=== PATIENT | female | born 1980 | race Caucasian/White ===

== ENCOUNTER → 2021-01-13 10:27 | Outpatient (BNVA) | payer OTHER, SELFPAY | PROVIDERS: Visit Provider Orthopaedic Surgery | DX: M23.91 Unspecified internal derangement of right knee (principal) | CPT/HCPCS: 99212 ==

== ENCOUNTER 2021-02-15 18:42 | Outpatient (REF) | payer OTHER, SELFPAY ==
--- NOTE | ~2021-02-15 | MR_ITS ---
EXAMINATION: MR KNEE WITHOUT CONTRAST, RIGHT CLINICAL INFORMATION: Unspecified internal derangement of right knee. Right knee medial pain, superior patella pain, symptoms since November 2020, tenderness, recent injury, and no previous surgery. COMPARISON: None TECHNIQUE: MRI of the knee without contrast was performed using routine sequences on a high-field scanner. FINDINGS: MENISCI: Medial Meniscus: Intact Lateral Meniscus: Intact LIGAMENTS: Cruciate: Intact Collateral: Intact EXTENSOR MECHANISM: The quadriceps and patellar tendons are intact. There are irregular enthesophytes at the quadriceps insertion site on the patella. There is mild nonspecific edema in the quadriceps fat pad. There is mild thickening and edema in the deep portion of the medial patellofemoral retinacular complex, toward the patellar insertion site, consistent with a mild sprain. ARTICULAR CARTILAGE/BONE: Patellofemoral Compartment: Normal. Medial Compartment: There are scattered areas of mild cartilage surface irregularity and thinning in the weightbearing medial compartment. Lateral Compartment: Normal. JOINT FLUID AND BURSAE: Normal. MR/MR knee RT wo con IMPRESSION: 1. Mild sprain of the medial patellofemoral retinacular complex. 2. Mild arthrosis in the weightbearing medial compartment.
== END 2021-02-15 18:43 | disposition home or self-care (01) ==
LOC: HO.MRI 18:42
PROVIDERS: Visit Provider Orthopaedic Surgery
DX: M23.91 Unspecified internal derangement of right knee (principal)
CPT/HCPCS: 73721

== ENCOUNTER → 2021-03-04 10:10 | Outpatient (BNVA) | payer OTHER, SELFPAY | PROVIDERS: Visit Provider Orthopaedic Surgery | DX: M70.50 Other bursitis of knee, unspecified knee (principal) | CPT/HCPCS: 99212 ==

== ENCOUNTER 2021-10-27 09:31 | Inpatient (IN) | payer OTHER, SELFPAY ==
[2021-10-27] VITALS (18 sets, daily range): BP systolic 103–138; BP diastolic 45–81; PULSE 82–103; RESP 16–20; TEMP 36.7–38; O2SAT 94–100; BMI 32.4; BMI 33.8
--- NOTE | ~2021-10-27 | CT_ITS ---
EXAMINATION: CT ABDOMEN AND PELVIS WITHOUT CONTRAST CLINICAL INFORMATION: Right rectal and buttock pain. COMPARISON: None TECHNIQUE: Multidetector volumetric imaging was performed from the superior aspect of the liver through the pubic symphysis. Sagittal and coronal reformatted images were obtained on the technologist's workstation. This CT examination was performed using dose optimization techniques as appropriate, variously including the following: *Automated exposure control *Adjustment of mA and/or kV according to patient size (this includes techniques or standardized protocols for targeted exams where dose is matched to indication/reason for exam; i.e. extremities or head) *Use of iterative reconstruction technique DLP: 707 mGy-cm FINDINGS: LUNG BASES: There is minimal atelectatic changes or scarring in both lung bases. Heart size is normal. LIVER, GALLBLADDER, AND BILIARY TREE: The liver is normal in size, shape, and attenuation. No focal hepatic lesion or biliary ductal dilatation is present. The gallbladder is unremarkable with no evidence of radiopaque gallstones, gallbladder wall thickening, or obvious pericholecystic inflammatory changes. PANCREAS: Unremarkable. SPLEEN: Unremarkable. ADRENAL GLANDS: Unremarkable. KIDNEYS AND URETERS: The kidneys are normal in size, shape, and attenuation. No hydronephrosis, hydroureter, or calculi seen. No perinephric stranding. BLADDER: Unremarkable. GASTROINTESTINAL TRACT: There is scattered stool and gas seen throughout the colon without any significant distention. Appendix is normal caliber. The small-bowel loops are normal caliber. ABDOMINAL WALL: There is a small umbilical hernia containing fat. LYMPH NODES: Normal. VASCULAR: Unremarkable. PELVIC VISCERA: There is a hypodense lesion in the right adnexa on top of the uterus measuring 3.5 x 2.5 x 2.46 cm and measuring 70 Hounsfield units, likely right ovarian cyst. OSSEOUS STRUCTURES: Unremarkable. CT/CT abdomen pelvis wo con IMPRESSION: No acute intra-abdominal process seen. Small hypodense lesion right adnexa on top of the uterus likely ovarian cyst. Correlation with ultrasound can be performed. Fleischner guidelines were followed.
--- NOTE | ~2021-10-27 | XR_ITS ---
EXAMINATION: XR CHEST CLINICAL INFORMATION: Shortness of breath. COMPARISON: Chest and rib radiographs dated 12/02/2010. TECHNIQUE: 2 views of the chest were obtained. FINDINGS: No significant abnormality is noted involving the heart, lungs, mediastinum, bony thorax or soft tissues. XR/XR chest 2V IMPRESSION: No acute cardiopulmonary process.
[2021-10-27 11:00] LABS: Basophils Percent Auto 0.1 % (0-2); Hematocrit 40.9 % (37.0-47.0); Hemoglobin 14.2 g/dl (12.0-16.0); Imm Gran Pct Auto 0.7 % (0.0-0.4); Lymphocytes Absolute Auto 1.4 X10*3/uL (1.2-4.9); Lymphocytes Percent Auto 5.3 % (20-40); MANUAL DIFF FLAG SCAN; Mean Corpuscular HGB Conc 34.7 g/dl (31.0-35.0); Mean Corpuscular Hemoglobin 29.8 pg (27.0-33.0); Mean Corpuscular Volume 85.9 fL (80.0-98.0); Monocytes Absolute Auto 1.4 X10*3/uL (0.1-1.2); Monocytes Percent Auto 5.2 % (2-11); Neutrophils Absolute Auto 23.8 x10*3/uL (2.0-8.3); Neutrophils Percent Auto 88.7 % (45-73); Platelet Count 221 X10*3/uL (160-400); Red Blood Count 4.76 X10*6/uL (4.20-5.50); Red Cell Distribution Width 12.2 % (11.0-16.0); SCAN SMEAR FLAG 1; White Blood Count 26.8 X10*3/uL (4.8-10.8)
[2021-10-27 11:17] LABS: Anion Gap 14 (12-20); Blood Urea Nitrogen 9 mg/dL (9-16); Calcium 9.4 mg/dL (8.4-10.2); Carbon Dioxide 23 mmol/L (22-29); Chloride 101 mmol/L (96-108); Creatinine Clr Calc Pharmacy 137.3; Estimated Glomerular Filt Rate > 60; Glucose Random 125 mg/dL (60-115); Potassium 3.5 mmol/L (3.3-5.1); Sodium 134 mmol/L (135-145)
--- NOTE | 2021-10-27 11:27 | ED_ITS ---
HPI - General Adult General Chief complaint: General Medical Stated complaint: anas abscess Time Seen by Provider: 10/27/21 11:17 Source: patient Mode of arrival: ambulatory Limitations: no limitations History of Present Illness HPI narrative: 40-year-old female presents for an anal abscess that started a few days ago. Last night the pain got severe, she feels that the pain is inside of her anus on the right side. States she was vomiting all night, she had chills, sweats, and subjective fevers last night. Related Data Home Medications Medication Instructions Recorded Confirmed levothyroxine PO 01/13/21 Previous Rx's Medication Instructions Recorded meloxicam 15 mg tablet 15 mg PO DAILY #30 tab 03/04/21 Allergies Allergy/AdvReac Type Severity Reaction Status Date / Time adhesive tape [ADHESIVE TAPE] Allergy Intermediate RASH Verified 03/04/21 10:16 adhesive Allergy Unknown rash Uncoded 09/19/18 00:00 Review of Systems Constitutional: Constitutional: Denies body ache(s), Reports chills, Reports fatigue, Reports fever(s), Denies headache(s), Reports malaise and Reports weakness Eyes: Eyes: Denies diplopia ENT: Denies vertigo, Denies dizziness, Denies otalgia, Denies headache(s), Denies mouth pain, Denies post nasal drip, Denies sinus pain, Denies sinus pressure, Denies sore throat and Denies throat swelling Cardiovascular: Cardiovascular: Denies chest pain, Denies syncope, Denies leg edema, Denies lightheadedness, Denies Loss of Consciousness, Denies palpitations and Denies dyspnea Respiratory: Respiratory: Denies chest congestion, Denies cough and Denies dys pnea Gastrointestinal: Gastrointestinal: Denies abdominal pain, Denies hematochezia, Denies constipation, Denies diarrhea, Reports nausea and Denies vomiting Genitourinary: Genitourinary: Reports no additional female genitourinary complaints Musculoskeletal: Musculoskeletal: Reports no additional musculoskeletal complaints Integumentary/Breasts: Comments: Pain in anus, large abscess Neurologic: Denies confusion, Denies vertigo, Denies dizziness, Denies syncope, Denies headache(s) and Reports weakness Psychiatric: Psychiatric: Reports anxiety, Denies confusion and Denies depression Endocrine: Endocrine: Reports fatigue and Denies palpitations Allergic/Immunologic: Allergic/Immunologic: Denies throat swelling PMFSH Past Medical History Surgical History H/O: hysterectomy Social History Social History Patient Tobacco Use Status: Current everyday Tobacco user Use of substances other than those prescribed or required for medical reasons: Yes Substance Use Type: Marijuana Substance Use Frequency: Daily Advance Directives: No Advance Directives Information Provided: No Current occupational status: employed Current occupation: [employer] Physical Exam ED Vital Signs: Vital Signs - 24 hr 10/27/21 10:35 10/27/21 10:56 10/27/21 11:09 Temperature 99.6 F 99.5 F 99.8 F Pulse Rate 103 H 84 96 Respiratory Rate 20 17 18 Blood Pressure 131/77 117/65 116/65 Pulse Oximetry 99 100 10/27/21 11:55 10/27/21 12:38 10/27/21 14:13 Temperature 98.8 F Pulse Rate 96 96 93 Respiratory Rate 18 18 20 Blood Pressure 138/81 134/75 121/71 Pulse Oximetry 97 95 10/27/21 15:01 10/27/21 16:00 10/27/21 16:03 Temperature 100.4 F 99.4 F Pulse Rate 94 92 93 Respiratory Rate 18 18 18 Blood Pressure 119/72 119/64 130/64 Pulse Oximetry 96 100 95 10/27/21 16:29 10/27/21 18:44 Temperature Pulse Rate 93 89 Respiratory Rate 17 18 Blood Pressure 108/52 L 113/71 Pulse Oximetry 97 98 BMI result Body Mass Index 32.4 Const General: alert, awake, acute distress, anxious and other (Tearful); No confusion Nutritional Appearance: well nourished Orientation/consciousness: patient oriented x3 and No confusion Limitations: no limitations HENMT Head: Yes normal to inspection, Yes normocephalic and Yes atraumatic Ears: hearing grossly normal bilaterally, external ears normal, TM's normal bilaterally and EAC's normal General nose exam: Normal external nose present Face and sinus: Yes normal facial exam and Yes sinuses nontender Mouth: Normal oral and palatal mucosa present Throat: Yes posterior oropharynx normal Eyes Conjunctivae: conjunctivae normal Pupils: Equal, round and reactive pupils present EOM: EOMs intact bilaterally Neck Neck: Yes full ROM, Yes no lymphadenopathy and Yes supple Resp Effort & Inspection: normal respiratory effort and able to speak in complete sentences Auscultation: clear to auscultation bilaterally, no crackles, no rales, no rhonchi and no wheezes Cardio Rate: regular rate Rhythm: regular rhythm Heart sounds: S1 normal heart sound present and S2 normal heart sound present GI Inspection: Yes normal to inspection Palpation (GI): Soft to palpation, nontender, no guarding and not rigid Percussion: Yes normal to percussion Auscultation: normal bowel sounds Rectal Exam - Female: visual inspection normal, normal sphincter tone, No Anal fissure(s) present and tenderness Skin Other: Patient complaining of right-sided rectal abscess, tender on right-side of internal rectal vault Neuro General: patient oriented x3 and No confusion Cranial nerves: Yes Equal, round and reactive pupils present Extrem General: Yes normal to inspection and Yes full ROM Psych Appearance: grossly normal Affect: normal affect Attitude: cooperative Thought process: Normal thought process present Course Course Course Narrative: 11:20 40-year-old female complains of abscess in her anus that got much worse last night. Subjective fevers last night. Patient meets sepsis criteria, she was initially tachycardic with a temperature of 99.8 degrees. Normotensive. Lactic returned at 1.0. White blood cell count 26.8. Initiated blood cultures, fluids, vanco, cefazolinto treat soft tissue infection at this time I called a sepsis alert Jami Erickson sepsis RN, spoke to me, and told me we are within the measure at this time Patient has a negative urine Gave morphine, Zofran, will image patient Patient extremely tender on rectal exam, no palpable abscess, patient very tender on right rectum wall Discussed imaging with Dr. Patel, who states patient weighing 88kg, an abscess should show up on CT. We are still in a global IV contrast shortage situation Reevaluation(s) Reevaluation #1: CT/CT abdomen pelvis wo con IMPRESSION: No acute intra-abdominal process seen. ? Small hypodense lesion right adnexa on top of the uterus likely ovarian cyst. Correlation with ultrasound can be performed.? CXR is negative, urine is negative. Patient has a source of infection, and dry CT scan is not showing any abscess Reevaluation #2: Spoke to [facility], Dr Rohit Fuentes, who did look at her CT and added this amendment: In the right mid to posterior perineum extending to the right medial gluteal region are two adjacent subcutaneous collections that appear contiguous. The first component is in the right perianal region at about the 7:00 position measuring approximately 3.7 x 2.2 x 3.2 cm (image 91, series 3; image 62, series 5). The second collection is seen mildly superior and lateral to the first measuring approximately 4.7 x 2.2 x 3.1 cm (image 84, series 3; image 55, series 5). Mild adjacent infiltrative changes are seen extending posteriorly into the medial right gluteal region. Evaluation for fistula is limited without intravenous contrast, but is suspected. This would be best delineated with contrast-enhanced pelvic MRI. Given these CT results, I re-examined patient. There is some induration of right buttock, no fluctuance or erythema. Patient is tender in her perineal region, no fluctuance or cellulitis. Pain patient states pain is inside her rectum Last meal was this morning [place] texted with Dr Gomez, who wants to come evaluate pt and take her to OR Reevaluation #3: DR Gomez will admit her and take her to OR Medical Decision Making Lab Data Result diagrams: 10/27/21 10:53 10/27/21 10:53 Labs: Lab Results 10/27/21 10/27/21 10/27/21 Range/Units 10:53 10:53 10:53 WBC 26.8 H (4.8-10.8) X10*3/uL RBC 4.76 (4.20-5.50) X10*6/uL Hgb 14.2 (12.0-16.0) g/dl Hct 40.9 (37.0-47.0) % MCV 85.9 (80.0-98.0) fL MCH 29.8 (27.0-33.0) pg MCHC 34.7 (31.0-35.0) g/dl RDW 12.2 (11.0-16.0) % Plt Count 221 (160-400) X10*3/uL MPV 11.0 (9.4-12.3) fL Immature Gran % (Auto) 0.7 H (0.0-0.4) % Neut % (Auto) 88.7 H (45-73) % Lymph % (Auto) 5.3 L (20-40) % [place] % (Auto) 5.2 (2-11) % Eos % (Auto) 0.0 (0-4) % Baso % (Auto) 0.1 (0-2) % Lymph # (Auto) 1.4 (1.2-4.9) X10*3/uL [place] # (Auto) 1.4 H (0.1-1.2) X10*3/uL Eos # (Auto) 0.0 (0.0-0.4) X10*3/uL Baso # (Auto) 0.0 (0.0-0.2) X10*3/uL Abs Immat Gran (auto) 0.20 H (0.00-0.03) X10*3/uL Absolute Neuts (auto) 23.8 H (2.0-8.3) x10*3/uL Absolute Nucleated RBC 0.000 (0.0-0.012) X10*3/uL Nucleated RBC % (auto) 0.0 (0.0-0.2) /100WBC Smear Tech's Comments VERIFIED Sodium 134 L (135-145) mmol/L Potassium 3.5 (3.3-5.1) mmol/L Chloride 101 (96-108) mmol/L Carbon Dioxide 23 (22-29) mmol/L Anion Gap 14 (12-20) BUN 9 (9-16) mg/dL Creatinine 0.61 (0.5-1.4) mg/dL Estim Creat Clear Calc 137.3 Estimated GFR > 60 Random Glucose 125 H (60-115) mg/dL Lactic Acid 1.0 (0.5-2.0) mmol/L Calcium 9.4 (8.4-10.2) mg/dL Urine Color Urine Appearance Urine pH (5.0-8.0) Ur Specific [place] (1.005-1.025) Urine Protein (NEG-TRACE) MG/DL Urine Glucose (UA) (NEG) MG/DL Urine Ketones (NEG) MG/DL Urine Blood (NEG) Urine Nitrite (NEG) Ur Leukocyte Esterase (NEG) Urine Test (NEGATIVE) COVID-19 (CHARLEY) (Negative) COVID-19 Clin Com 10/27/21 10/27/21 10/27/21 Range/Units 12:29 12:29 12:29 WBC (4.8-10.8) X10*3/uL RBC (4.20-5.50) X10*6/uL Hgb (12.0-16.0) g/dl Hct (37.0-47.0) % MCV (80.0-98.0) fL MCH (27.0-33.0) pg MCHC (31.0-35.0) g/dl RDW (11.0-16.0) % Plt Count (160-400) X10*3/uL MPV (9.4-12.3) fL Immature Gran % (Auto) (0.0-0.4) % Neut % (Auto) (45-73) % Lymph % (Auto) (20-40) % [place] % (Auto) (2-11) % Eos % (Auto) (0-4) % Baso % (Auto) (0-2) % Lymph # (Auto) (1.2-4.9) X10*3/uL [place] # (Auto) (0.1-1.2) X10*3/uL Eos # (Auto) (0.0-0.4) X10*3/uL Baso # (Auto) (0.0-0.2) X10*3/uL Abs Immat Gran (auto) (0.00-0.03) X10*3/uL Absolute Neuts (auto) (2.0-8.3) x10*3/uL Absolute Nucleated RBC (0.0-0.012) X10*3/uL Nucleated RBC % (auto) (0.0-0.2) /100WBC Smear Tech's Comments Sodium (135-145) mmol/L Potassium (3.3-5.1) mmol/L Chloride (96-108) mmol/L Carbon Dioxide (22-29) mmol/L Anion Gap (12-20) BUN (9-16) mg/dL Creatinine (0.5-1.4) mg/dL Estim Creat Clear Calc Estimated GFR Random Glucose (60-115) mg/dL Lactic Acid (0.5-2.0) mmol/L Calcium (8.4-10.2) mg/dL Urine Color YELLOW Urine Appearance CLEAR Urine pH 7.0 (5.0-8.0) Ur Specific [place] 1.015 (1.005-1.025) Urine Protein NEG (NEG-TRACE) MG/DL Urine Glucose (UA) NEG (NEG) MG/DL Urine Ketones NEG (NEG) MG/DL Urine Blood NEG (NEG) Urine Nitrite NEG (NEG) Ur Leukocyte Esterase NEG (NEG) Urine Test NEGATIVE (NEGATIVE) COVID-19 (CHARLEY) Negative (Negative) COVID-19 Clin Com See Note Discharge Plan Discharge Clinical Impression: Abscess, perirectal, Sepsis Patient Disposition: Admitted As Inpatient
[2021-10-27] MEDS: Morphine Sulfate 4 MG/ML CARTRIDGE IVPUSH ×2 (11:37→16:31)
[2021-10-27] MEDS: ondansetron HCL 4 MG/2 ML VIAL IVPUSH ×2 (11:38→16:31)
[2021-10-27] MEDS: ceFAZolin Sodium/Dextrose,Iso 2 GM/50 ML PIGGYBACK IV (11:38)
[2021-10-27] MEDS: 0.9 % Sodium Chloride 2,653.53 ML 2653.53 ML IV (11:39)
[2021-10-27] MEDS: vancomycin HCL 1,000 MG, vancomycin HCL 750 MG in 0.9 % Sodium Chloride 500 ML 267.5 MG IV (12:28)
[2021-10-27 12:39] LABS: Appearance Urine CLEAR; Color Urine YELLOW; Glucose Urine UA NEG (NEG); Leukocyte Esterase Urine NEG (NEG); Nitrite Urine NEG (NEG); Specific Gravity - Urine 1.015 (1.005-1.025); Urine Blood NEG (NEG); Urine Ketones NEG (NEG); Urine Protein NEG (NEG-TRACE)
[2021-10-27 12:44] LABS: UPreg QC Valid YES; Urine Pregnancy NEGATIVE (NEGATIVE)
[2021-10-27 12:55] LABS: COVID-19 Test Negative (Negative); IDNOW Serial# 16C4AD1C
[2021-10-27 13:14] LABS: SLIDE REVIEW VERIFIED
--- NOTE | 2021-10-27 16:03 | PC.NURSE ---
pt alert and oriented, skin flushed in color, pt states feeling achy all over and the nausea is coming back, vs stable
--- NOTE | 2021-10-27 19:06 | P.HPGS_ITS ---
History of Present Illness History of Present Illness Date of Service: 10/27/21 Chief complaint: perirectal abscess Narrative: Francine Rice is a 40 year old female who hasnt been feeling well last few days but went to work yesterday and then at end of shift noted pain in her rectal area and she felt nauseated and sick. denies any constipation, diarrhea changes and changes in her bowel habits or uti sx. she did have fevers and sharp rectal pain and so came to the ER. andersen revealed elevated wbc [address] scan showing perirectal abscess. Review of Systems Review of Systems: Yes all other systems are reviewed and are negative [facility] Family History Pertinent family history: no family hx IBD Surgical History Surgical History H/O: hysterectomy Social History Social History Patient Tobacco Use Status: Current everyday Tobacco user Use of substances other than those prescribed or required for medical reasons: Yes Substance Use Type: Marijuana Substance Use Frequency: Daily Advance Directives: No Advance Directives Information Provided: No Current occupational status: employed Current occupation: [employer] Allergies Allergy/AdvReac Type Severity Reaction Status Date / Time adhesive tape [ADHESIVE TAPE] Allergy Intermediate RASH Verified 03/04/21 10:16 adhesive Allergy Unknown rash Uncoded 09/19/18 00:00 Active Medications: Current Medications Pharmacy Consult (Consult Rx Vancomycin Dosing) 1 each MISCELLANE DAILY PRN PRN Reason: Consult order Home Medications Medication Instructions Recorded Confirmed Last Taken Type levothyroxine PO 01/13/21 Unknown History Physical Exam Vital Signs: Vital Signs: Last Vital Signs Temp 99.4 F 10/27/21 16:03 Pulse 89 10/27/21 18:44 Resp 18 10/27/21 18:44 BP 113/71 10/27/21 18:44 Pulse Ox 98 10/27/21 18:44 BMI result Body Mass Index 32.4 Const: General: cooperative and acute distress moderate Orientation/consciousness: oriented to person, oriented to place and oriented to time HEENT: Head: Yes normal to inspection Eyes: General: appearance normal, both eyes and all related structures Neck: Neck: Yes normal visual inspection Chest: Chest palpation & inspection: normal inspection of the chest Resp: Effort & Inspection: normal respiratory effort and able to speak in complete sentences Auscultation: clear to auscultation bilaterally Cardio: Rate: regular rate Rhythm: regular rhythm Heart sounds: S1 normal heart sound present and S2 normal heart sound present GI: Palpation (GI): Soft to palpation and nontender Auscultation: normal bowel sounds Rectal Exam - Female: other (right perineum perirectal tissue indurated and pt tender with palpation in ) Skin: General skin exam: no rashes or lesions noted Neuro: General: oriented to person, oriented to place and oriented to time Extrem: General: Yes normal to inspection and Yes full ROM Psych: Appearance: grossly normal Mental Status: mental status grossly normal Results Results Labs: Short CBC 10/27/21 Range/Units 10:53 WBC 26.8 H (4.8-10.8) X10*3/uL Hgb 14.2 (12.0-16.0) g/dl Hct 40.9 (37.0-47.0) % Plt Count 221 (160-400) X10*3/uL BMP 10/27/21 10:53 Sodium 134 L Potassium 3.5 Chloride 101 Carbon Dioxide 23 BUN 9 Creatinine 0.61 Calcium 9.4 Urine 10/27/21 10/27/21 Range/Units 12:29 12:29 Urine Color YELLOW Urine Appearance CLEAR Urine pH 7.0 (5.0-8.0) Ur Specific [place] 1.015 (1.005-1.025) Urine Protein NEG (NEG-TRACE) MG/DL Urine Glucose (UA) NEG (NEG) MG/DL Urine Test NEGATIVE (NEGATIVE) Abdomen CT scan report/results: report reviewed and image reviewed CT scan - pelvis: report reviewed and image reviewed Assessment and Plan (1) Abscess, perirectal: Status: Acute Plan 40 year old female with perianal abscess right side -? etiology tender, elevated wbc - plan to go to the OR for EUA and drainage, npo, ivf and iv antibx. pt understands risks and benefits and discussed with the patient Quality Stroke Does the patient have a stroke diagnosis?: No VTE Prior VTE?: No VTE Risk Level:: Surgical - low VTE Device Contraindication: N/A - Device Ordered VTE Drug Contraindication: Treatment Not Indicated Procedures Date of Service Date of Service: 10/27/21
--- NOTE | 2021-10-27 20:32 | HO.ANESPROP2 ---
[facility] Active Problems Active Problems: All Active Problems (Updated 10/27/21 @ 19:46 by Mae Rivero RN) Internal derangement of right knee (Acute) Pes anserine bursitis (Acute) Abscess, perirectal (Acute) Sepsis (Acute) Past Medical History Medical History Depression Hypothyroidism Smoker Functional capacity: independent ambulation Patient : No Family History Family history of problems with anesthesia: No Surgical History Surgical History H/O: hysterectomy History of Problems with Anesthesia: No Social History Social History Patient Tobacco Use Status: Current everyday Tobacco user Substance Use Type: Marijuana Current occupational status: employed Current occupation: [employer] Allergies Allergy/AdvReac Type Severity Reaction Status Date / Time adhesive tape [ADHESIVE TAPE] Allergy Intermediate RASH Verified 03/04/21 10:16 adhesive Allergy Unknown rash Uncoded 09/19/18 00:00 Active Medications: Current Medications Sodium Chloride (Ns) 1,000 mls @ 100 mls/hr IVCONT .Q10H [facility] Pharmacy Consult (Consult Rx Vancomycin Dosing) 1 each MISCELLANE DAILY PRN PRN Reason: Consult order Sodium Chloride (0.9 % Sodium Chloride Flush 3 Ml Syringe) 3 ml IVFLUSH QSHIFT [facility] Home Medications Medication Instructions Recorded Confirmed Last Taken Type fluoxetine 10 mg capsule 1 cap PO DAILY 10/27/21 Unknown History levothyroxine 137 mcg tablet 137 mcg PO MOTUWETHFRSA 10/27/21 Unknown History Exam Exam Date and Time: October 27, [id number] Height,Weight and Vital Signs: Height 5 ft 5 in Weight 88.451 kg Last Vital Signs Temp 99.4 F 10/27/21 19:58 Pulse 84 10/27/21 19:58 Resp 20 10/27/21 19:58 BP 117/68 10/27/21 19:58 Pulse Ox 96 10/27/21 19:58 Pertinent Lab Results Pertinent Lab Results: Laboratory Tests 10/27/21 10/27/21 10/27/21 10:53 10:53 10:53 WBC 26.8 H RBC 4.76 Hgb 14.2 Hct 40.9 MCV 85.9 MCH 29.8 MCHC 34.7 RDW 12.2 Plt Count 221 MPV 11.0 Immature Gran % (Auto) 0.7 H Neut % (Auto) 88.7 H Lymph % (Auto) 5.3 L [place] % (Auto) 5.2 Eos % (Auto) 0.0 Baso % (Auto) 0.1 Lymph # (Auto) 1.4 [place] # (Auto) 1.4 H Eos # (Auto) 0.0 Baso # (Auto) 0.0 Abs Immat Gran (auto) 0.20 H Absolute Neuts (auto) 23.8 H Absolute Nucleated RBC 0.000 Nucleated RBC % (auto) 0.0 Smear Tech's Comments VERIFIED Sodium 134 L Potassium 3.5 Chloride 101 Carbon Dioxide 23 Anion Gap 14 BUN 9 Creatinine 0.61 Estim Creat Clear Calc 137.3 Estimated GFR > 60 Random Glucose 125 H Lactic Acid 1.0 Calcium 9.4 Urine Color Urine Appearance Urine pH Ur Specific [place] Urine Protein Urine Glucose (UA) Urine Ketones Urine Blood Urine Nitrite Ur Leukocyte Esterase Urine Test COVID-19 (CHARLEY) COVID-Shopo 10/27/21 10/27/21 10/27/21 12:29 12:29 12:29 WBC RBC Hgb Hct MCV MCH MCHC RDW Plt Count MPV Immature Gran % (Auto) Neut % (Auto) Lymph % (Auto) [place] % (Auto) Eos % (Auto) Baso % (Auto) Lymph # (Auto) [place] # (Auto) Eos # (Auto) Baso # (Auto) Abs Immat Gran (auto) Absolute Neuts (auto) Absolute Nucleated RBC Nucleated RBC % (auto) Smear Tech's Comments Sodium Potassium Chloride Carbon Dioxide Anion Gap BUN Creatinine Estim Creat Clear Calc Estimated GFR Random Glucose Lactic Acid Calcium Urine Color YELLOW Urine Appearance CLEAR Urine pH 7.0 Ur Specific [place] 1.015 Urine Protein NEG Urine Glucose (UA) NEG Urine Ketones NEG Urine Blood NEG Urine Nitrite NEG Ur Leukocyte Esterase NEG Urine Test NEGATIVE COVID-19 (CHARLEY) Negative COVID-Shopo See Note Airway Mallampati Class: II TM Dist: >3cm Neck ROM: Full Heart: RRR Lungs: CTA Assessment and Plan Final Anesthetic Review Family History of Problems with Anesthesia: No History of Problems with Anesthesia: No ASA Class: II and Emergency Final Preanesthetic Review: Meds/Allgs Chart Reviewed, Consent Obtained/Reviewed and Anes Risks/Benef Reviewed Patient Risk: Intermediate Procedure Risk: Low Anesthetic Plan Anesthetic Plan: GA Disposition: Standard PACU
[2021-10-27] MEDS: Metoclopramide HCl 10 MG/2 ML VIAL IVPUSH (20:35)
--- NOTE | 2021-10-27 22:13 | PC.NURSE ---
charu spoke to so pt resting comfortably
[2021-10-27] MEDS: Piperacillin Sodium/Tazobactam 3.375 GM in 0.9 % Sodium Chloride 50 ML IV (23:23)
[2021-10-27] MEDS: 0.9 % Sodium Chloride 1,000 ML 100 ML IVCONT (23:27)
[2021-10-27] MEDS: 0.9 % Sodium Chloride Flush 3 ML SYRINGE IVFLUSH (23:27)
[2021-10-28] VITALS (7 sets, daily range): BP systolic 92–114; BP diastolic 49–60; PULSE 57–88; RESP 18; TEMP 36–36.6; O2SAT 94–98
[2021-10-28 05:34] LABS: Basophils Percent Auto 0.2 % (0-2); Hematocrit 36.3 % (37.0-47.0); Hemoglobin 12.2 g/dl (12.0-16.0); Imm Gran Abs Auto 0.16 X10*3/uL (0.00-0.03); Imm Gran Pct Auto 0.9 % (0.0-0.4); Lymphocytes Absolute Auto 0.9 X10*3/uL (1.2-4.9); Lymphocytes Percent Auto 5.1 % (20-40); MANUAL DIFF FLAG SCAN; Mean Corpuscular HGB Conc 33.6 g/dl (31.0-35.0); Mean Corpuscular Hemoglobin 29.8 pg (27.0-33.0); Mean Corpuscular Volume 88.8 fL (80.0-98.0); Mean Platelet Volume 11.3 fL (9.4-12.3); Monocytes Absolute Auto 0.4 X10*3/uL (0.1-1.2); Monocytes Percent Auto 2.2 % (2-11); Neutrophils Absolute Auto 16.5 x10*3/uL (2.0-8.3); Neutrophils Percent Auto 91.6 % (45-73); Platelet Count 178 X10*3/uL (160-400); Red Blood Count 4.09 X10*6/uL (4.20-5.50); Red Cell Distribution Width 12.3 % (11.0-16.0); SCAN SMEAR FLAG 1
[2021-10-28 06:04] LABS: SLIDE REVIEW VERIFIED
[2021-10-28] MEDS: Piperacillin Sodium/Tazobactam 3.375 GM in 0.9 % Sodium Chloride 50 ML IV ×3 (06:15→22:59)
[2021-10-28] MEDS: 0.9 % Sodium Chloride 1,000 ML 100 ML IVCONT ×3 (06:18→18:18)
--- NOTE | 2021-10-28 07:18 | PHA.MEDREC ---
Pharmacy Consult ? Medication Reconciliation [facility] has completed the medication reconciliation. Pharmacy reviewed.
--- NOTE | 2021-10-28 07:55 | PM.PNGS ---
Subjective Subjective Date of Service: 10/28/21 Interval history: POD #1 s/p EUA, I&D perirectal abscess. Feels sore but much improved. Feels hungry Physical Exam Vital Signs: Vital Signs: Last Vital Signs Temp 96.8 F 10/28/21 07:44 Pulse 63 10/28/21 07:44 Resp 18 10/28/21 07:44 BP 107/56 L 10/28/21 07:44 Pulse Ox 95 10/28/21 07:44 BMI result Body Mass Index 33.8 Const: General: no acute distress Nutritional Appearance: well nourished Orientation/consciousness: patient oriented x3 Limitations: no limitations Resp: Effort & Inspection: normal respiratory effort GI: Other: Perirectal wounds with packing intact, minimal sanguinous discharge noted. Minimal to no erythema Neuro: General: patient oriented x3 Extrem: Other: no edema Objective Data Active Medications Sodium Chloride (Ns) 1,000 mls @ 100 mls/hr IVCONT .Q10H [facility] Last Admin: 10/28/21 06:18 Dose: 100 mls/hr Documented by: SERGIO Piperacillin Sod/Tazobactam (Sod 3.375 gm/ Sodium Chloride) 50 mls @ 100 mls/hr IV Q8H [facility] Last Infusion: 10/28/21 07:08 Dose: 0 mls/hr Documented by: SERGIO Ketorolac Tromethamine (Ketorolac Tromethamine 30 Mg/Ml Vial) 30 mg IVPUSH Q6H PRN PRN Reason: Pain, Severe (Pain Scale 7-10) Ondansetron HCl (Ondansetron Hcl 4 Mg/2 Ml Vial) 4 mg IVPUSH ONCE PRN PRN Reason: Nausea and Vomiting Ondansetron HCl (Ondansetron Hcl 4 Mg/2 Ml Vial) 4 mg IVPUSH Q4H PRN PRN Reason: Nausea Oxycodone HCl (Oxycodone Hcl Immed Release 5 Mg Tablet) 5 mg PO ONCE PRN PRN Reason: Pain, Severe (Pain Scale 7-10) Oxycodone HCl (Oxycodone Hcl Immed Release 5 Mg Tablet) 10 mg PO Q4H PRN PRN Reason: Pain, Moderate (Pain Scale 4-6 Pharmacy Consult (Consult Rx Vancomycin Dosing) 1 each MISCELLANE DAILY PRN PRN Reason: Consult order Sodium Chloride (0.9 % Sodium Chloride Flush 3 Ml Syringe) 3 ml IVFLUSH QSHIFT [facility] Last Admin: 10/27/21 23:27 Dose: 3 ml Documented by: SERGIO Labs CBC & Chem 7: 10/28/21 05:17 10/27/21 10:53 Labs: Laboratory Results - last 24 hr 10/27/21 10/27/21 10/27/21 10:53 10:53 10:53 MCV 85.9 MCH 29.8 MCHC 34.7 RDW 12.2 Plt Count 221 MPV 11.0 Immature Gran % (Auto) 0.7 H Neut % (Auto) 88.7 H Lymph % (Auto) 5.3 L Miller % (Auto) 5.2 Eos % (Auto) 0.0 Baso % (Auto) 0.1 Lymph # (Auto) 1.4 Miller # (Auto) 1.4 H Eos # (Auto) 0.0 Baso # (Auto) 0.0 Abs Immat Gran (auto) 0.20 H Absolute Neuts (auto) 23.8 H Absolute Nucleated RBC 0.000 Nucleated RBC % (auto) 0.0 Smear Tech's Comments VERIFIED Anion Gap 14 Estim Creat Clear Calc 137.3 Estimated GFR > 60 Random Glucose 125 H Lactic Acid 1.0 Calcium 9.4 Urine Color Urine Appearance Urine pH Ur Specific [place] Urine Protein Urine Glucose (UA) Urine Ketones Urine Blood Urine Nitrite Ur Leukocyte Esterase Urine Test COVID-19 (CHARLEY) COVID-19 Clin [facility] 10/27/21 10/27/21 10/27/21 12:29 12:29 12:29 MCV MCH MCHC RDW Plt Count MPV Immature Gran % (Auto) Neut % (Auto) Lymph % (Auto) Miller % (Auto) Eos % (Auto) Baso % (Auto) Lymph # (Auto) Miller # (Auto) Eos # (Auto) Baso # (Auto) Abs Immat Gran (auto) Absolute Neuts (auto) Absolute Nucleated RBC Nucleated RBC % (auto) Smear Tech's Comments Anion Gap Estim Creat Clear Calc Estimated GFR Random Glucose Lactic Acid Calcium Urine Color YELLOW Urine Appearance CLEAR Urine pH 7.0 Ur Specific [place] 1.015 Urine Protein NEG Urine Glucose (UA) NEG Urine Ketones NEG Urine Blood NEG Urine Nitrite NEG Ur Leukocyte Esterase NEG Urine Test NEGATIVE COVID-19 (CHARLEY) Negative COVID-19 Clin Com See Note 10/28/21 05:17 MCV 88.8 MCH 29.8 MCHC 33.6 RDW 12.3 Plt Count 178 MPV 11.3 Immature Gran % (Auto) 0.9 H Neut % (Auto) 91.6 H Lymph % (Auto) 5.1 L [place] % (Auto) 2.2 Eos % (Auto) 0.0 Baso % (Auto) 0.2 Lymph # (Auto) 0.9 L [place] # (Auto) 0.4 Eos # (Auto) 0.0 Baso # (Auto) 0.0 Abs Immat Gran (auto) 0.16 H Absolute Neuts (auto) 16.5 H Absolute Nucleated RBC 0.000 Nucleated RBC % (auto) 0.0 Smear Tech's Comments VERIFIED Anion Gap Estim Creat Clear Calc Estimated GFR Random Glucose Lactic Acid Calcium Urine Color Urine Appearance Urine pH Ur Specific [place] Urine Protein Urine Glucose (UA) Urine Ketones Urine Blood Urine Nitrite Ur Leukocyte Esterase Urine Test COVID-19 (CHARLEY) COVID-19 Clin Com Microbiology Microbiology Results: Microbiology 10/27/21 11:18 Blood Culture - Final Blood - Venous 10/27/21 11:31 Blood Culture - Final Blood - Venous Procedures Date of Service Date of Service: 10/28/21 Progress Note: A&P Assessment and plan (1) Abscess, perirectal: Status: Acute (2) Sepsis: Status: Acute Plan POD # 1 s/p EUA, I&D. Feels improved. Wounds are clean, packing intact. WBC decreased to 18 K. Continue Zosyn, local wound care. Dressing changes as needed. Time Spent With Patient Time: Total time spent is greater than 50% in coordination of care (as documented) at patient's floor/unit and/or counseling patient: Quality Stroke Does the patient have a stroke diagnosis?: No VTE Prior VTE?: No VTE Risk Level:: Surgical - low VTE Device Contraindication: N/A - Device Ordered VTE Drug Contraindication: Treatment Not Indicated
[2021-10-28] MEDS: Loratadine 10 MG TABLET PO (08:31)
[2021-10-28] MEDS: ondansetron HCL 4 MG/2 ML VIAL IVPUSH ×2 (08:31→23:05)
[2021-10-28] MEDS: Ketorolac Tromethamine 30 MG/ML VIAL IVPUSH ×2 (08:32→19:32)
[2021-10-28] MEDS: 0.9 % Sodium Chloride Flush 3 ML SYRINGE IVFLUSH (08:32)
[2021-10-28] MEDS: FLUoxetine HCl 10 MG CAPSULE PO (08:33)
[2021-10-28] MEDS: Levothyroxine Sodium 112 MCG, Levothyroxine Sodium 25 MCG 137 MCG PO (08:49)
--- NOTE | 2021-10-28 09:48 | HO.POSTANES ---
Post Anesthesia Evaluation Post Anesthesia Evaluation Vital Signs: Vital Signs Temp Pulse Resp BP Pulse Ox 10/28/21 07:44 96.8 F 63 18 107/56 L 95 10/28/21 03:37 97.6 F 88 18 92/50 L 97 10/28/21 00:00 97.6 F 84 18 112/60 94 10/27/21 22:35 98.2 F 82 18 105/47 L 10/27/21 22:20 98.1 F 86 18 110/58 L 10/27/21 22:15 98.1 F 88 19 109/54 L 97 10/27/21 22:10 98.1 F 86 18 103/45 L 97 10/27/21 22:05 98.1 F 94 16 104/45 L 97 Anesthesia: General Mental Status: Awake Pain Control: Satisfactory Nausea/Vomiting: None Hydration: Adequate Anesthesia-Related Issues: No Anes. Related Issues
[2021-10-28] MEDS: oxyCODONE HCl Immed Release 5 MG TABLET 10 MG PO ×3 (12:44→23:05)
--- NOTE | 2021-10-28 15:59 | MHC.CM.PN ---
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
[2021-10-28] MEDS: Docusate Sodium 100 MG CAPSULE PO (20:21)
[2021-10-28] MEDS: Hydrocortisone 1 % Cream 28.35 GM TUBE 1 APPL TOPICAL (21:21)
[2021-10-29] MEDS: Ketorolac Tromethamine 30 MG/ML VIAL IVPUSH ×2 (02:35→21:48)
[2021-10-29 03:46] VITALS: BP 112/56; PULSE 52; RESP 18; TEMP 36.4; O2SAT 96
[2021-10-29] MEDS: 0.9 % Sodium Chloride 1,000 ML 100 ML IVCONT ×2 (03:47→15:11)
[2021-10-29 06:11] LABS: MANUAL DIFF FLAG NO
[2021-10-29] MEDS: Levothyroxine Sodium 112 MCG, Levothyroxine Sodium 25 MCG 137 MCG PO (06:11)
[2021-10-29] MEDS: Piperacillin Sodium/Tazobactam 3.375 GM in 0.9 % Sodium Chloride 50 ML IV ×3 (06:11→22:43)
[2021-10-29 06:17] LABS: Basophils Percent Auto 0.1 % (0-2); Eosinophils Percent Auto 0.3 % (0-4); Hematocrit 30.3 % (37.0-47.0); Hemoglobin 10.3 g/dl (12.0-16.0); Imm Gran Abs Auto 0.07 X10*3/uL (0.00-0.03); Imm Gran Pct Auto 0.5 % (0.0-0.4); Lymphocytes Absolute Auto 2.4 X10*3/uL (1.2-4.9); Lymphocytes Percent Auto 18.2 % (20-40); Mean Corpuscular Hemoglobin 29.8 pg (27.0-33.0); Mean Corpuscular Volume 87.6 fL (80.0-98.0); Mean Platelet Volume 11.6 fL (9.4-12.3); Monocytes Absolute Auto 0.9 X10*3/uL (0.1-1.2); Monocytes Percent Auto 7.2 % (2-11); Neutrophils Absolute Auto 9.6 x10*3/uL (2.0-8.3); Neutrophils Percent Auto 73.7 % (45-73); Platelet Count 182 X10*3/uL (160-400); Red Blood Count 3.46 X10*6/uL (4.20-5.50); Red Cell Distribution Width 12.8 % (11.0-16.0)
--- NOTE | 2021-10-29 07:36 | P.PNGS_ITS ---
Subjective Subjective Date of Service: 10/29/21 Interval history: Patient still reports some perirectal pain. Developed a rash from adhesive including EKG pads. Physical Exam Vital Signs: Vital Signs: Last Vital Signs Temp 97.5 F 10/29/21 03:46 Pulse 52 10/29/21 03:46 Resp 18 10/29/21 03:46 BP 112/56 L 10/29/21 03:46 Pulse Ox 96 10/29/21 03:46 BMI result Body Mass Index 33.8 Const: General: healthy appearing and no acute distress Nutritional Appearance: well nourished Orientation/consciousness: patient oriented x3 Limitations: no limitations Resp: Effort & Inspection: normal respiratory effort Back/Spine/Pelvis: Other: Wound examined; wick removed. No erythema or fluctuance. Wounds are clean and granulating. Neuro: General: patient oriented x3 Extrem: General: No edema Objective Data Active Medications Docusate Sodium (Docusate Sodium 100 Mg Capsule) 100 mg PO BID [facility] Last Admin: 10/28/21 20:21 Dose: 100 mg Documented by: LOYD Fluoxetine HCl (Fluoxetine Hcl 10 Mg Capsule) 10 mg PO DAILY [facility] Last Admin: 10/28/21 08:33 Dose: 10 mg Documented by: STEPHAN Hydrocortisone (Hydrocortisone 1 % Cream 28.35 Gm Tube) 1 appl TOPICAL BID PRN; Protocol PRN Reason: skin rash Last Admin: 10/28/21 21:21 Dose: 1 appl Documented by: LOYD Sodium Chloride (Ns) 1,000 mls @ 100 mls/hr IVCONT .Q10H [facility] Last Admin: 10/29/21 03:47 Dose: 100 mls/hr Documented by: LOYD Piperacillin Sod/Tazobactam (Sod 3.375 gm/ Sodium Chloride) 50 mls @ 100 mls/hr IV Q8H [facility] Last Infusion: 10/29/21 06:41 Dose: 0 mls/hr Documented by: LOYD Ketorolac Tromethamine (Ketorolac Tromethamine 30 Mg/Ml Vial) 30 mg IVPUSH Q6H PRN PRN Reason: Pain, Severe (Pain Scale 7-10) Last Admin: 10/29/21 02:35 Dose: 30 mg Documented by: LOYD Levothyroxine Sodium 112 mcg/ (Levothyroxine Sodium 25 mcg) 137 mcg PO DAILY@0 600 [facility] Last Admin: 10/29/21 06:11 Dose: 137 mcg Documented by: LOYD Loratadine (Loratadine 10 Mg Tablet) 10 mg PO DAILY [facility] Last Admin: 10/28/21 08:31 Dose: 10 mg Documented by: STEPHAN Ondansetron HCl (Ondansetron Hcl 4 Mg/2 Ml Vial) 4 mg IVPUSH ONCE PRN PRN Reason: Nausea and Vomiting Ondansetron HCl (Ondansetron Hcl 4 Mg/2 Ml Vial) 4 mg IVPUSH Q4H PRN PRN Reason: Nausea Last Admin: 10/28/21 23:05 Dose: 4 mg Documented by: LOYD Oxycodone HCl (Oxycodone Hcl Immed Release 5 Mg Tablet) 5 mg PO ONCE PRN PRN Reason: Pain, Severe (Pain Scale 7-10) Oxycodone HCl (Oxycodone Hcl Immed Release 5 Mg Tablet) 10 mg PO Q4H PRN PRN Reason: Pain, Moderate (Pain Scale 4-6 Last Admin: 10/28/21 23:05 Dose: 10 mg Documented by: LOYD Pharmacy Consult (Consult Rx Vancomycin Dosing) 1 each MISCELLANE DAILY PRN PRN Reason: Consult order Sodium Chloride (0.9 % Sodium Chloride Flush 3 Ml Syringe) 3 ml IVFLUSH QSHIFT [facility] Last Admin: 10/29/21 00:13 Dose: Not Given Documented by: LOYD Non-Admin Reason: IV Running Labs CBC & Chem 7: 10/29/21 05:19 10/27/21 10:53 Labs: Laboratory Results - last 24 hr 10/29/21 05:19 MCV 87.6 MCH 29.8 MCHC 34.0 RDW 12.8 Plt Count 182 MPV 11.6 Immature Gran % (Auto) 0.5 H Neut % (Auto) 73.7 H Lymph % (Auto) 18.2 L [place] % (Auto) 7.2 Eos % (Auto) 0.3 Baso % (Auto) 0.1 Lymph # (Auto) 2.4 [place] # (Auto) 0.9 Eos # (Auto) 0.0 Baso # (Auto) 0.0 Abs Immat Gran (auto) 0.07 H Absolute Neuts (auto) 9.6 H Absolute Nucleated RBC 0.000 Nucleated RBC % (auto) 0.0 Microbiology Microbiology Results: Microbiology 10/27/21 10:41 Blood Culture - Preliminary Blood - Venous No growth after 24 hours. 10/27/21 10:53 Blood Culture - Preliminary Blood - Venous No growth after 24 hours. 10/27/21 Unknown Gram Stain - Final Aline-rectal abscess Routine Culture - Preliminary Culture too young to evaluate. Anaerobic Culture - Preliminary Culture in progress. Procedures Date of Service Date of Service: 10/29/21 Progress Note: A&P Assessment and plan (1) Abscess, perirectal: Status: Acute Plan 40-year-old female patient previous perirectal abscess S/ P incision and drainage. Patient continues to improve with decreasing WBC. Wound appear clean with evidence of healing. There is no current evidence of a fistula. Continue local wound care. Patient may shower today. Possible discharge later today or tomorrow with p.o. antibiotics. Time Spent With Patient Time: Total time spent is greater than 50% in coordination of care (as documented) at patient's floor/unit and/or counseling patient: Quality Stroke Does the patient have a stroke diagnosis?: No VTE Prior VTE?: No VTE Risk Level:: Surgical - low VTE Device Contraindication: N/A - Device Ordered VTE Drug Contraindication: Treatment Not Indicated
[2021-10-29 08:00] VITALS: BP 116/68; PULSE 55; RESP 17; TEMP 36; O2SAT 95
[2021-10-29] MEDS: FLUoxetine HCl 10 MG CAPSULE PO (10:02)
[2021-10-29] MEDS: Loratadine 10 MG TABLET PO (10:02)
[2021-10-29] MEDS: Docusate Sodium 100 MG CAPSULE PO ×2 (10:02→20:20)
[2021-10-29] MEDS: 0.9 % Sodium Chloride Flush 3 ML SYRINGE IVFLUSH ×2 (10:03→21:48)
[2021-10-29] MEDS: Calcium Carbonate 750 MG TAB.CHEW PO ×2 (11:59→20:22)
[2021-10-29 12:00] VITALS: BP 121/66; PULSE 61; RESP 17; TEMP 36.1; O2SAT 94
[2021-10-29] MEDS: oxyCODONE HCl Immed Release 5 MG TABLET 10 MG PO ×2 (14:36→20:18)
[2021-10-29 15:26] VITALS: BP 118/62; PULSE 60; RESP 18; TEMP 36.2; O2SAT 97
[2021-10-29 20:00] VITALS: BP 138/80; PULSE 69; RESP 18; TEMP 36; O2SAT 97
[2021-10-29] MEDS: ondansetron HCL 4 MG/2 ML VIAL IVPUSH (22:43)
[2021-10-29 23:23] VITALS: BP 101/63; PULSE 60; RESP 18; TEMP 36.2; O2SAT 98
[2021-10-30 03:36] VITALS: BP 114/57; PULSE 60; RESP 18; TEMP 36.4; O2SAT 98
[2021-10-30] MEDS: Levothyroxine Sodium 112 MCG, Levothyroxine Sodium 25 MCG 137 MCG PO (06:15)
[2021-10-30] MEDS: Piperacillin Sodium/Tazobactam 3.375 GM in 0.9 % Sodium Chloride 50 ML IV ×2 (06:16→14:27)
[2021-10-30] MEDS: ondansetron HCL 4 MG/2 ML VIAL IVPUSH ×2 (06:22→14:27)
[2021-10-30] MEDS: Ketorolac Tromethamine 30 MG/ML VIAL IVPUSH (06:23)
[2021-10-30 07:00] LABS: Hematocrit 30.6 % (37.0-47.0); Hemoglobin 10.2 g/dl (12.0-16.0); Mean Corpuscular HGB Conc 33.3 g/dl (31.0-35.0); Mean Corpuscular Hemoglobin 29.6 pg (27.0-33.0); Mean Corpuscular Volume 88.7 fL (80.0-98.0); Mean Platelet Volume 11.6 fL (9.4-12.3); Platelet Count 171 X10*3/uL (160-400); Red Blood Count 3.45 X10*6/uL (4.20-5.50); Red Cell Distribution Width 12.8 % (11.0-16.0); White Blood Count 6.5 X10*3/uL (4.8-10.8)
[2021-10-30 08:00] VITALS: BP 95/61; PULSE 65; RESP 17; TEMP 36.4; O2SAT 93
[2021-10-30] MEDS: Docusate Sodium 100 MG CAPSULE PO (08:39)
[2021-10-30] MEDS: FLUoxetine HCl 10 MG CAPSULE PO (08:39)
[2021-10-30] MEDS: Loratadine 10 MG TABLET PO (08:39)
[2021-10-30] MEDS: 0.9 % Sodium Chloride Flush 3 ML SYRINGE IVFLUSH ×2 (08:40→14:27)
--- NOTE | 2021-10-30 09:03 | MHC.CM.PN ---
PT TO DC HOME TODAY WITH NO SERVICES PT WILL SELF-ARRANGE TRANSPORTATION
--- NOTE | 2021-10-30 09:45 | P.DS_ITS ---
DS: Providers Provider Date of Service: 10/30/21 Date of admission: 10/27/21 19:03 Date of discharge: 10/30/21 Primary care physician: Leeann Catherine MD DS: Diagnosis Discharge Diagnosis (1) Abscess, perirectal: Status: Acute DS: Summary Hospital Course Hospital Course: Francine Rice is a 40 year old female Presenting with complaints of increased rectal pain for the last several days. The pain seems to increase in severity while she was at work and was associated with nausea, anorexia, and constipation. She denies a previous history of similar symptoms. She reports fever with sharp rectal pain and therefore presented to the emergency department. [place] [address] of the abdomen and pelvis was positive for perirectal abscess. . On examination she was found to have a tender lump in the perirectal skin consistent with an abscess. She was subsequently taken to the OR on 10/27/2021. She underwent incision and drainage of a perirectal abscess in the OR. A large purulence collection was drained in the wounds packed with iodoform gauze. She tolerated the procedure well and was placed on IV antibiotics postoperatively. Over the next several days she underwent local wound care and IV antibiotics and noted improvement in the pain. WBC gradually decreased over the next several days and on the day of discharge was noted to be normal. Packing was removed on 10/29/2021 and in used discharge is noted from the wound. The surrounding skin reveals no erythema at this time. The patient is discharged to home on 10/30/2021 with instructions to perform warm soaks either in the shower or tub bath. This should be done 2-3 times daily. She should apply a a clean dressing or aline pad to cover the wounds. She was prescribed amoxicillin / clavulanic acid for the next 10 days. I have asked her to return to the office in approximately 1 week for wound examination. She should call fever, chills, increased pain, nausea, vomiting, or other concerns regarding the perirectal abscess. Time spent discussing smoking cessation with patient: 3 to 10 minutes Status at Discharge Functional status at discharge: independent ambulation Overall status at discharge: patient is back to baseline Time Spent with Patient Time attestation: Total time spent providing and/or coordinating discharge services: Discharge coordination time: Less than 30 minutes Quality: Safe Use of Opioids Does Pt have an Active Cancer Diagnosis on the Problem List?: No Quality: Stroke Does the patient have a stroke diagnosis?: No Physical Exam Vital Signs: Vital Signs: Last Vital Signs Temp 97.5 F 10/30/21 08:00 Pulse 65 10/30/21 08:00 Resp 17 10/30/21 08:00 BP 95/61 10/30/21 08:00 Pulse Ox 93 10/30/21 08:00 BMI result Body Mass Index 33.8 Const: General: healthy appearing and no acute distress Nutritional Appear ance: well nourished Orientation/consciousness: patient oriented x3 Limitations: no limitations Resp: Effort & Inspection: normal respiratory effort GI: Inspection: Yes normal to inspection Palpation (GI): Soft to palpation, nontender, no guarding and not rigid Back/Spine/Pelvis: Other: Perirectal abscess wounds are clean and intact. The wounds are open and draining appropriately. Neuro: General: patient oriented x3 Extrem: Other: No edema DS: Data Data Completed and Pending Labs on day of discharge: Laboratory Results - last 24 hr 10/30/21 06:00 WBC 6.5 RBC 3.45 L Hgb 10.2 L Hct 30.6 L MCV 88.7 MCH 29.6 MCHC 33.3 RDW 12.8 Plt Count 171 MPV 11.6 Absolute Nucleated RBC 0.000 Nucleated RBC % (auto) 0.0 Preliminary micro results at discharge 10/27/21 10:41 Blood Culture - Preliminary Blood - Venous No growth after 48 hours. 10/27/21 Unknown Anaerobic Culture - Preliminary Aline-rectal abscess Culture in progress. 10/27/21 10:53 Blood Culture - Preliminary Blood - Venous No growth after [address] scan - abdomen: Radiologist's impression: ITS Impressions Abdomen/Pelvis CT 10/27/21 13:22 IMPRESSION: No acute intra-abdominal process seen. Small hypodense lesion right adnexa on top of the uterus likely ovarian cyst. Correlation with ultrasound can be performed. Fleischner guidelines were followed. Chest X-Ray 10/27/21 17:06 IMPRESSION: No acute cardiopulmonary process. Discharge Plan Discharge Patient Disposition: Home, Self-Care Discharge Diagnosis: perirectal abscess Referrals: Gerald Carranza MD [Physician] - 1 Week Leeann Catherine MD [Primary Care Provider] - 1 Week Discharge Medications: New amoxicillin-pot clavulanate 875-125 mg tablet 1 tab PO BID Qty: 20 0RF docusate sodium [Colace] 100 mg capsule 100 mg PO BID PRN (Reason: constipation) Qty: 60 0RF oxycodone-acetaminophen [Endocet] 5-325 mg tablet 1 tab PO Q6H PRN (Reason: pain (scale score 7-10)) Qty: 14 0RF Continued levothyroxine 137 mcg tablet 137 mcg PO MOTUWETHFRSA@0630 0RF fluoxetine 10 mg capsule 1 cap PO DAILY 0RF loratadine [Claritin] 10 mg Tablet 10 mg PO DAILY 0RF Discharge Orders: Discharge Order (Routine); Ordered 10/30/21 Ordered By: Gerald Carranza Diet: advance to usual diet Activity on Discharge: As tolerated Stand Alone Forms: Patient Portal Discharge page, Work/School Release Activity Restrictions/Additional Instructions: Dry dressing to abscess site Hot sitz baths three times a day and after bowel movements Massage area of the abscess 4 times a day Follow up in office in a week. ([phone]) Call Your Doctor Or Return to ED If: ? ? -Your temperature exceeds 101.5? F? ? ? -You experience excessive pain or swelling ? ? -You have an unexpected reaction to medication ? ? -You experience continued vomiting/nausea Care Plan Goals: resolution of infection Health Concerns: Perirectal abscess, sepsis Plan of Treatment: S/p I &D, antibiotics Wound care Follow up in office Assessment: Improved
[2021-10-30 11:35] VITALS: BP 118/59; PULSE 58; RESP 18; TEMP 36.5; O2SAT 92
--- NOTE | 2021-11-03 23:26 | OP_ITS ---
date of procedure -10/27/2021 SURGEON: Elsie Gomez INDICATIONS: Patient is a 40-year-old female, comes in with rectal pain. Elevated white count 28,000. CT scan showing right-sided perirectal abscess. PREOPERATIVE DIAGNOSIS: Perirectal abscess. POSTOPERATIVE DIAGNOSIS: Perirectal abscess. PROCEDURE PERFORMED: Incision and drainage of perirectal abscess, complex. ESTIMATED BLOOD LOSS: About 2 cc. COMPLICATIONS: ANESTHESIA: General. ASSISTANTS: SPECIMENS: Specimen sent was abscess culture. FINDINGS: Perirectal abscess on the right side. DESCRIPTION OF PROCEDURE: Patient was brought into the operating room and under Anesthesia guidance, was intubated. She had compression stockings placed from before and after received preoperative antibiotics. She was placed in stirrups and rectal exam did not reveal any fluctuance areas. No pus in the rectal area. According to the CAT scan, the right side perirectal area should had been where the abscess was, but higher and deeper and 18-gauge needle was used to probe into an approximation of this area immediately and advancing about 3 cm, we received about 10 mL full of purulent material. This was sent off for culture. An 11 blade was then used here to make a stab wound and using finger dissection as well as a snap, we got into the abscess cavity. An elliptical skin excision was carried out and then finger dissection bluntly got into the cavity and drained significant amount of purulent material and then allowed suctioning and irrigation of this until the area became clean and then deep packing. Gauze was placed and mesh panties. At the end of the case, all sponge, instrument, needle counts were correct. Elsie Gomez SR/YESI / [id number] MTDShira
== END 2021-10-30 16:00 | disposition home or self-care (01) | DRG 720 ==
LOC: HO.ED 19:04 → HO.EDOVER 19:16 → HO.S3 19:16
PROVIDERS: Physician Assistant; Physician Assistant Surgical; Admitting Provider Surgery; Emergency Provider Emergency Medicine; PCP Internal Medicine; Visit Provider Surgery
PROC: 0H98XZZ Drainage of Buttock Skin, External Approach (ICD-10-PCS; CPT 46040; principal; 2021-10-27 19:00)
DX: A41.9 Sepsis, unspecified organism (principal); K61.1 Rectal abscess; E03.9 Hypothyroidism, unspecified; F17.210 Nicotine dependence, cigarettes, uncomplicated; F32.A Depression, unspecified; Z71.6 Tobacco abuse counseling; Z20.822 Contact with and (suspected) exposure to COVID-19; Z79.890 Hormone replacement therapy; Z79.899 Other long term (current) drug therapy
CPT/HCPCS: 36415; 71046; 74176; 80048; 81003; 81025; 83605; 85025; 85027; 87040; 87071; 87073; 87076; 87147; 87205; 87635; 96361; 96365; 96366; 96375; 96376; 99024; 99284; 99285; J0131; J0690; J1100; J1885; J2250; J2270; J2405; J2543; J2765; J3010; J3370

== ENCOUNTER 2021-10-31 10:01 | Emergency (ER) | payer OTHER, SELFPAY ==
--- NOTE | ~2021-10-31 | CT_ITS ---
EXAMINATION CT CHEST, ABDOMEN AND PELVIS WITHOUT CONTRAST CLINICAL INFORMATION: Nausea and vomiting. Question of pneumonia. COMPARISON: CT abdomen/pelvis dated 10/27/2021 TECHNIQUE: Multidetector volumetric CT imaging of the chest, abdomen and pelvis was obtained without the use of intravenous contrast. Coronal and sagittal reformats were reviewed. This CT examination was performed using dose optimization techniques as appropriate, variously including the following: *Automated exposure control *Adjustment of mA and/or kV according to patient size (this includes techniques or standardized protocols for targeted exams where dose is matched to indication/reason for exam; i.e. extremities or head) *Use of iterative reconstruction technique DLP: 704 mGy-cm. FINDINGS: CHEST LUNGS/PLEURA: The lungs are clear with no evidence of inflammation. There is a 3 mm nodule within the middle lobe. Small-moderate bilateral pleural effusions with accompanying atelectasis. Platelike atelectasis within the anterior segments of the lower lobes bilaterally and middle lobe. Diffuse mild bronchial wall thickening without bronchiectasis. MEDIASTINUM/ILIANA: Normal heart size. No pericardial effusion. Great vessels normal caliber. No mediastinal or hilar lymphadenopathy. CHEST WALL/AXILLA: Unremarkable. ABDOMEN/PELVIS HEPATOBILIARY: Liver normal in size, contour and morphology. No suspicious lesions. No intra or extrahepatic biliary dilation. Gallbladder phrygian cap. PANCREAS: Questionable inflammation along the inferior pancreatic head. No pancreatic mass. SPLEEN: Unremarkable. ADRENAL GLANDS: Unremarkable. KIDNEYS, URETERS AND BLADDER: Kidneys normal in size, axis and morphology demonstrating symmetric enhancement. No hydronephrosis or urinary calculi. Ureters normal in course and caliber. Bladder grossly unremarkable.. Small fluid within the right anterior pararenal space. GASTROINTESTINAL TRACT: No bowel obstruction. There is a small fluid in the anterior pararenal space on the right contiguous with the descending duodenum PELVIC VISCERA: Bilateral ovarian cysts redemonstrated. Uterus unremarkable. LYMPH NODES: No lymphadenopathy. PERITONEUM/BODY WALL: Small fat-containing umbilical hernia. Small volume pelvic free fluid. Small fluid within Morison's pouch. Previously seen collections in the right ischioanal fat have decreased in size, possibly related to intervention. Trace gas within the more inferior of the 2. Mild fat stranding remains in the right ischioanal fossa. VASCULAR STRUCTURES: Normal caliber aorta. OSSEOUS STRUCTURES No acute or suspicious osseous abnormalities. CT/CT abdomen pelvis wo con IMPRESSION: * Small-moderate bilateral pleural effusions with accompanying atelectasis. * Diffuse mild bronchial wall thickening as can be seen with bronchitis or asthma. No focal consolidation. * No bowel obstruction. * Nonspecific fat stranding and trace fluid associated within the right anterior pararenal space along the second and third portions of the duodenum possibly related to the inferior pancreatic head. Inflammation associated with the duodenum or pancreas could lead to this finding. Alternatively, may simply relate to fluid overload in the setting of systemic inflammation. * Small pelvic free fluid is increased in volume from prior. * Seen collections in the right ischioanal fossa have decreased in size or have resolved with mild stranding present. Small gas present in the location of the more inferior of the 2 collections is incompletely imaged and may reflect interim incision/drainage.
--- NOTE | ~2021-10-31 | XR_ITS ---
EXAMINATION: XR CHEST CLINICAL INFORMATION: Postop pneumonia COMPARISON: 10/28/2011 TECHNIQUE: Frontal view of the chest was obtained. FINDINGS: Bilateral patchy lower lung opacity partially obscuring the diaphragm. Small bilateral pleural effusions suspected. No pneumothorax. Normal heart size and pulmonary vascularity. No acute osseous abnormalities. XR/XR chest 1V IMPRESSION: Bibasilar subsegmental atelectasis or consolidation, likely with small pleural effusions.
[2021-10-31 10:35] VITALS: BP 115/68; BP 130/82; PULSE 60; PULSE 61; RESP 16; TEMP 36.8; O2SAT 97; O2SAT 98; BMI 32.4
--- NOTE | 2021-10-31 10:58 | ECG_ITS ---
Test Reason : NAUSEA/VOMITING Blood Pressure : / mmHG Vent. Rate : 050 BPM Atrial Rate : 050 BPM P-R Int : 126 ms QRS Dur : 090 ms QT Int : 478 ms P-R-T Axes : 023 076 041 degrees QTc Int : 435 ms Sinus bradycardia Otherwise normal ECG No previous ECGs available Referred By: Sebastian Robertson Electronically Signed By:MENG CHANG
--- NOTE | 2021-10-31 11:03 | ED_ITS ---
HPI - General Adult General Chief complaint: General Medical Stated complaint: NAUSEA,VOMITING Time Seen by Provider: 10/31/21 10:07 Source: patient Mode of arrival: ambulatory Limitations: no limitations History of Present Illness HPI narrative: 40-year-old female recently diagnosed with sepsis and status post incision and drainage of perirectal abscess presents to ED for nausea and vomiting. Patient states she was discharged yesterday from the floor and during the nighttime continue to have worsening nausea & vomiting . Patient states small/not much amount bowel movement. Patient feels bloating. Patient denies any chest pain, shortness of breath, abdominal pain, leg swelling, coughing up blood, or calf pain. Patient admits to having vomiting yesterday morning while being admitted on surgical floor. Related Data Home Medications Medication Instructions Recorded Confirmed fluoxetine 10 mg capsule 1 cap PO DAILY 10/27/21 10/28/21 levothyroxine 137 mcg tablet 137 mcg PO MOTUWETHFRSA@0630 10/27/21 10/28/21 loratadine 10 mg tablet (Claritin) 10 mg PO DAILY 10/28/21 10/28/21 Previous Rx's Medication Instructions Recorded amoxicillin 875 mg-potassium 1 tab PO BID #20 tab 10/28/21 clavulanate 125 mg tablet docusate sodium 100 mg capsule 100 mg PO BID PRN #60 cap 10/28/21 (Colace) oxycodone-acetaminophen 5 mg-325 1 tab PO Q6H PRN #14 tab 10/30/21 mg tablet (Endocet) ondansetron 4 mg disintegrating 4 mg PO TID 4 Days #12 tab 10/31/21 tablet Allergies Allergy/AdvReac Type Severity Reaction Status Date / Time adhesive tape [ADHESIVE TAPE] Allergy Intermediate RASH Verified 03/04/21 10:16 adhesive Allergy Unknown rash Uncoded 09/19/18 00:00 Review of Systems Review of Systems: Nausea vomiting PMFSH Past Medical History Medical History Depression Hypothyroidism Smoker Surgical History H/O: hysterectomy Social History Social History Household Members: Family and Children Housing: House Patient Tobacco Use Status: Current everyday Tobacco user Tobacco use type: Cigarette Cigarettes Per Day: 12 Second Hand Smoke Exposure: No Substance Use Type: Marijuana Advance Directives: No service: No Current occupational status: employed 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 - [employer] Physical Exam ED Vital Signs: Vital Signs - 24 hr 10/31/21 10:35 10/31/21 18:53 Temperature 98.2 F 97.2 F Pulse Rate 61 60 Respiratory Rate 16 16 Blood Pressure 115/68 122/72 Pulse Oximetry 97 98 BMI result Body Mass Index 32.4 Const General: cooperative, healthy appearing, comfortable, no acute distress, well developed, alert, awake and Physically active Orientation/consciousness: oriented to time and patient oriented x3 HENMT Head: Yes normal to inspection, Yes No palpable skull fracture present, Yes normocephalic, Yes atraumatic and No abrasion Eyes General: appearance normal, both eyes and all related structures Neck Neck: Yes normal visual inspection, Yes full ROM, Yes no lymphadenopathy, Yes no meningeal signs, Yes trachea midline, Yes supple, No anterior neck swelling and No tender Chest Chest palpation & inspection: normal inspection of the chest and normal palpation of entire chest wall Resp Effort & Inspection: normal respiratory effort and able to speak in complete sentences Auscultation: clear to auscultation bilaterally Cardio Jugular venous distension: no JVD Heart sounds: S1 normal heart sound present and S2 normal heart sound present GI Inspection: Yes normal to inspection and No abdominal wall ecchymosis Palpation (GI): Soft to palpation, not firm, nontender, no guarding and not rigid General: No CVA tenderness and Yes no CVA tenderness Back/Spine/Pelvis Back: no CVA tenderness, No CVA tenderness and No back tenderness Skin General skin exam: no rashes or lesions noted and elasticity normal Neuro Other: Negative for any neuro deficits. General: oriented to time, patient oriented x3, gait normal, no meningeal signs and CN's II-XI intact bilaterally Cranial nerves: Yes CN's II-XII intact bilaterally Extrem Other: Lower extremities negative for swelling, pitting edema, or calf tenderness. Psych Appearance: grossly normal, well kempt and not disheveled Course Course Course Narrative: Patient will have labs drawn. Vital signs stable. Will check for postop pneumonia and postop bowel obstruction and postop UTI. Patient well-appearing Reevaluation(s) Reevaluation #1: Patient vital signs are stable. Patient labs are normal. EKG negative STEMI. Troponin negative after having symptoms for over 6 hours. BNP slightly elevated but no signs of fluid overload. Chest x-ray negative for cardiomegaly. NOt suspecting CHF. O2 saturation normal. Case was discussed with Dr. De Souza surgeon on-call and he was informed patient labs, history physical exam and he read copy of patient's CT scan results. He also came to the ER and evaluated patient states patient could be discharged. Patient does not have any postop UTI, pneumonia, or small-bowel obstruction. There is no recurrence of perirectal abscess. Patient to be discharged with Zofran. Not suspecting PE. Patient denies any chest pain or shortness of breath. O2 saturation room air 98%. History physical exam does not indicate pancreatitis. Patient does not have any abdominal pain and lipase normal. Patient passed p.o. challenge. Time: 18:30 Medical Decision Making MDM Narrative Medical decision making narrative: Nausea vomiting. Lab Data Result diagrams: 10/31/21 11:47 10/31/21 11:29 Labs: Lab Results 10/31/21 10/31/21 10/31/21 Range/Units 11:29 11:29 11:29 WBC (4.8-10.8) X10*3/uL RBC (4.20-5.50) X10*6/uL Hgb (12.0-16.0) g/dl Hct (37.0-47.0) % MCV (80.0-98.0) fL MCH (27.0-33.0) pg MCHC (31.0-35.0) g/dl RDW (11.0-16.0) % Plt Count (160-400) X10*3/uL MPV (9.4-12.3) fL Immature Gran % (Auto) (0.0-0.4) % Neut % (Auto) (45-73) % Lymph % (Auto) (20-40) % [place] % (Auto) (2-11) % Eos % (Auto) (0-4) % Baso % (Auto) (0-2) % Lymph # (Auto) (1.2-4.9) X10*3/uL [place] # (Auto) (0.1-1.2) X10*3/uL Eos # (Auto) (0.0-0.4) X10*3/uL Baso # (Auto) (0.0-0.2) X10*3/uL Abs Immat Gran (auto) (0.00-0.03) X10*3/uL Absolute Neuts (auto) (2.0-8.3) x10*3/uL Absolute Nucleated RBC (0.0-0.012) X10*3/uL Nucleated RBC % (auto) (0.0-0.2) /100WBC Sodium 142 (135-145) mmol/L Potassium 3.9 (3.3-5.1) mmol/L Chloride 110 H (96-108) mmol/L Carbon Dioxide 23 (22-29) mmol/L Anion Gap 13 (12-20) BUN 11 (9-16) mg/dL Creatinine 0.66 (0.5-1.4) mg/dL Estim Creat Clear Calc 126.9 Estimated GFR > 60 Random Glucose 91 (60-115) mg/dL Lactic Acid (0.5-2.0) mmol/L Calcium 8.9 (8.4-10.2) mg/dL Total Bilirubin 0.6 (0.0-1.0) mg/dL AST 18 (5-31) U/L ALT 32 H (0-31) U/L Alkaline Phosphatase 36 L (39-117) U/L Troponin I High Sens < 3.5 (<3.5-17.0) ng/L B-Natriuretic Peptide (<100) pg/mL Total Protein 6.4 L (6.5-8.0) g/dL Albumin 3.5 (3.5-5.0) g/dL Lipase 21 (8-78) U/L Beta HCG, Quant < 2 mIU/mL Urine Color Urine Appearance Urine pH (5.0-8.0) Ur Specific [place] (1.005-1.025) Urine Protein (NEG-TRACE) MG/DL Urine Glucose (UA) (NEG) MG/DL Urine Ketones (NEG) MG/DL Urine Blood (NEG) Urine Nitrite (NEG) Ur Leukocyte Esterase (NEG) Urine Test (NEGATIVE) Influenza Type A (PCR) (Negative) Influenza Type B (PCR) (Negative) RSV RNA Qual (PCR) (Negative) SARS-CoV-2 RNA (RT-PCR) (Negative) 10/31/21 10/31/21 10/31/21 Range/Units 11:29 11:29 11:47 WBC 9.5 (4.8-10.8) X10*3/uL RBC 3.75 L (4.20-5.50) X10*6/uL Hgb 11.2 L (12.0-16.0) g/dl Hct 33.1 L (37.0-47.0) % MCV 88.3 (80.0-98.0) fL MCH 29.9 (27.0-33.0) pg MCHC 33.8 (31.0-35.0) g/dl RDW 12.3 (11.0-16.0) % Plt Count 213 (160-400) X10*3/uL MPV 11.0 (9.4-12.3) fL Immature Gran % (Auto) 0.2 (0.0-0.4) % Neut % (Auto) 72.9 (45-73) % Lymph % (Auto) 17.4 L (20-40) % [place] % (Auto) 7.9 (2-11) % Eos % (Auto) 1.5 (0-4) % Baso % (Auto) 0.1 (0-2) % Lymph # (Auto) 1.7 (1.2-4.9) X10*3/uL [place] # (Auto) 0.8 (0.1-1.2) X10*3/uL Eos # (Auto) 0.1 (0.0-0.4) X10*3/uL Baso # (Auto) 0.0 (0.0-0.2) X10*3/uL Abs Immat Gran (auto) 0.02 (0.00-0.03) X10*3/uL Absolute Neuts (auto) 6.9 (2.0-8.3) x10*3/uL Absolute Nucleated RBC 0.000 (0.0-0.012) X10*3/uL Nucleated RBC % (auto) 0.0 (0.0-0.2) /100WBC Sodium (135-145) mmol/L Potassium (3.3-5.1) mmol/L Chloride (96-108) mmol/L Carbon Dioxide (22-29) mmol/L Anion Gap (12-20) BUN (9-16) mg/dL Creatinine (0.5-1.4) mg/dL Estim Creat Clear Calc Estimated GFR Random Glucose (60-115) mg/dL Lactic Acid (0.5-2.0) mmol/L Calcium (8.4-10.2) mg/dL Total Bilirubin (0.0-1.0) mg/dL AST (5-31) U/L ALT (0-31) U/L Alkaline Phosphatase (39-117) U/L Troponin I High Sens (<3.5-17.0) ng/L B-Natriuretic Peptide (<100) pg/mL Total Protein (6.5-8.0) g/dL Albumin (3.5-5.0) g/dL Lipase (8-78) U/L Beta HCG, Quant mIU/mL Urine Color YELLOW Urine Appearance CLEAR Urine pH 7.0 (5.0-8.0) Ur Specific [place] <= 1.005 (1.005-1.025) Urine Protein NEG (NEG-TRACE) MG/DL Urine Glucose (UA) NEG (NEG) MG/DL Urine Ketones NEG (NEG) MG/DL Urine Blood NEG (NEG) Urine Nitrite NEG (NEG) Ur Leukocyte Esterase NEG (NEG) Urine Test NEGATIVE (NEGATIVE) Influenza Type A (PCR) (Negative) Influenza Type B (PCR) (Negative) RSV RNA Qual (PCR) (Negative) SARS-CoV-2 RNA (RT-PCR) (Negative) 10/31/21 10/31/21 10/31/21 Range/Units 11:47 16:55 17:11 WBC (4.8-10.8) X10*3/uL RBC (4.20-5.50) X10*6/uL Hgb (12.0-16.0) g/dl Hct (37.0-47.0) % MCV (80.0-98.0) fL MCH (27.0-33.0) pg MCHC (31.0-35.0) g/dl RDW (11.0-16.0) % Plt Count (160-400) X10*3/uL MPV (9.4-12.3) fL Immature Gran % (Auto) (0.0-0.4) % Neut % (Auto) (45-73) % Lymph % (Auto) (20-40) % [place] % (Auto) (2-11) % Eos % (Auto) (0-4) % Baso % (Auto) (0-2) % Lymph # (Auto) (1.2-4.9) X10*3/uL [place] # (Auto) (0.1-1.2) X10*3/uL Eos # (Auto) (0.0-0.4) X10*3/uL Baso # (Auto) (0.0-0.2) X10*3/uL Abs Immat Gran (auto) (0.00-0.03) X10*3/uL Absolute Neuts (auto) (2.0-8.3) x10*3/uL Absolute Nucleated RBC (0.0-0.012) X10*3/uL Nucleated RBC % (auto) (0.0-0.2) /100WBC Sodium (135-145) mmol/L Potassium (3.3-5.1) mmol/L Chloride (96-108) mmol/L Carbon Dioxide (22-29) mmol/L Anion Gap (12-20) BUN (9-16) mg/dL Creatinine (0.5-1.4) mg/dL Estim Creat Clear Calc Estimated GFR Random Glucose (60-115) mg/dL Lactic Acid 1.0 (0.5-2.0) mmol/L Calcium (8.4-10.2) mg/dL Total Bilirubin (0.0-1.0) mg/dL AST (5-31) U/L ALT (0-31) U/L Alkaline Phosphatase (39-117) U/L Troponin I High Sens (<3.5-17.0) ng/L B-Natriuretic Peptide 173 H (<100) pg/mL Total Protein (6.5-8.0) g/dL Albumin (3.5-5.0) g/dL Lipase (8-78) U/L Beta HCG, Quant mIU/mL Urine Color Urine Appearance Urine pH (5.0-8.0) Ur Specific [place] (1.005-1.025) Urine Protein (NEG-TRACE) MG/DL Urine Glucose (UA) (NEG) MG/DL Urine Ketones (NEG) MG/DL Urine Blood (NEG) Urine Nitrite (NEG) Ur Leukocyte Esterase (NEG) Urine Test (NEGATIVE) Influenza Type A (PCR) NEGATIVE (Negative) Influenza Type B (PCR) NEGATIVE (Negative) RSV RNA Qual (PCR) NEGATIVE (Negative) SARS-CoV-2 RNA (RT-PCR) NEGATIVE (Negative) ECG Data Interpretation: Sinus bradycardia. Reticular 50. Pr interval 126. QRS 90 pr QTC 435. Negative STEMI Discharge Plan Discharge Clinical Impression: Nausea & vomiting Patient Disposition: Home, Self-Care Instructions: Acute Nausea and Vomiting (ED) Additional Instructions: Your blood work came back normal. Your images came back negative for any emergent surgical/medical etiology. Continue taking antibiotics and you will be discharged with nausea medication. Please follow-up with Dr. De Souza of surgery. Return to ED for any abdominal pain, nausea, vomiting, flank pain, fever, chills, vaginal discharge, vaginal bleeding, rectal bleeding, headache, dizziness, chest pain, shortness of breath, calf swelling, calf pain, leg swelling, chest pain on inspiration, coughing up blood, or any other concerning symptoms. Prescriptions: New ondansetron 4 mg tablet,disintegrating 4 mg PO TID 4 Days Qty: 12 0RF No Action levothyroxine 137 mcg tablet 137 mcg PO MOTUWETHFRSA@0630 0RF fluoxetine 10 mg capsule 1 cap PO DAILY 0RF loratadine [Claritin] 10 mg Tablet 10 mg PO DAILY 0RF amoxicillin-pot clavulanate 875-125 mg tablet 1 tab PO BID Qty: 20 0RF docusate sodium [Colace] 100 mg capsule 100 mg PO BID PRN (Reason: constipation) Qty: 60 0RF oxycodone-acetaminophen [Endocet] 5-325 mg tablet 1 tab PO Q6H PRN (Reason: pain (scale score 7-10)) Qty: 14 0RF Referrals: Dago De Souza MD [Physician] - (Status post perirectal abscess drainage.) Stand Alone Forms: Work/School Release Discharge Date/Time: 10/31/21 19:10 Print Language: Serbian
[2021-10-31] MEDS: 0.9 % Sodium Chloride 1,000 ML 999 ML IV (11:24)
[2021-10-31] MEDS: ondansetron HCL 4 MG/2 ML VIAL IVPUSH ×2 (11:24→17:41)
[2021-10-31 11:41] LABS: Appearance Urine CLEAR; Color Urine YELLOW; Glucose Urine UA NEG (NEG); Leukocyte Esterase Urine NEG (NEG); Nitrite Urine NEG (NEG); Specific Gravity - Urine <= 1.005 (1.005-1.025); Urine Blood NEG (NEG); Urine Ketones NEG (NEG); Urine Protein NEG (NEG-TRACE)
[2021-10-31 11:48] LABS: UPreg QC Valid YES; Urine Pregnancy NEGATIVE (NEGATIVE)
[2021-10-31 11:51] LABS: MANUAL DIFF FLAG NO
[2021-10-31 11:52] LABS: Basophils Percent Auto 0.1 % (0-2); Eosinophils Absolute Auto 0.1 X10*3/uL (0.0-0.4); Eosinophils Percent Auto 1.5 % (0-4); Hematocrit 33.1 % (37.0-47.0); Hemoglobin 11.2 g/dl (12.0-16.0); Imm Gran Abs Auto 0.02 X10*3/uL (0.00-0.03); Imm Gran Pct Auto 0.2 % (0.0-0.4); Lymphocytes Absolute Auto 1.7 X10*3/uL (1.2-4.9); Lymphocytes Percent Auto 17.4 % (20-40); Mean Corpuscular HGB Conc 33.8 g/dl (31.0-35.0); Mean Corpuscular Hemoglobin 29.9 pg (27.0-33.0); Mean Corpuscular Volume 88.3 fL (80.0-98.0); Monocytes Absolute Auto 0.8 X10*3/uL (0.1-1.2); Monocytes Percent Auto 7.9 % (2-11); Neutrophils Absolute Auto 6.9 x10*3/uL (2.0-8.3); Neutrophils Percent Auto 72.9 % (45-73); Platelet Count 213 X10*3/uL (160-400); Red Blood Count 3.75 X10*6/uL (4.20-5.50); Red Cell Distribution Width 12.3 % (11.0-16.0); White Blood Count 9.5 X10*3/uL (4.8-10.8)
[2021-10-31 11:53] LABS: Lipase 21 U/L (8-78)
[2021-10-31 11:55] LABS: Alanine Aminotransferase 32 U/L (0-31); Albumin Level 3.5 g/dL (3.5-5.0); Alkaline Phosphatase 36 U/L (39-117); Anion Gap 13 (12-20); Aspartate Amino Transferase 18 U/L (5-31); Bilirubin Total 0.6 mg/dL (0.0-1.0); Blood Urea Nitrogen 11 mg/dL (9-16); Calcium 8.9 mg/dL (8.4-10.2); Carbon Dioxide 23 mmol/L (22-29); Chloride 110 mmol/L (96-108); Creatinine Clr Calc Pharmacy 126.9; Estimated Glomerular Filt Rate > 60; Glucose Random 91 mg/dL (60-115); Potassium 3.9 mmol/L (3.3-5.1); Sodium 142 mmol/L (135-145); Total Protein 6.4 g/dL (6.5-8.0)
[2021-10-31 11:56] LABS: Troponin-I High Sensitivity < 3.5 ng/L (<3.5-17.0)
[2021-10-31 12:00] LABS: HCG Quantitative < 2 mIU/mL
[2021-10-31 17:45] LABS: Influenza A PCR NEGATIVE (Negative); Influenza B PCR NEGATIVE (Negative); Resp Syncy Virus RNA Qual PCR NEGATIVE (Negative); SARS COV2 PCR INHOUSE NEGATIVE (Negative)
[2021-10-31 17:47] LABS: B Type Natriuretic Peptide 173 pg/mL (<100)
[2021-10-31] MEDS: Amoxicillin/Potassium Clav 875 MG TABLET PO (18:50)
[2021-10-31 18:53] VITALS: BP 122/72; PULSE 60; RESP 16; TEMP 36.2; O2SAT 98
== END 2021-10-31 19:10 | disposition home or self-care (01) ==
PROVIDERS: Physician Assistant; Emergency Provider Emergency Medicine; PCP Internal Medicine
DX: R11.2 Nausea with vomiting, unspecified (principal); R00.1 Bradycardia, unspecified; R06.02 Shortness of breath; M54.6 Pain in thoracic spine; R10.9 Unspecified abdominal pain; F17.210 Nicotine dependence, cigarettes, uncomplicated; F12.90 Cannabis use, unspecified, uncomplicated; Z20.822 Contact with and (suspected) exposure to COVID-19; Z71.6 Tobacco abuse counseling; Z79.899 Other long term (current) drug therapy
CPT/HCPCS: 0241U; 36415; 71045; 71250; 74176; 80053; 81003; 81025; 83605; 83690; 83880; 84484; 84702; 85025; 87040; 93005; 96361; 96374; 96376; 99284; J2405

== ENCOUNTER → 2021-11-03 15:26 | Outpatient (BNVA) | payer OTHER, SELFPAY | PROVIDERS: PCP Internal Medicine; Referring Provider Internal Medicine; Visit Provider Surgery | DX: Z48.00 Encounter for change or removal of nonsurgical wound dressing (principal); Z87.2 Personal history of diseases of the skin and subcutaneous tissue; Z79.2 Long term (current) use of antibiotics | CPT/HCPCS: 99212 ==

== ENCOUNTER 2021-12-03 15:55 | Emergency (ER) | payer OTHER, SELFPAY ==
[2021-12-03 16:18] VITALS: BP 132/85; PULSE 64; RESP 16; TEMP 36.9; O2SAT 99; BMI 33.5
--- NOTE | 2021-12-03 16:24 | ECG_ITS ---
Test Reason : PALPITATIONS Blood Pressure : / mmHG Vent. Rate : 060 BPM Atrial Rate : 060 BPM P-R Int : 126 ms QRS Dur : 088 ms QT Int : 422 ms P-R-T Axes : 062 073 047 degrees QTc Int : 422 ms Normal sinus rhythm Normal ECG When compared with ECG of 31-OCT-2021 14:26, No significant change was found Referred By: Generic ED Physician Electronically Signed By:Paul Cordova
[2021-12-03 16:44] LABS: Hematocrit 41.5 % (37.0-47.0); Hemoglobin 14.1 g/dl (12.0-16.0); Mean Corpuscular Hemoglobin 29.7 pg (27.0-33.0); Mean Corpuscular Volume 87.4 fL (80.0-98.0); Mean Platelet Volume 10.9 fL (9.4-12.3); Platelet Count 236 X10*3/uL (160-400); Red Blood Count 4.75 X10*6/uL (4.20-5.50); Red Cell Distribution Width 12.8 % (11.0-16.0); White Blood Count 8.2 X10*3/uL (4.8-10.8)
[2021-12-03 17:02] LABS: Anion Gap 12 (12-20); Blood Urea Nitrogen 14 mg/dL (9-16); Carbon Dioxide 26 mmol/L (22-29); Chloride 105 mmol/L (96-108); Creatinine Clr Calc Pharmacy 116.7; Estimated Glomerular Filt Rate > 60; Glucose Random 82 mg/dL (60-115); Potassium 4.1 mmol/L (3.3-5.1); Sodium 139 mmol/L (135-145)
--- NOTE | 2021-12-03 19:36 | PC.NURSE ---
Took report from Damon to assume care of Pt, Pt resting, calllight in reach, this RN continues to monitor.
[2021-12-03 20:00] VITALS: BP 121/64; PULSE 66; RESP 14
--- NOTE | 2021-12-03 20:18 | ED_ITS ---
HPI - General Adult General Chief complaint: General Medical Stated complaint: infection on buttocks Time Seen by Provider: 12/03/21 20:05 Source: patient Mode of arrival: ambulatory Limitations: no limitations History of Present Illness HPI narrative: Patient comes to the emergency room complaining of slight discharge coming from her incision from a perianal abscess, and nausea. Patient states that about a month ago she had a perirectal incision and drainage. Patient states that she has been healing well since her last visit with Dr. Carranza approximately 1 month ago. Today, she noticed a few drops of drainage and became very concerned, became nauseous. At this time, patient is not nauseous anymore. Patient denies fever chills Related Data Home Medications Medication Instructions Recorded Confirmed fluoxetine 10 mg capsule 1 cap PO DAILY 10/27/21 11/04/21 levothyroxine 137 mcg tablet 137 mcg PO MOTUWETHFRSA@0630 10/27/21 11/04/21 loratadine 10 mg tablet (Claritin) 10 mg PO DAILY 10/28/21 11/04/21 Previous Rx's Medication Instructions Recorded amoxicillin 875 mg-potassium 1 tab PO BID #20 tabs 10/28/21 clavulanate 125 mg tablet docusate sodium 100 mg capsule 100 mg PO BID PRN constipation #60 10/28/21 (Colace) caps oxycodone-acetaminophen 5 mg-325 1 tab PO Q6H PRN pain (scale score 10/30/21 mg tablet (Endocet) 7-10) #14 tabs ondansetron 4 mg disintegrating 4 mg PO TID 4 days #12 tabs 10/31/21 tablet Allergies Allergy/AdvReac Type Severity Reaction Status Date / Time adhesive tape [ADHESIVE TAPE] Allergy Intermediate RASH Verified 03/04/21 10:16 adhesive Allergy Unknown rash Uncoded 09/19/18 00:00 Review of Systems Review of Systems: Constitutional : No Weight loss, No Fever, No Chills, No Night Sweats, No Fatigue, No Malaise ENT/Mouth : No Hearing loss, No Ear Pain, No Nasal Congestion, No Sinus Pain, No Hoarseness, No sore throat, No Rhinorrhea, No Swallowing Difficulty Eyes: No Eye Pain, No Swelling, No Redness, No Foreign Body, No Discharge, No Vision Changes Cardiovascular : No Chest Pain, No SOB, No Dyspnea on Exertion, No Orthopnea, No Edema, No Palpitations Respiratory : No Cough, No Sputum, No Wheezing, No Smoke Exposure, No Dyspnea Gastrointestinal : No Nausea, No Vomiting, No Diarrhea, No Constipation, No abdominal Pain, No Hematochezia, No Melena, complaining of mild drainage from perirectal in the Genitourinary : no irregular bleeding, No Dysuria, No Urinary Frequency, No Hematuria, No Urinary Incontinence, No Urgency, No Flank Pain, No Urinary Flow Changes, No Hesitancy Musculoskeletal : No joint pain, No Myalgias, No Joint Swelling Skin : No Skin Lesions, No rash Neuro : No Weakness, No Numbness, No Paresthesias, No Loss of Consciousness, No Dizziness, No Headache Psych : No Anxiety/Panic, No Depression, No SI/HI/AH/VH, No Social Issues, Heme/Lymph: No Bruising, No Bleeding,No Lymphadenopathy Endocrine : No Polyuria, No Polydipsia, No Temperature Intolerance [facility] Past Medical History Medical History Depression Hypothyroidism Smoker Surgical History History of bilateral oophorectomy Family History Family History Paternal Aunt Breast CA Paternal Aunt Breast CA Social History Social History Household Members: Family and Children Housing: House Patient Tobacco Use Status: Current everyday Tobacco user Tobacco use type: Cigarette Cigarettes Per Day: 12 Second Hand Smoke Exposure: No Substance Use Type: Marijuana Advance Directives: No Advance Directives Information Provided: No service: No Current occupational status: employed Current occupation: [employer] Physical Exam ED Vital Signs: Vital Signs - 24 hr 12/03/21 16:18 Temperature 98.4 F Pulse Rate 64 Respiratory Rate 16 Blood Pressure 132/85 Pulse Oximetry 99 Oxygen Delivery Method Room Air BMI result Body Mass Index 33.5 Const Other: Appearance: Alert. Oriented X3. No acute distress. Eyes: Pupils equal, round and reactive to light. ENT: Pharynx normal. Neck: Normal inspection. Neck supple. No lymph nodes noted. No crepitus CVS: Normal heart rate and rhythm. Pulses normal. Normal S1 and S2 Respiratory: No respiratory distress. Breath sounds normal. No Wheezing. No rales Abdomen: Soft and nontender. No rigidity. No distention. Skin: Skin warm and dry. Normal skin color. Normal skin turgor. Patient has a small perirectal plaque, at erythematous, less than 0.5 cm, 1 pinpoint dot with very scant amount of blood, no pus, no surrounding cellulitis, no surrounding pain on palpation Extremities: No lower extremity edema. No Lacerations. No Rash Neuro: Oriented X 3. No motor deficit. No sensory deficit. Moving all extremities. No slurred speech. CN 2 through 12 grossly intact Psych: calm, cooperative, normal affect Course Course Course Narrative: At this time, cellulitis not suspected. White blood cell count within normal limits. No fever chills. Sepsis not suspected, no signs of cellulitis. Patient has an appointment with Dr. Carranza in 2 days Medical Decision Making Lab Data Result diagrams: 12/03/21 16:34 12/03/21 16:34 Labs: Lab Results 12/03/21 12/03/21 Range/Units 16:34 16:34 WBC 8.2 (4.8-10.8) X10*3/uL RBC 4.75 D (4.20-5.50) X10*6/uL Hgb 14.1 D (12.0-16.0) g/dl Hct 41.5 D (37.0-47.0) % MCV 87.4 (80.0-98.0) fL MCH 29.7 (27.0-33.0) pg MCHC 34.0 (31.0-35.0) g/dl RDW 12.8 (11.0-16.0) % Plt Count 236 (160-400) X10*3/uL MPV 10.9 (9.4-12.3) fL Absolute Nucleated RBC 0.000 (0.0-0.012) X10*3/uL Nucleated RBC % (auto) 0.0 (0.0-0.2) /100WBC Sodium 139 (135-145) mmol/L Potassium 4.1 (3.3-5.1) mmol/L Chloride 105 (96-108) mmol/L Carbon Dioxide 26 (22-29) mmol/L Anion Gap 12 (12-20) BUN 14 (9-16) mg/dL Creatinine 0.73 (0.5-1.4) mg/dL Estim Creat Clear Calc 116.7 Estimated GFR > 60 Random Glucose 82 (60-115) mg/dL Calcium 9.0 (8.4-10.2) mg/dL Discharge Plan Discharge Clinical Impression: Perianal pain Patient Disposition: Home, Self-Care Instructions: Warm Compress or Soak (ED) Additional Instructions: Please follow-up with your primary care physician tomorrow. If you have any worsening or new symptoms, please return to the emergency room or call 911 Prescriptions: No Action levothyroxine 137 mcg tablet 137 mcg PO MOTUWETHFRSA@0630 fluoxetine 10 mg capsule 1 cap PO DAILY loratadine [Claritin] 10 mg Tablet 10 mg PO DAILY amoxicillin-pot clavulanate 875-125 mg tablet 1 tab PO BID Qty: 20 0RF docusate sodium [Colace] 100 mg capsule 100 mg PO BID PRN (Reason: constipation) Qty: 60 0RF oxycodone-acetaminophen [Endocet] 5-325 mg tablet 1 tab PO Q6H PRN (Reason: pain (scale score 7-10)) Qty: 14 0RF ondansetron 4 mg tablet,disintegrating 4 mg PO TID 4 Days Qty: 12 0RF
== END 2021-12-03 20:36 | disposition home or self-care (01) ==
PROVIDERS: Emergency Provider Emergency Medicine; PCP Internal Medicine
DX: K61.2 Anorectal abscess (principal); K62.89 Other specified diseases of anus and rectum; R00.2 Palpitations; F17.210 Nicotine dependence, cigarettes, uncomplicated; Z71.6 Tobacco abuse counseling; F12.90 Cannabis use, unspecified, uncomplicated; Z79.899 Other long term (current) drug therapy
CPT/HCPCS: 36415; 80048; 85027; 93005; 99284

== ENCOUNTER → 2021-12-06 09:43 | Outpatient (BNVA) | payer OTHER, SELFPAY | PROVIDERS: PCP Internal Medicine; Visit Provider Surgery | DX: K61.1 Rectal abscess (principal); Z98.890 Other specified postprocedural states | CPT/HCPCS: 99212 ==

== ENCOUNTER → 2021-12-30 10:26 | Outpatient (BNVA) | payer OTHER, SELFPAY | PROVIDERS: PCP Internal Medicine; Referring Provider Internal Medicine; Visit Provider Surgery | DX: K61.1 Rectal abscess (principal); Z98.890 Other specified postprocedural states | CPT/HCPCS: 99212 ==

== ENCOUNTER → 2022-01-24 09:46 | Outpatient (BNVA) | payer OTHER, SELFPAY | PROVIDERS: PCP Internal Medicine; Referring Provider Internal Medicine; Visit Provider Surgery | DX: K61.1 Rectal abscess (principal) | CPT/HCPCS: 99212 ==

== ENCOUNTER → 2022-01-26 09:00 | Outpatient (BNVA) | payer OTHER, SELFPAY | PROVIDERS: PCP Internal Medicine; Visit Provider Surgery | DX: K61.1 Rectal abscess (principal) | CPT/HCPCS: 99212 ==

== ENCOUNTER 2022-02-10 13:09 | Emergency (ER) | payer OTHER, SELFPAY ==
[2022-02-10 13:43] VITALS: BP 124/78; PULSE 65; RESP 16; TEMP 36.7; O2SAT 98; BMI 32.9
[2022-02-10 14:15] LABS: MANUAL DIFF FLAG NO
[2022-02-10 14:16] LABS: Basophils Percent Auto 0.1 % (0-2); Eosinophils Absolute Auto 0.1 X10*3/uL (0.0-0.4); Eosinophils Percent Auto 1.5 % (0-4); Hematocrit 44.5 % (37.0-47.0); Hemoglobin 15.4 g/dl (12.0-16.0); Imm Gran Abs Auto 0.02 X10*3/uL (0.00-0.03); Imm Gran Pct Auto 0.2 % (0.0-0.4); Lymphocytes Absolute Auto 2.2 X10*3/uL (1.2-4.9); Lymphocytes Percent Auto 27.5 % (20-40); Mean Corpuscular HGB Conc 34.6 g/dl (31.0-35.0); Mean Corpuscular Volume 86.7 fL (80.0-98.0); Mean Platelet Volume 10.5 fL (9.4-12.3); Monocytes Absolute Auto 0.6 X10*3/uL (0.1-1.2); Monocytes Percent Auto 7.3 % (2-11); Neutrophils Absolute Auto 5.1 x10*3/uL (2.0-8.3); Neutrophils Percent Auto 63.4 % (45-73); Platelet Count 245 X10*3/uL (160-400); Red Blood Count 5.13 X10*6/uL (4.20-5.50); Red Cell Distribution Width 12.7 % (11.0-16.0); White Blood Count 8.1 X10*3/uL (4.8-10.8)
[2022-02-10 14:33] LABS: Alanine Aminotransferase 44 U/L (0-31); Albumin Level 4.3 g/dL (3.5-5.0); Alkaline Phosphatase 33 U/L (39-117); Anion Gap 14 (12-20); Aspartate Amino Transferase 24 U/L (5-31); Bilirubin Total 0.3 mg/dL (0.0-1.0); Blood Urea Nitrogen 10 mg/dL (9-16); Calcium 9.1 mg/dL (8.4-10.2); Carbon Dioxide 25 mmol/L (22-29); Chloride 105 mmol/L (96-108); Creatinine Clr Calc Pharmacy 121.1; Estimated Glomerular Filt Rate > 60; Glucose Random 86 mg/dL (60-115); Potassium 3.8 mmol/L (3.3-5.1); Sodium 140 mmol/L (135-145); Total Protein 7.2 g/dL (6.5-8.0)
== END 2022-02-10 17:35 | disposition left against medical advice (07) ==
PROVIDERS: Emergency Provider Emergency Medicine; PCP Internal Medicine
DX: R11.0 Nausea (principal); F17.210 Nicotine dependence, cigarettes, uncomplicated; Z71.6 Tobacco abuse counseling; Z79.899 Other long term (current) drug therapy
CPT/HCPCS: 36415; 80053; 85025; 99281; 99283

== ENCOUNTER → 2022-02-14 08:58 | Outpatient (BNVA) | payer OTHER, SELFPAY | PROVIDERS: PCP Internal Medicine; Visit Provider Surgery | DX: K61.1 Rectal abscess (principal) | CPT/HCPCS: 99212 ==

== ENCOUNTER → 2022-03-07 09:30 | Outpatient (BNVA) | payer OTHER, SELFPAY | PROVIDERS: PCP Internal Medicine; Visit Provider Surgery | DX: K61.1 Rectal abscess (principal); K60.3 Anal fistula | CPT/HCPCS: 99212 ==

== ENCOUNTER 2022-04-03 06:04 | Day surgery (SDC) | payer OTHER, SELFPAY ==
[2022-03-28 14:25] VITALS: BMI 32.9
--- NOTE | 2022-03-31 10:28 | P.CONAN_ITS ---
HPI - Anesthesia Eval Consult details Narrative: 41yo F for Excision Rectal Fistula PMFSH Active Problems Active Problems: All Active Problems (Updated 03/08/22 @ 10:56 by Gerald Carranza MD) Internal derangement of right knee (Acute) Pes anserine bursitis (Acute) Abscess, perirectal (Acute) Anal fistula (Acute) Past Medical History Medical History Depression Hypothyroidism Smoker Family History Family History Paternal Aunt Breast CA Paternal Aunt Breast CA Family history of problems with anesthesia: No Surgical History Surgical History (Updated 03/28/22 @ 14:17 by Aisha Palencia RN) History of bilateral oophorectomy History of incision and drainage History of surgery on right wrist Hx of tonsillectomy Status post de Quervain's release surgery History of Problems with Anesthesia: No Social History Social History Household Members: Family and Children Housing: House Patient Tobacco Use Status: Current everyday Tobacco user Tobacco use type: Cigarette Cigarettes Per Day: 10.0 Second Hand Smoke Exposure: No Substance Use Type: Marijuana service: No Current occupational status: employed Current occupation: [employer] Allergies Allergy/AdvReac Type Severity Reaction Status Date / Time adhesive tape [ADHESIVE TAPE] Allergy Intermediate RASH Verified 03/28/22 14:13 adhesive Allergy Unknown rash Uncoded 03/28/22 14:13 Home Medications Medication Instructions Recorded Confirmed Last Taken Type fluoxetine 10 mg capsule 1 cap PO DAILY 10/27/21 03/28/22 Unknown History levothyroxine 137 mcg tablet 137 mcg PO MOTUWETHFRSA@0630 10/27/21 03/28/22 Unknown History loratadine 10 mg tablet (Claritin) 10 mg PO DAILY 10/28/21 03/28/22 Unknown History Exam Exam Date and Time: March 31, 2022 1028 Height,Weight and Vital Signs: Height 5 ft 5 in Weight 89.721 kg Pertinent Lab Results Pertinent Lab Results: Laboratory Tests 02/10/22 02/10/22 14:10 14:10 WBC 8.1 Hgb 15.4 Hct 44.5 Plt Count 245 Sodium 140 Potassium 3.8 Chloride 105 Carbon Dioxide 25 BUN 10 Creatinine 0.69 Narrative Narrative: EKG 11/2021 Vent. Rate : 060 BPM ? ? Atrial Rate : 060 BPM ?? P-R Int : 126 ms? QRS Dur : 088 ms ? ? QT Int : 422 ms ? ? ? P-R-T Axes : 062 073 047 degrees ?? QTc Int : 422 ms ? Normal sinus rhythm Normal ECG When compared with ECG of 31-OCT-2021 14:26, No significant change was found Assessment and Plan Assessment Anesthesia Assessment: Chart Reviewed Final Anesthetic Review Family History of Problems with Anesthesia: No History of Problems with Anesthesia: No
[2022-04-03] VITALS (7 sets, daily range): BP systolic 101–118; BP diastolic 46–87; PULSE 59–94; RESP 16–22; TEMP 36.2–36.7; O2SAT 95–100
[2022-04-03] MEDS: Lactated Ringers 1,000 ML 100 ML IVCONT (06:40)
--- NOTE | 2022-04-03 07:41 | HO.ANESPROP2 ---
[facility] Active Problems Active Problems: All Active Problems (Updated 03/08/22 @ 10:56 by Gerald Carranza MD) Internal derangement of right knee (Acute) Pes anserine bursitis (Acute) Abscess, perirectal (Acute) Anal fistula (Acute) Past Medical History Medical History Depression Hypothyroidism Smoker Family History Family History Paternal Aunt Breast CA Paternal Aunt Breast CA Family history of problems with anesthesia: No Surgical History Surgical History (Updated 03/28/22 @ 14:17 by Aisha Palencia RN) History of bilateral oophorectomy History of incision and drainage History of surgery on right wrist Hx of tonsillectomy Status post de Quervain's release surgery History of Problems with Anesthesia: No Social History Social History Household Members: Family and Children Housing: House Patient Tobacco Use Status: Current everyday Tobacco user Tobacco use type: Cigarette Cigarettes Per Day: 10.0 Second Hand Smoke Exposure: No Use of substances other than those prescribed or required for medical reasons: No Substance Use Type: Marijuana Are you DNR?: No Advance Directives: No Advance Directives Information Provided: Yes Advance Directives on File: No service: No Current occupational status: employed Current occupation: [employer] Allergies Allergy/AdvReac Type Severity Reaction Status Date / Time adhesive tape [ADHESIVE TAPE] Allergy Intermediate RASH Verified 03/28/22 14:13 adhesive Allergy Unknown rash Uncoded 03/28/22 14:13 Active Medications: Current Medications Albuterol Sulfate (Albuterol Sulfate (0.083%) 2.5 Mg/3 Ml Vial.Neb) 2.5 mg INHALE ONCE PRN PRN Reason: Shortness of Breath/Wheezing Lactated Ringer's (Lr) 1,000 mls @ 100 mls/hr IVCONT .Q10H SHAD Last Admin: 04/03/22 06:40 Dose: 100 mls/hr Home Medications Medication Instructions Recorded Confirmed Last Taken Type fluoxetine 10 mg capsule 1 cap PO DAILY 10/27/21 03/28/22 Unknown History levothyroxine 137 mcg tablet 137 mcg PO MOTUWETHFRSA@0630 10/27/21 03/28/22 Unknown History loratadine 10 mg tablet (Claritin) 10 mg PO DAILY 10/28/21 03/28/22 Unknown History Exam Exam Date and Time: April 03, 2022 0741 Height,Weight and Vital Signs: Height 5 ft 5 in Weight 89.721 kg Last Vital Signs Temp 97.1 F 04/03/22 06:26 Pulse 59 04/03/22 06:26 Resp 16 04/03/22 06:26 BP 101/61 04/03/22 06:26 Pulse Ox 95 04/03/22 06:26 O2 Del Method 04/03/22 06:26 Airway Mallampati Class: II TM Dist: >3cm Neck ROM: Full Loose/Missing/Broken Teeth: No Heart: rrr Lungs: clear Assessment and Plan Final Anesthetic Review Family History of Problems with Anesthesia: No History of Problems with Anesthesia: No ASA Class: II Final Preanesthetic Review: No Changes in Pt Med Stat, Meds/Allgs Chart Reviewed, Consent Obtained/Reviewed and Anes Risks/Benef Reviewed Patient Risk: Intermediate Procedure Risk: Low Anesthetic Plan Anesthetic Plan: GA Disposition: Standard PACU
--- NOTE | 2022-04-03 09:08 | W.PM.OPN ---
Operative Note Operative Note Date of Service: 04/03/22 Narrative: Preoperative diagnosis: anal fistula Postoperative diagnosis: same Procedure: anal fistulotomy Surgeon: Gerald Carranza MD Fishing Reel Assembler: ESTEBAN Feliciano Anesthesia: general endotracheal Indications for procedure: 41-year-old female patient with a previous history of a perirectal abscess now with persistent drainage recurring infections suggestive of a anal fistula Operative findings:. Deep perianal abscess with no fistula identified. Abscess cavity debrided Specimen: external anal tag Estimated blood loss: 5 mL Complications: none Procedure details: patient brought to the OR placed in a supine position. After administering general anesthesia patient was placed in a prone position. Perianal skin was prepped with Betadine and draped in a sterile fashion. A surgical time-out was called the consent confirmed. Patient received preoperative antibiotics and Venodyne boots were in place. Local anesthesia consisting of 0.5% bupivacaine was infiltrated around the fistula. At a probe was then inserted into the fistula. Reports the midline anteriorly. No internal opening could be identified however the tract was then opened with a scalpel and carried down to subcutaneous tissue down to the probe. Abscess cavity was identified again probing revealed no internal opening thatcommunicated with the fistula. A curette was used to debride the granulation tissue and anal derm skin surrounding the cavity. Hemostasis was assured using electrocautery. A small portion of the external sphincter was divided to allow better drainage. After assuring adequate hemostasis the wound was packed with quarter-inch iodoform gauze and covered with an ABD pad. The patient was returned to a supine position and woken from anesthesia. She was subsequently transferred to PACU in stable condition. The patient tolerated the procedure well. Sponge, instrument, and needle counts reported as correct. Patient was transferred to PACU in stable condition.
--- NOTE | 2022-04-03 09:14 | MHC.SHP ---
Pre-Procedural Eval Section A Date of Service: 04/03/22 The patient is an INPATIENT: No Changes since office visit: Yes Patient answered all questions; No Cold of Flu in the past 2 weeks, No New Medical Problems and No Changes in Medication The History & Physical has been completed within 30 days and I have reviewed it.: Yes Section B Chief Complaint: Anal fistula,Rectal abscess Allergies: Allergies Allergy/AdvReac Type Severity Reaction Status Date / Time adhesive tape [ADHESIVE TAPE] Allergy Intermediate RASH Verified 03/28/22 14:13 adhesive Allergy Unknown rash Uncoded 03/28/22 14:13 Plan Diagnosis/Plan: Unchanged I have reviewed the history and physical and performed a pertinent physical examination on my patient. No changes have occurred unless specified.
== END 2022-04-03 11:10 | disposition home or self-care (01) ==
PROVIDERS: PCP Internal Medicine; Visit Provider Surgery
PROC: (CPT 46270; principal; 2022-04-03 08:30)
DX: K61.1 Rectal abscess (principal); K64.4 Residual hemorrhoidal skin tags; E03.9 Hypothyroidism, unspecified; F32.A Depression, unspecified; Z79.899 Other long term (current) drug therapy; F17.210 Nicotine dependence, cigarettes, uncomplicated
CPT/HCPCS: 46270; 88304; J0330; J1100; J2250; J2405; J2795; J3010

== ENCOUNTER → 2022-05-23 11:19 | Outpatient (BNVA) | payer OTHER, SELFPAY | PROVIDERS: PCP Internal Medicine; Visit Provider Surgery | DX: K61.1 Rectal abscess (principal) | CPT/HCPCS: 99212 ==

== ENCOUNTER 2022-05-26 07:58 | Outpatient (REF) | payer OTHER, SELFPAY ==
--- NOTE | ~2022-05-26 | CT_ITS ---
EXAMINATION: CT abdomen pelvis w IV con CLINICAL INFORMATION: Reason for Exam K61.1 - Rectal abscess COMPARISON: No prior CT available for comparison. TECHNIQUE: Multidetector volumetric imaging was performed from the superior aspect of the liver through the pubic symphysis 100 mL of Omnipaque 350 injected Sagittal and coronal reformatted images were obtained on the technologist's workstation. This CT examination was performed using dose optimization techniques as appropriate, variously including the following: *Automated exposure control *Adjustment of mA and/or kV according to patient size (this includes techniques or standardized protocols for targeted exams where dose is matched to indication/reason for exam; i.e. extremities or head) *Use of iterative reconstruction technique DLP: 525 mGy-cm FINDINGS: LOWER THORAX: Included lung bases are clear. HEPATOBILIARY: No focal hepatic lesions. No biliary ductal dilatation. GALLBLADDER: Gallbladder unremarkable. SPLEEN: Spleen is normal in size. Rounded structures adjacent to the spleen likely splenules these have not changed. PANCREAS: No focal mass or ductal dilatation. STOMACH AND GASTROINTESTINAL TRACT: Stomach is grossly unremarkable. There is no bowel distention or thickening. No CT evidence of appendicitis. ADRENALS: No adrenal nodules. KIDNEYS/URETERS: No hydronephrosis, stones or solid mass lesions. URINARY BLADDER: Urinary bladder is decompressed unopacified. PELVIC VISCERA: There is fluid-filled cystic structure in the right side of the pelvis abutting the right adnexa 4.2 x 3.3 cm, most likely of right ovarian origin i.e. right ovarian cyst, this has not changed from prior exam. PERITONEUM: No free air or fluid. LYMPH NODES: No lymphadenopathy. VASCULAR:Abdominal aorta normal in size, no aneurysm found. BONES, ABDOMINAL WALL AND SOFT TISSUES: Previously described perirectal perianal fluid collection, completely resolved. The fat around the rectum and perianal canal now are clear. No evidence of residual abscess. CT/CT abdomen pelvis w IV con IMPRESSION: * Previously described perirectal / perianal fluid collection has completely resolved. No evidence of residual abscess. * Stable fluid-filled cystic structure in the right side of the pelvis abutting the right ovaries/adnexa 4.2 cm, most likely of right ovarian origin I.e. Right ovarian cyst, this has not changed from prior exam. Recommend correlation with follow-up pelvic ultrasound in 6 months.
[2022-05-26] MEDS: iohexoL 350 MG/ML 100 ML INFUS..BTL IV (09:03)
== END 2022-05-26 07:59 | disposition home or self-care (01) ==
LOC: HO.CT 07:58
PROVIDERS: PCP Internal Medicine; Visit Provider Surgery
DX: K61.1 Rectal abscess (principal)
CPT/HCPCS: 74177; Q9967

== ENCOUNTER → 2022-06-01 09:29 | Outpatient (BNVA) | payer OTHER, SELFPAY | PROVIDERS: PCP Internal Medicine; Visit Provider Surgery | DX: Z48.815 Encounter for surgical aftercare following surgery on the digestive system (principal); K61.1 Rectal abscess | CPT/HCPCS: 99212 ==

== ENCOUNTER 2022-06-30 09:18 | Outpatient (REF) | payer OTHER, SELFPAY ==
--- NOTE | ~2022-06-30 | XR_ITS ---
EXAMINATION: XR HAND, RIGHT CLINICAL INFORMATION: Pain. COMPARISON: Prior radiographs, most recently 12/27/2015. TECHNIQUE: PA, lateral, and oblique views of the right hand. FINDINGS: The bones and soft tissues are normal. No fracture. Alignment is anatomic. Joint spaces are maintained. No erosions or soft tissue calcifications. A fixator plate and fixator screws applied to the distal right ulna are partially included in the [id number]. XR/XR hand RT min 3V IMPRESSION: Normal right hand.
== END 2022-06-30 09:19 | disposition home or self-care (01) ==
LOC: HO.HOSX 09:18
PROVIDERS: Visit Provider Physician Assistant
DX: M65.4 Radial styloid tenosynovitis [de Quervain] (principal); G56.01 Carpal tunnel syndrome, right upper limb
CPT/HCPCS: 73130; 99202

== ENCOUNTER → 2022-07-04 10:15 | Outpatient (BNVA) | payer OTHER, SELFPAY | PROVIDERS: PCP Internal Medicine; Referring Provider Internal Medicine; Visit Provider Surgery | DX: Z13.89 Encounter for screening for other disorder (principal) ==

== ENCOUNTER → 2022-07-06 11:01 | Outpatient (BNVA) | payer OTHER, SELFPAY | PROVIDERS: PCP Internal Medicine; Visit Provider Surgery | DX: K61.1 Rectal abscess (principal) | CPT/HCPCS: 46600; 99212 ==

== ENCOUNTER 2022-07-11 15:53 | Outpatient (REF) | payer OTHER, SELFPAY ==
--- NOTE | ~2022-07-11 | MR_ITS ---
EXAMINATION: MR PELVIS WITHOUT AND WITH CONTRAST CLINICAL INFORMATION: Rectal abscess. COMPARISON: CT abdomen/pelvis 05/26/2022. TECHNIQUE: Multiple routine MRI sequences through the pelvis were obtained on a high-field 1.5 Meenu MRI before and after the uneventful administration of 9 mL Gadavist gadolinium-based IV contrast. FINDINGS: Mild asymmetric increased T2 signal and hyperenhancement in the anal verge and adjacent intergluteal fat on the right side (images 65 through 68, series 11). No evidence of perianal fistula, collection or abscess. The uterus is anteverted measuring 8 x 4.6 x 4.5 cm (cervix to fundus, anteroposterior and transversely). Questionable arcuate uterine morphology with thickening of the fundus (axial image 7, series 5). The junctional zone is indistinct and thickened. No focal uterine lesions are noted. The endometrium measures 0.6 cm in thickness without discrete focal abnormality. Multiple nabothian cysts noted in the cervix, which is otherwise unremarkable. Normal appearance of the vagina. Lobulated homogeneously precontrast T1 bright mass in the right ovary measuring 3.9 x 3.4 cm with T2 shading. Well-defined 1.4 x 1.1 cm cyst in the left ovary with thickened ruiz (11:15), favored to represent a corpus luteal cyst. Multiple small functional follicles are noted in the ovaries. Thickening of the right-sided uterosacral ligaments (images 8 through 12, series 7). Normal appearance of the urinary bladder. No free fluid. No pelvic lymphadenopathy. No acute or aggressive-appearing osseous abnormalities. MR/MR pelvis wo/w con IMPRESSION: 1. Mild asymmetric increased T2 signal and hyperenhancement in the anal verge and adjacent intergluteal fat on the right side, correlate with physical examination for evidence of cellulitis. 2. No perianal fistula, collection or abscess. 3. Thickened and indistinct junctional zone suggesting the presence of adenomyosis. 4. There is a 3.9 cm homogeneously T1 bright mass in the right ovary with T2 shading, favoring to represent an endometrioma. This is incompletely characterized on postcontrast images in the absence of subtracted images. This is not significantly changed in size compared to CT from 10/31/2021. If not surgically removed, yearly follow-up pelvic ultrasound is recommended to reassess. 5. Asymmetric T2 dark scarring in the posterior compartment on the right side involving the uterosacral ligaments which could be related with deep pelvic endometriosis, correlate clinically.
== END 2022-07-11 15:54 | disposition home or self-care (01) ==
LOC: HO.MRI 15:53
PROVIDERS: Visit Provider Surgery
DX: K61.1 Rectal abscess (principal)
CPT/HCPCS: 72197

== ENCOUNTER → 2022-07-20 10:41 | Outpatient (BNVA) | payer OTHER, SELFPAY | PROVIDERS: PCP Internal Medicine; Visit Provider Surgery | DX: K61.1 Rectal abscess (principal) | CPT/HCPCS: 99212 ==

== ENCOUNTER 2022-08-29 06:54 | Day surgery (SDC) | payer OTHER, SELFPAY ==
[2022-08-24 11:02] VITALS: BMI 32.1
--- NOTE | 2022-08-28 12:42 | P.CONAN_ITS ---
Documented by User: Luz Qureshi NP 08/28/22 12:43 HPI - Anesthesia Eval Consult details Narrative: 41yo F for Exam Under Anesthesia,possible fistulotomy,possible seton s/p rectal fistuls 03/2022 with GA-ETT 7.5 PMFSH Active Problems Active Problems: All Active Problems (Updated 06/30/22 @ 15:31 by Anastasia Barlow PA-C) Internal derangement of right knee (Acute) Pes anserine bursitis (Acute) Abscess, perirectal (Acute) Anal fistula (Acute) De Quervain's tenosynovitis, right (Acute) Carpal tunnel syndrome of right wrist (Acute) Past Medical History Medical History Depression Hypothyroidism Smoker Family History Family History Paternal Aunt Breast CA Paternal Aunt Breast CA Family history of problems with anesthesia: No Surgical History Surgical History (Updated 08/24/22 @ 10:39 by Aisha Palencia RN) History of anal fissures History of bilateral oophorectomy History of incision and drainage History of surgery on right wrist Hx of tonsillectomy Status post de Quervain's release surgery History of Problems with Anesthesia: No Social History Social History Household Members: Family and Children Housing: House Patient Tobacco Use Status: Current everyday Tobacco user Tobacco use type: Cigarette Cigarettes Per Day: 10.0 Second Hand Smoke Exposure: No Use of substances other than those prescribed or required for medical reasons: No Substance Use Type: Marijuana Are you DNR?: No Advance Directives: No Advance Directives Information Provided: Yes Advance Directives on File: No service: No Current occupational status: employed 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 Meds Allergies Allergy/AdvReac Type Severity Reaction Status Date / Time adhesive tape [ADHESIVE TAPE] Allergy Intermediate RASH Verified 08/24/22 10:42 adhesive Allergy Unknown rash Uncoded 08/24/22 10:42 cortisone injection Allergy Swelling Uncoded 08/24/22 10:42 Home Medications Medication Instructions Recorded Confirmed Last Taken Type fluoxetine 10 mg capsule 1 cap PO DAILY 10/27/21 08/29/22 Unknown History levothyroxine 137 mcg tablet 137 mcg PO MOTUWETHFRSA@0630 10/27/21 08/29/22 08/29/22 History loratadine 10 mg tablet (Claritin) 10 mg PO DAILY 10/28/21 08/29/22 Unknown History Exam Exam Date and Time: August 28, 2022 1242 Height,Weight and Vital Signs: Height 5 ft 5 in Weight 87.543 kg Assessment and Plan Assessment Anesthesia Assessment: Chart Reviewed Final Anesthetic Review Family History of Problems with Anesthesia: No History of Problems with Anesthesia: No Documented by User: Samuel Gardner MD 08/29/22 08:00 PMFSH Past Medical History Medical History Depression Hypothyroidism Smoker Family History Family History Paternal Aunt Breast CA Paternal Aunt Breast CA Surgical History Surgical History (Updated 08/24/22 @ 10:39 by Aisha Palencia RN) History of anal fissures History of bilateral oophorectomy History of incision and drainage History of surgery on right wrist Hx of tonsillectomy Status post de Quervain's release surgery Social History Social History Household Members: Family and Children Housing: House Patient Tobacco Use Status: Current everyday Tobacco user Tobacco use type: Cigarette Cigarettes Per Day: 10.0 Second Hand Smoke Exposure: No Use of substances other than those prescribed or required for medical reasons: No Substance Use Type: Marijuana Are you DNR?: No Advance Directives: No Advance Directives Information Provided: Yes Advance Directives on File: No service: No Current occupational status: employed 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 Meds Allergies Allergy/AdvReac Type Severity Reaction Status Date / Time adhesive tape [ADHESIVE TAPE] Allergy Intermediate RASH Verified 08/24/22 10:42 adhesive Allergy Unknown rash Uncoded 08/24/22 10:42 cortisone injection Allergy Swelling Uncoded 08/24/22 10:42 Home Medications Medication Instructions Recorded Confirmed Last Taken Type fluoxetine 10 mg capsule 1 cap PO DAILY 10/27/21 08/29/22 Unknown History levothyroxine 137 mcg tablet 137 mcg PO MAUREEN@0630 10/27/21 08/29/22 08/29/22 History loratadine 10 mg tablet (Claritin) 10 mg PO DAILY 10/28/21 08/29/22 Unknown History Exam Airway Mallampati Class: II TM Dist: >3cm Neck ROM: Full Heart: rrr Lungs: cta Assessment and Plan Assessment Anesthesia Assessment: Anesthesia Plan Discussed Final Anesthetic Review NPO: Yes ASA Class: II Final Preanesthetic Review: No Changes in Pt Med Stat, Meds/Allgs Chart Reviewed, Consent Obtained/Reviewed and Anes Risks/Benef Reviewed Patient Risk: Low Procedure Risk: Intermediate Anesthetic Plan Anesthetic Plan: GA Disposition: Standard PACU
[2022-08-29] VITALS (11 sets, daily range): BP systolic 100–120; BP diastolic 51–69; PULSE 58–78; RESP 16–19; TEMP 36.3–36.5; O2SAT 96–98
[2022-08-29] MEDS: Lactated Ringers 1,000 ML 100 ML IVCONT (07:23)
--- NOTE | 2022-08-29 08:11 | MHC.SHP ---
Pre-Procedural Eval Section A Date of Service: 08/29/22 Section B Chief Complaint: Rectal abscess Details of Present Illness: has recurrent swelling, induration on the perianal area, suggestive of a fistula Relevant Social History: None Present Medications: see Short Stay Collaborative assessment Medical History: No relevant PMH History of Previous Operations: Relevant previous surgery/procedure and date(s) ( previous exam under anesthesia, I&D of the perianal area) Allergies: Allergies Allergy/AdvReac Type Severity Reaction Status Date / Time adhesive tape [ADHESIVE TAPE] Allergy Intermediate RASH Verified 08/24/22 10:42 adhesive Allergy Unknown rash Uncoded 08/24/22 10:42 cortisone injection Allergy Swelling Uncoded 08/24/22 10:42 Review of Systems Sugical H&P ROS: Negative: Constitution, Cardiovascular, Respiratory, Neurological, Psychiatric, Hem-Onc, Allergic/Immunologic, Gastrointestinal, Genitourinary, Musculoskeletal, Integumentary, Endocrine and Eyes/Ears/Nose/Throat Exam Surgical H&P Exam: Normal: HEENT, Normal: Heart, Normal: Lungs, Normal: Extremities, Normal: Abdomen, Normal: Skin and Normal: Neurological Plan Diagnosis/Plan: Unchanged I have reviewed the history and physical and performed a pertinent physical examination on my patient. No changes have occurred unless specified. Time Spent With Patient Time: Total time managing care of this patient today ____ minutes.
--- NOTE | 2022-08-29 09:21 | W.PM.OPN ---
Operative Note Operative Note Date of Service: 08/29/22 Narrative: Preop diagnosis: recurrent perianal abscess Postop diagnosis: Anal fistula Procedure: Exam under anesthesia, excisional debridement of recurrent abscess, with placement of seton Surgeon: Dago De Souza MD The patient is a 41 year female with history of recurrent perianal abscess, who had undergone I and D in the OR. She continued to have what she described as persistent induration and occasional drainage on the right perianal area. I therefore schedule her for exam under anesthesia and possible seton placement. She understood the technique of this procedure. She was aware of the risks, benefits, and alternatives She was brought to the operating room. She was placed in prone milli-knife position under general anesthesia via endotracheal tube. The buttocks were retracted with wide tape laterally. The perianal area was prepped and draped in the usual sterile fashion. A surgical time-out was done. The patient received Cefotan 2 g IV preoperatively I infiltrated the perianal area with lidocaine 1%. Examination of the anal orifice revealed an area of induration on the right perianal area a little anteriorly. I inserted the Melissa Curtis retractor and examined the anal canal circumferentially. I could not feel a distinct induration in the anal canal. I attempted to find any sinus in the area of induration. Initially I could not see any sinus. However, I debrided this area of induration using there is and electrocautery and removed some of the overlying skin. By doing so, I was able to see what appeared to be an external opening just 1-2 cm from the anal verge. I injected this with hydrogen peroxide solution using an Angiocath and I could see affluent in the anal canal at the dentate line radial to this. This was consistent with an anal fistula with a short tract. I was able to pass a probe from the external sinus all the way to these internal opening. I passed a yellow vessel loop as a seton in this probed. I looped this around the tract. I tied this loop with a silk 2 0 tie. There were no other areas induration. There was no other lesion in the anal canal Then I infiltrated the perianal area with Marcaine 0.5% for postop analgesia. The procedure was then completed. The patient tolerated procedure well. There were no immediate complications. Initial final counts of sponges and instruments were correct. Estimated blood loss was about 10 cc. The patient was extubated without difficulty and transferred to the recovery room with stable vital signs.
[2022-08-29] MEDS: fentaNYL citrate/PF 100 MCG/2 ML VIAL 25 MCG IVPUSH ×3 (09:50→10:18)
[2022-08-29] MEDS: oxyCODONE HCl Immed Release 5 MG TABLET PO (10:02)
== END 2022-08-29 11:51 | disposition home or self-care (01) ==
PROVIDERS: PCP Internal Medicine; Visit Provider Surgery
PROC: (CPT 46020; principal; 2022-08-29 08:30)
DX: K60.3 Anal fistula (principal); L23.1 Allergic contact dermatitis due to adhesives; F32.A Depression, unspecified; E03.9 Hypothyroidism, unspecified; Z88.8 Allergy status to other drugs, medicaments and biological substances; Z98.890 Other specified postprocedural states; F17.210 Nicotine dependence, cigarettes, uncomplicated
CPT/HCPCS: 46020; J0131; J1100; J1885; J2405; J2795; J3010

== ENCOUNTER → 2022-09-11 12:20 | Outpatient (BNVA) | payer OTHER, SELFPAY | PROVIDERS: PCP Internal Medicine; Visit Provider Surgery ==

== ENCOUNTER → 2022-10-05 14:57 | Outpatient (BNVA) | payer OTHER, SELFPAY | PROVIDERS: PCP Internal Medicine; Visit Provider Surgery ==

== ENCOUNTER → 2022-11-08 15:59 | Outpatient (BNVA) | payer OTHER, SELFPAY | PROVIDERS: PCP Internal Medicine; Visit Provider Surgery ==

== ENCOUNTER → 2022-11-15 12:53 | Outpatient (BNVA) | payer OTHER, SELFPAY | PROVIDERS: PCP Internal Medicine; Visit Provider Surgery | DX: K64.4 Residual hemorrhoidal skin tags (principal) | CPT/HCPCS: 99212 ==

== ENCOUNTER → 2022-12-04 15:38 | Outpatient (BNVA) | payer OTHER, SELFPAY | PROVIDERS: PCP Internal Medicine; Visit Provider Surgery | DX: K60.3 Anal fistula (principal) | CPT/HCPCS: 99212 ==

== ENCOUNTER → 2022-12-08 09:42 | Outpatient (BNVA) | payer OTHER, SELFPAY | PROVIDERS: PCP Internal Medicine; Visit Provider Surgery | DX: K60.3 Anal fistula (principal) | CPT/HCPCS: 99212 ==

== ENCOUNTER 2022-12-11 07:17 | Emergency (ER) | payer OTHER, SELFPAY ==
--- NOTE | ~2022-12-11 | CT_ITS ---
EXAMINATION: CT PELVIS WITH CONTRAST CLINICAL INFORMATION: Perirectal abscess COMPARISON: Previous CT of the abdomen and pelvis May 2022 MR pelvis 2022 TECHNIQUE: Helical scanning was performed with submillimeter collimation through the pelvis with the use of oral contrast and during bolus intravenous injection of 85 mL of Omnipaque 350 intravenous contrast. Sagittal and coronal multiplanar 2-D reconstructions were obtained. This CT examination was performed using dose optimization techniques as appropriate, variously including the following: *Automated exposure control *Adjustment of mA and/or kV according to patient size (this includes techniques or standardized protocols for targeted exams where dose is matched to indication/reason for exam; i.e. extremities or head) *Use of iterative reconstruction technique DLP: 344 mGy-cm FINDINGS: PELVIS: There is soft tissue thickening and small amount of air seen in the perianal region from the 6-8 o'clock axis. No appreciable fluid collection is seen. This extends to the buttock/gluteal fold. Appearance is suggestive of a perianal abscess. This measures maximum 2 x 2 x 3 cm in AP transverse and longitudinal dimension. There is curvilinear high signal in the right perianal region in the 6-8 o'clock axis. This may represent a surgical drain. Clinical correlation recommended. The visualized bowel is normal. There is a 3.6 x 2.8 cm right ovarian cyst. Appears similar to previous exams and thought to represent an endometrioma on MRI. Uterus and adnexa are otherwise unremarkable. The bladder is unremarkable. No ascites or adenopathy. Vascular structures are unremarkable. Small umbilical hernia containing fat. Bony structures are unremarkable. CT/CT pelvis w IV con IMPRESSION: Small right perianal abscess with likely surgical drain in place. This measures 2 x 2 x 3 cm.
[2022-12-11 07:36] VITALS: BP 120/70; PULSE 73; TEMP 36.2; O2SAT 99; BMI 31.6
[2022-12-11 08:07] VITALS: BP 109/69; PULSE 60; RESP 18; TEMP 37.2; O2SAT 97
--- NOTE | 2022-12-11 08:20 | ED.SKABFB ---
HPI - Skin/Abscess/Foreign Bdy General Chief complaint: Skin/Abscess/Foreign Body Stated complaint: Seton? pouring blood? Time Seen by Provider: 12/11/22 08:17 Source: patient Mode of arrival: ambulatory Limitations: no limitations History of Present Illness HPI narrative: 41 year old female with history of multiple rectal abscess', 4 mo s/p fistula repair with seton drain in place, presenting to the ED this morning with rectal bleeding. She last saw Dr. De Souza 3 days ago for possible rectal abscess and started on abx. She reports waking up this morning with blood pouring from her seton drain. She spoke with Dr. Lawrence who advised her to come to the ED for further evaluation. No known history of crohn or UC. Related Data Home Medications Medication Instructions Recorded Confirmed fluoxetine 10 mg capsule 1 cap PO DAILY 10/27/21 12/08/22 levothyroxine 137 mcg tablet 137 mcg PO MOTUWETHFRSA@0630 10/27/21 12/08/22 loratadine 10 mg tablet (Claritin) 10 mg PO DAILY 10/28/21 12/08/22 Previous Rx's Medication Instructions Recorded ondansetron HCl 4 mg tablet 4 mg PO Q8H PRN nausea and 09/01/22 vomiting 5 days #15 tabs menthol 0.44 %-zinc oxide 20.6 % 1 appl topical QID PRN perianal 10/05/22 topical ointment (Calmoseptine) burning #113 grams lidocaine 5 % topical ointment 1 appl topical TID PRN Hemorrhoid 11/15/22 pain #30 grams amoxicillin 875 mg-potassium 1 tab PO BID #14 tabs 12/08/22 clavulanate 125 mg tablet ibuprofen 600 mg tablet 600 mg PO Q6H PRN pain #30 tabs 12/08/22 oxycodone-acetaminophen 5 mg-325 1 tab PO Q4-6H PRN pain #30 tabs 12/08/22 mg tablet (Percocet) Allergies Allergy/AdvReac Type Severity Reaction Status Date / Time adhesive tape [ADHESIVE TAPE] Allergy Intermediate RASH Verified 12/08/22 09:51 adhesive Allergy Unknown rash Uncoded 12/08/22 09:51 cortisone injection Allergy Swelling Uncoded 12/08/22 09:51 Review of Systems Review of Systems: Yes all other systems are reviewed and are negative Neurologic: Denies Sensory deficit (Neuro) [facility] [place] Past Medical History Attestation statement: The following information was validated with the patient. Medical History Depression External hemorrhoids with complication Hypothyroidism Smoker Surgical History History of anal fissures History of bilateral oophorectomy History of incision and drainage History of surgery on right wrist Hx of surgical procedure Hx of tonsillectomy Status post de Quervain's release surgery Family History Family History Paternal Aunt Breast CA Paternal Aunt Breast CA Social History Social History Household Members: Family and Children Housing: House Patient Tobacco Use Status: Current everyday Tobacco user Tobacco use type: Cigarette Cigarettes Per Day: 10.0 Smoked in Last 30 Days: Yes Second Hand Smoke Exposure: No Use of substances other than those prescribed or required for medical reasons: No Substance Use Type: Marijuana Advance Directives: No Advance Directives Information Provided: No service: No Current occupational status: employed 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 Physical Exam Vital Signs: Vital Signs: Last Vital Signs Temp 98.8 F 12/11/22 12:45 Pulse 50 12/11/22 12:45 Resp 18 12/11/22 12:45 BP 98/62 12/11/22 12:45 Pulse Ox 96 12/11/22 12:45 O2 Del Method Room Air 12/11/22 12:45 BMI result Body Mass Index 31.6 Const: General: healthy appearing and no acute distress Nutritional Appearance: average body habitus Orientation/consciousness: oriented to person and patient oriented x3 Limitations: no limitations HEENT: Head: Yes normal to inspection Ears: external ears normal General nose exam: Normal external nose present Mouth: Normal oral and palatal mucosa present and oropharynx normal Throat: Yes posterior oropharynx normal Eyes: General: appearance normal, both eyes and all related structures Neck: Other: supple Neck: Yes normal visual inspection Chest: Chest palpation & inspection: normal inspection of the chest Resp: Auscultation: clear to auscultation bilaterally Cardio: Jugular venous distension: no JVD Rate: regular rate Rhythm: regular rhythm Heart sounds: S1 normal heart sound present and S2 normal heart sound present GI: Other: rectal exam: 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 seton drain sutured in place, no erythema, no puss, with serosanginous drainage Inspection: Yes normal to inspection Palpation (GI): Soft to palpation, nontender and No hepatosplenomegaly present Auscultation: normal bowel sounds : General: Yes no CVA tenderness Back/Spine/Pelvis: Back: no CVA tenderness Skin: General skin exam: no rashes or lesions noted Neuro: General: oriented to person and patient oriented x3 Cranial nerves: Yes CN's II-XII intact bilaterally Motor exam (neuro): 5/5 motor strength present throughout Sensory Exam: No Sensory deficit (Neuro) Extrem: General: Yes normal to inspection Psych: Appearance: grossly normal Course Reevaluation(s) Reevaluation #1: Patient with complicated history including sepsis and multiple rectal abscess' presents with drainage. PE of rectal area appears normal with seton drain in place. CT shows small perirectal abscess with drain going through it. Consulted with Dr. Carranza, will discharge home. Time: 12:53 Medications Administered Discontinued Medications Generic Name Dose Route Start Last Admin Trade Name Freq PRN Reason Stop Dose Admin Iohexol 85 ml 12/11/22 10:38 12/11/22 10:39 Iohexol 350 Mg/Ml 100 Ml Infus..Btl IV 12/11/22 10:39 85 ml ONCE ONE Administration Morphine Sulfate 4 mg 12/11/22 11:17 12/11/22 11:24 Morphine Sulfate 4 Mg/Ml Cartridge IVPUSH 12/11/22 11:18 4 mg ONCE ONE Administration Protocol Medical Decision Making Differential Diagnosis Differential Diagnoses: The differential diagnosis associated with the presentation includes (perirectal abscess, perirectal fistula, rectal cellulitis, colon perforation were all considered. ) Admission/Observation Consideration of admission/observation: Escalation of care including admission/observation considered (Upon arrival, 41 yo with complicated medical problems including sepsis and multiple perirectal abscess', presented with perianal drainage. Admission was considered. ) Consult Healthcare Provider Management of the patient was discussed with: Director Of In Service Education (Dr. Carranza, general surgery) Lab Data MDM Lab Attestation statement: I reviewed the patient's lab results. Non contributory. 12/11/22 08:38 12/11/22 08:38 Labs: Lab Results 12/11/22 12/11/22 Range/Units 08:38 08:38 WBC 9.7 (4.8-10.8) X10*3/uL RBC 4.59 (4.20-5.50) X10*6/uL Hgb 14.1 (12.0-16.0) g/dl Hct 41.2 (37.0-47.0) % MCV 89.8 (80.0-98.0) fL MCH 30.7 (27.0-33.0) pg MCHC 34.2 (31.0-35.0) g/dl RDW 13.0 (11.0-16.0) % Plt Count 211 (160-400) X10*3/uL MPV 11.6 (9.4-12.3) fL Immature Gran % (Auto) 0.4 (0.0-0.4) % Neut % (Auto) 69.9 (45-73) % Lymph % (Auto) 20.1 (20-40) % Reagan % (Auto) 7.6 (2-11) % Eos % (Auto) 1.8 (0-4) % Baso % (Auto) 0.2 (0-2) % Lymph # (Auto) 1.9 (1.2-4.9) X10*3/uL Reagan # (Auto) 0.7 (0.1-1.2) X10*3/uL Eos # (Auto) 0.2 (0.0-0.4) X10*3/uL Baso # (Auto) 0.0 (0.0-0.2) X10*3/uL Abs Immat Gran (auto) 0.04 H (0.00-0.03) X10*3/uL Absolute Neuts (auto) 6.8 (2.0-8.3) x10*3/uL Absolute Nucleated RBC 0.000 (0.0-0.012) X10*3/uL Nucleated RBC % (auto) 0.0 (0.0-0.2) /100WBC Sodium 141 (135-145) mmol/L Potassium 3.8 (3.3-5.1) mmol/L Chloride 107 (96-108) mmol/L Carbon Dioxide 27 (22-29) mmol/L Anion Gap 11 L (12-20) BUN 9 (9-16) mg/dL Creatinine 0.70 (0.5-1.4) mg/dL Estim Creat Clear Calc 117.0 Estimated GFR > 60 Random Glucose 94 (60-115) mg/dL Calcium 9.5 (8.4-10.2) mg/dL Independent Interpretation I performed an independent interpretation of an: CT Scan (No abscess, no free air) Radiology Impression Discussion of test interpretation with radiology: I have reviewed the radiologist's reading. (Question of small abscess ) Chronic Conditions Patient?s care impacted by: Other (multiple perirectal abscess, sepsis) Discharge Plan Discharge Clinical Impression: Anal fistula, Abscess, perirectal Patient Disposition: Home, Self-Care Instructions: Rectal Abscess (ED), Anorectal Abscess and Anal Fistula (ED) Prescriptions: No Action ondansetron HCl 4 mg tablet 4 mg PO Q8H PRN (Reason: nausea and vomiting) 5 Days Qty: 15 0RF levothyroxine 137 mcg tablet 137 mcg PO MOTUWETHFRSA@0630 fluoxetine 10 mg capsule 1 cap PO DAILY loratadine [Claritin] 10 mg Tablet 10 mg PO DAILY menthol-zinc oxide [Calmoseptine] 0.44-20.6 % ointment 1 appl topical QID PRN (Reason: perianal burning) Qty: 113 0RF lidocaine 5 % ointment 1 appl topical TID PRN (Reason: Hemorrhoid pain) Qty: 30 0RF amoxicillin-pot clavulanate 875-125 mg tablet 1 tab PO BID Qty: 14 0RF ibuprofen 600 mg tablet 600 mg PO Q6H PRN (Reason: pain) Qty: 30 0RF oxycodone-acetaminophen [Percocet] 5-325 mg tablet 1 tab PO Q4-6H PRN (Reason: pain) Qty: 30 0RF Rx Instructions: Partial Fill upon patient request. Referrals: Dago De Souza MD [Physician] - 5 days
[2022-12-11 08:44] LABS: MANUAL DIFF FLAG NO
[2022-12-11 08:48] LABS: Basophils Percent Auto 0.2 % (0-2); Eosinophils Absolute Auto 0.2 X10*3/uL (0.0-0.4); Eosinophils Percent Auto 1.8 % (0-4); Hematocrit 41.2 % (37.0-47.0); Hemoglobin 14.1 g/dl (12.0-16.0); Imm Gran Abs Auto 0.04 X10*3/uL (0.00-0.03); Imm Gran Pct Auto 0.4 % (0.0-0.4); Lymphocytes Absolute Auto 1.9 X10*3/uL (1.2-4.9); Lymphocytes Percent Auto 20.1 % (20-40); Mean Corpuscular HGB Conc 34.2 g/dl (31.0-35.0); Mean Corpuscular Hemoglobin 30.7 pg (27.0-33.0); Mean Corpuscular Volume 89.8 fL (80.0-98.0); Mean Platelet Volume 11.6 fL (9.4-12.3); Monocytes Absolute Auto 0.7 X10*3/uL (0.1-1.2); Monocytes Percent Auto 7.6 % (2-11); Neutrophils Absolute Auto 6.8 x10*3/uL (2.0-8.3); Neutrophils Percent Auto 69.9 % (45-73); Platelet Count 211 X10*3/uL (160-400); Red Blood Count 4.59 X10*6/uL (4.20-5.50); White Blood Count 9.7 X10*3/uL (4.8-10.8)
[2022-12-11 09:04] LABS: Anion Gap 11 (12-20); Blood Urea Nitrogen 9 mg/dL (9-16); Calcium 9.5 mg/dL (8.4-10.2); Carbon Dioxide 27 mmol/L (22-29); Chloride 107 mmol/L (96-108); Estimated Glomerular Filt Rate > 60; Glucose Random 94 mg/dL (60-115); Potassium 3.8 mmol/L (3.3-5.1); Sodium 141 mmol/L (135-145)
[2022-12-11] MEDS: iohexoL 350 MG/ML 100 ML INFUS..BTL 85 ML IV (10:39)
[2022-12-11] MEDS: Morphine Sulfate 4 MG/ML CARTRIDGE IVPUSH (11:24)
[2022-12-11 11:26] VITALS: BP 116/76; PULSE 55; RESP 20; O2SAT 96
[2022-12-11 12:45] VITALS: BP 98/62; PULSE 50; RESP 18; TEMP 37.1; O2SAT 96
== END 2022-12-11 13:06 | disposition home or self-care (01) ==
PROVIDERS: Emergency Provider Emergency Medicine; PCP Internal Medicine
DX: K61.1 Rectal abscess (principal); F17.210 Nicotine dependence, cigarettes, uncomplicated; F12.90 Cannabis use, unspecified, uncomplicated
CPT/HCPCS: 36415; 72193; 80048; 85025; 96374; 99284; J2270; Q9967

== ENCOUNTER → 2022-12-21 14:37 | Outpatient (BNVA) | payer OTHER, SELFPAY | PROVIDERS: PCP Internal Medicine; Visit Provider Surgery | DX: K60.3 Anal fistula (principal) | CPT/HCPCS: 99212 ==

== ENCOUNTER 2023-01-01 15:05 | Outpatient (AMB) | payer OTHER, SELFPAY ==
[2023-01-01 15:13] VITALS: BP 120/66; PULSE 75
--- NOTE | 2023-01-01 15:13 | A.OFFVIS_ITS ---
Intake Vital Signs 01/01/23 15:13 Height 5 ft 5 in BP 120/66 Blood Pressure Location Rt brachial Position Sitting Pulse 75 Intake Visit Reasons: 1 mth seton follow up Intake Note: This patient presents for a follow-up assessment for seton. Patient c/o; no changes. Manager Business Information Required: No Accompanied by: Self / Same As Patient Allergies adhesive tape [ADHESIVE TAPE] Allergy (Intermediate, Verified 01/01/23 15:13) RASH adhesive Allergy (Unknown, Uncoded 01/01/23 15:13) rash cortisone injection Allergy (Uncoded 01/01/23 15:13) Swelling Medication List - Last Reconciled 01/01/23 by Dago De Souza MD amoxicillin-pot clavulanate 875-125 mg 1 tab PO BID fluoxetine 1 cap PO DAILY ibuprofen 600 mg PO Q6H PRN levothyroxine 137 mcg PO MOTUWETHFRSA@0630 lidocaine 5% 1 appl topical TID PRN loratadine (Claritin) 10 mg PO DAILY menthol-zinc oxide 0.44-20.6 % (Calmoseptine) 1 appl topical QID PRN ondansetron HCl 4 mg PO Q8H PRN 5 days oxycodone-acetaminophen 5-325 mg (Percocet) 1 tab PO Q4-6H PRN HPI 1 mth seton follow up HPI Details She says she has been doing well. She denies any new complaints. She still has some pain on the fistula site. Seton is in place. She denies any significant drainage. PFSH Medical History Depression External hemorrhoids with complication Hypothyroidism Smoker Surgical History History of anal fissures History of bilateral oophorectomy History of incision and drainage History of surgery on right wrist Hx of surgical procedure Hx of tonsillectomy Status post de Quervain's release surgery Family History Paternal Aunt Breast CA Paternal Aunt Breast CA Social History Household Members: Family and Children Housing: House Patient Tobacco Use Status: Current everyday Tobacco user Tobacco use type: Cigarette Cigarettes Per Day: 10.0 Second Hand Smoke Exposure: No Substance Use Type: Marijuana service: No Current occupational status: employed 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 Review of Systems Const Denies chills and Denies fever(s) Card Denies chest pain Resp Denies cough GI Denies hematochezia and Denies constipation Denies difficulty voiding Physical Exam Vital Signs: Last Vital Signs Pulse 75 01/01/23 15:13 BP 120/66 01/01/23 15:13 Const General: comfortable and no acute distress Resp Effort & Inspection: normal respiratory effort Cardio Rate: regular rate GI Other: Rectal exam - seton in place on the right fistula tract short, no induration, no tenderness, no discharge, external hemorrhoids on the left Palpation (GI): Soft to palpation Assessment & Plan Assessment & Plan (1) Anal fistula: Code(s): K60.3 - Anal fistula Plan: Seton in place. I tighten the seton using a silk 2 0 tie. She was comfortable after tightening. The residual fistula tract is short. I will see her in the office in about 1 month. Coding Level of Care Code Est Pt Level 2 (60798) Diagnoses Anal fistula K60.3
== END 2023-01-01 15:30 | disposition home or self-care (01) ==
PROVIDERS: PCP Internal Medicine; Visit Provider Surgery
DX: K60.3 Anal fistula (principal)
CPT/HCPCS: 99212

== ENCOUNTER → 2023-01-01 15:05 | Outpatient (BNVA) | payer OTHER, SELFPAY | PROVIDERS: PCP Internal Medicine; Visit Provider Surgery | DX: K60.3 Anal fistula (principal) | CPT/HCPCS: 99212 ==

== ENCOUNTER 2023-01-29 15:28 | Outpatient (AMB) | payer OTHER, SELFPAY ==
--- NOTE | 2023-01-29 15:34 | MHC.OFFVIS ---
Intake Vital Signs 01/29/23 15:39 Height 5 ft 5 in Weight 197 lb BMI 32.8 BP 122/67 Blood Pressure Location Rt brachial Position Sitting Pulse 75 Intake Visit Reasons: 1 month follow up visit, seton Intake Note: This patient presents for a one month follow-up assessment for seton. Patient denies complaints at this time. Iron Caster Required: No Accompanied by: Self / Same As Patient Allergies adhesive tape [ADHESIVE TAPE] Allergy (Intermediate, Verified 01/29/23 15:34) RASH adhesive Allergy (Unknown, Uncoded 01/29/23 15:34) rash cortisone injection Allergy (Uncoded 01/29/23 15:34) Swelling Medication List - Last Reconciled 01/29/23 by Dago De Souza MD amoxicillin-pot clavulanate 875-125 mg 1 tab PO BID fluoxetine 1 cap PO DAILY ibuprofen 600 mg PO Q6H PRN levothyroxine 137 mcg PO MOTUWETHFRSA@0630 lidocaine 5% 1 appl topical TID PRN loratadine (Claritin) 10 mg PO DAILY menthol-zinc oxide 0.44-20.6 % (Calmoseptine) 1 appl topical QID PRN ondansetron HCl 4 mg PO Q8H PRN 5 days oxycodone-acetaminophen 5-325 mg (Percocet) 1 tab PO Q4-6H PRN HPI 1 month follow up visit, seton HPI Details She is here for follow-up for her seton for her anal fistula. She denies any new complaints. She says she has good days and bad days with regards to her pain. She denies significant drainage. PFSH Medical History Depression External hemorrhoids with complication Hypothyroidism Smoker Surgical History History of anal fissures History of bilateral oophorectomy History of incision and drainage History of surgery on right wrist Hx of surgical procedure Hx of tonsillectomy Status post de Quervain's release surgery Family History Paternal Aunt Breast CA Paternal Aunt Breast CA Social History Household Members: Family and Children Housing: House Patient Tobacco Use Status: Current everyday Tobacco user Tobacco use type: Cigarette Cigarettes Per Day: 10.0 Second Hand Smoke Exposure: No Substance Use Type: Marijuana service: No Current occupational status: employed 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 Review of Systems Const Denies chills and Denies fever(s) Card Denies chest pain, Denies dyspnea and Denies dyspnea on exertion Resp Denies cough, Denies dyspnea and Denies dyspnea on exertion GI Denies hematochezia and Denies change in bowel habits Denies hematuria Musc Denies back pain and Denies limited range of motion Neuro Denies focal weakness and Denies convulsions Psych Denies depression and Denies mood swings Physical Exam Vital Signs: Last Vital Signs Pulse 75 01/29/23 15:39 BP 122/67 01/29/23 15:39 BMI result Body Mass Index 32.8 Const General: comfortable and no acute distress Resp Effort & Inspection: normal respiratory effort GI Other: Rectal exam shows the seton is in place, with a short remaining fistula tract, no new induration, no active discharge Assessment & Plan Assessment & Plan (1) Anal fistula: Code(s): K60.3 - Anal fistula Plan: Seton in place. I tighten the seton using a silk 2 0 tie to make this snug around the remaining fistula tract. I expect this to continue to cut through. I will see her again in the office in about a month. Coding Level of Care Code Est Pt Level 2 (50036) Diagnoses Anal fistula K60.3
[2023-01-29 15:39] VITALS: BP 122/67; PULSE 75; BMI 32.8
== END 2023-01-29 15:51 | disposition home or self-care (01) ==
PROVIDERS: PCP Internal Medicine; Visit Provider Surgery
DX: K60.3 Anal fistula (principal)
CPT/HCPCS: 99212

== ENCOUNTER → 2023-01-29 15:28 | Outpatient (BNVA) | payer OTHER, SELFPAY | PROVIDERS: PCP Internal Medicine; Visit Provider Surgery | DX: K60.3 Anal fistula (principal) | CPT/HCPCS: 99212 ==

== ENCOUNTER 2023-02-17 16:01 | Emergency (ER) | payer OTHER, SELFPAY ==
--- NOTE | 2023-02-17 16:04 | ECG_ITS ---
Test Reason : HEART RACING Blood Pressure : / mmHG Vent. Rate : 064 BPM Atrial Rate : 064 BPM P-R Int : 136 ms QRS Dur : 088 ms QT Int : 418 ms P-R-T Axes : 062 072 038 degrees QTc Int : 431 ms Normal sinus rhythm Possible Left atrial enlargement Borderline ECG When compared with ECG of 03-DEC-2021 16:20, No significant change was found Referred By: Mae Persaud Electronically Signed By:ALICE GONZALEZ
[2023-02-17 16:06] VITALS: BP 135/87; PULSE 72; RESP 20; TEMP 36.8; O2SAT 100; BMI 31.1
--- NOTE | 2023-02-17 16:06 | ED.GENADULT ---
HPI - General Adult General Chief complaint: General Medical Stated complaint: dizzy, heart racing hx abscess,drain in place Related Data Home Medications Medication Instructions Recorded Confirmed fluoxetine 10 mg capsule 1 cap PO DAILY 10/27/21 02/23/23 levothyroxine 137 mcg tablet 137 mcg PO MOTUWETHFRSA@0630 10/27/21 02/23/23 loratadine 10 mg tablet (Claritin) 10 mg PO DAILY 10/28/21 02/23/23 Previous Rx's Medication Instructions Recorded ondansetron HCl 4 mg tablet 4 mg PO Q8H PRN nausea and 09/01/22 vomiting 5 days #15 tabs menthol 0.44 %-zinc oxide 20.6 % 1 appl topical QID PRN perianal 10/05/22 topical ointment (Calmoseptine) burning #113 grams lidocaine 5 % topical ointment 1 appl topical TID PRN Hemorrhoid 11/15/22 pain #30 grams amoxicillin 875 mg-potassium 1 tab PO BID #14 tabs 12/15/22 clavulanate 125 mg tablet ibuprofen 600 mg tablet 600 mg PO Q6H PRN pain #30 tabs 02/26/23 oxycodone-acetaminophen 5 mg-325 1 tab PO Q4-6H PRN pain #20 tabs 02/26/23 mg tablet (Percocet) Allergies Allergy/AdvReac Type Severity Reaction Status Date / Time adhesive tape [ADHESIVE TAPE] Allergy Intermediate RASH Verified 02/23/23 14:00 adhesive Allergy Unknown rash Uncoded 02/23/23 14:00 cortisone injection Allergy Swelling Uncoded 02/23/23 14:00 PMFSH Past Medical History Medical History External hemorrhoids with complication Smoker Depression Hypothyroidism Surgical History Hx of surgical procedure History of anal fissures Status post de Quervain's release surgery History of surgery on right wrist Hx of tonsillectomy History of incision and drainage History of bilateral oophorectomy Family History Family History Paternal Aunt Breast CA Paternal Aunt Breast CA Social History Social History Household Members: Family and Children Housing: House Patient Tobacco Use Status: Current everyday Tobacco user Tobacco use type: Cigarette Cigarettes Per Day: 10.0 Second Hand Smoke Exposure: No Substance Use Type: Marijuana service: No Current occupational status: employed 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 Also admits to rectal pain, nausea and SOB. Reports baseline drainage from Seton, unchanged from typical. States feels like another abscess is forming. Denies CP, vomiting EKG, Labs, UA ordered Full HPI, ROS and PE to be performed by primary ED provider. Medical Decision Making Lab Data 02/17/23 16:38 02/17/23 16:38 Labs: Lab Results 02/17/23 Range/Units 16:38 WBC 7.9 (4.8-10.8) X10*3/uL RBC 4.53 (4.20-5.50) X10*6/uL Hgb 13.8 (12.0-16.0) g/dl Hct 39.8 (37.0-47.0) % MCV 87.9 (80.0-98.0) fL MCH 30.5 (27.0-33.0) pg MCHC 34.7 (31.0-35.0) g/dl RDW 12.0 (11.0-16.0) % Plt Count 237 (160-400) X10*3/uL MPV 10.9 (9.4-12.3) fL Immature Gran % (Auto) 0.3 (0.0-0.4) % Neut % (Auto) 54.2 (45-73) % Lymph % (Auto) 35.8 (20-40) % [place] % (Auto) 7.9 (2-11) % Eos % (Auto) 1.5 (0-4) % Baso % (Auto) 0.3 (0-2) % Lymph # (Auto) 2.8 (1.2-4.9) X10*3/uL [place] # (Auto) 0.6 (0.1-1.2) X10*3/uL Eos # (Auto) 0.1 (0.0-0.4) X10*3/uL Baso # (Auto) 0.0 (0.0-0.2) X10*3/uL Abs Immat Gran (auto) 0.02 (0.00-0.03) X10*3/uL Absolute Neuts (auto) 4.3 (2.0-8.3) x10*3/uL Absolute Nucleated RBC 0.000 (0.0-0.012) X10*3/uL Nucleated RBC % (auto) 0.0 (0.0-0.2) /100WBC PT 11.6 (11.1-13.3) SEC INR 1.0 (0.9-1.1) Sodium 140 (135-145) mmol/L Potassium 3.6 (3.3-5.1) mmol/L Chloride 108 (96-108) mmol/L Carbon Dioxide 25 (22-29) mmol/L Anion Gap 11 L (12-20) BUN 12 (9-16) mg/dL Creatinine 0.71 (0.5-1.4) mg/dL Estim Creat Clear Calc 114.2 Estimated GFR > 60 Random Glucose 88 (60-115) mg/dL Calcium 9.3 (8.4-10.2) mg/dL Magnesium 2.0 (1.6-2.6) mg/dL Total Bilirubin 0.3 (0.0-1.0) mg/dL Direct Bilirubin 0.1 (0.0-0.5) mg/dL AST 17 (5-31) U/L ALT 17 (0-31) U/L Alkaline Phosphatase 33 L (39-117) U/L Troponin I High Sens < 2.7 (<3.5-17.0) ng/L Total Protein 6.9 (6.5-8.0) g/dL Albumin 4.1 (3.5-5.0) g/dL Urine Color Yellow Urine Appearance Clear Urine pH 6.5 (5.0-9.0) Ur Specific [place] 1.015 (1.005-1.025) Urine Protein Negative (Neg-Trace) mg/dL Urine Glucose (UA) Negative (Negative) mg/dL Urine Ketones Negative (Negative) mg/dL Urine Blood Moderate (2+) H (Negative) Urine Nitrite Negative (Negative) Ur Leukocyte Esterase Negative (Negative) Urine RBC 3-5 H (0-2) /HPF Urine WBC 0-5 (0-5) /HPF Ur Squamous Epith Cells 0-2 (0-2) /HPF Urine Bacteria None Seen (None Seen) Hyaline Casts 0-2 (0-2) /LPF Urine Test NEGATIVE (NEGATIVE) Discharge Plan Discharge Clinical Impression: Rectal pain, Lightheadedness Patient Disposition: Elopement Prescriptions: No Action ondansetron HCl 4 mg tablet 4 mg PO Q8H PRN (Reason: nausea and vomiting) 5 Days Qty: 15 0RF amoxicillin-pot clavulanate 875-125 mg tablet 1 tab PO BID Qty: 14 0RF oxycodone-acetaminophen [Percocet] 5-325 mg tablet 1 tab PO Q4-6H PRN (Reason: pain) Qty: 20 0RF Rx Instructions: Partial Fill upon patient request. ibuprofen 600 mg tablet 600 mg PO Q6H PRN (Reason: pain) Qty: 30 0RF levothyroxine 137 mcg tablet 137 mcg PO MOTUWETHFRSA@0630 fluoxetine 10 mg capsule 1 cap PO DAILY loratadine [Claritin] 10 mg Tablet 10 mg PO DAILY menthol-zinc oxide [Calmoseptine] 0.44-20.6 % ointment 1 appl topical QID PRN (Reason: perianal burning) Qty: 113 0RF lidocaine 5 % ointment 1 appl topical TID PRN (Reason: Hemorrhoid pain) Qty: 30 0RF Discharge Date/Time: 02/17/23 18:44
[2023-02-17 16:43] LABS: MANUAL DIFF FLAG NO
[2023-02-17 16:44] LABS: Basophils Percent Auto 0.3 % (0-2); Eosinophils Absolute Auto 0.1 X10*3/uL (0.0-0.4); Eosinophils Percent Auto 1.5 % (0-4); Hematocrit 39.8 % (37.0-47.0); Hemoglobin 13.8 g/dl (12.0-16.0); Imm Gran Abs Auto 0.02 X10*3/uL (0.00-0.03); Imm Gran Pct Auto 0.3 % (0.0-0.4); Lymphocytes Absolute Auto 2.8 X10*3/uL (1.2-4.9); Lymphocytes Percent Auto 35.8 % (20-40); Mean Corpuscular HGB Conc 34.7 g/dl (31.0-35.0); Mean Corpuscular Hemoglobin 30.5 pg (27.0-33.0); Mean Corpuscular Volume 87.9 fL (80.0-98.0); Mean Platelet Volume 10.9 fL (9.4-12.3); Monocytes Absolute Auto 0.6 X10*3/uL (0.1-1.2); Monocytes Percent Auto 7.9 % (2-11); Neutrophils Absolute Auto 4.3 x10*3/uL (2.0-8.3); Neutrophils Percent Auto 54.2 % (45-73); Platelet Count 237 X10*3/uL (160-400); Red Blood Count 4.53 X10*6/uL (4.20-5.50); White Blood Count 7.9 X10*3/uL (4.8-10.8)
[2023-02-17 16:46] LABS: Appearance Urine Clear; Color Urine Yellow; Glucose Urine UA Negative (Negative); Leukocyte Esterase Urine Negative (Negative); Nitrite Urine Negative (Negative); PH 6.5 (5.0-9.0); Specific Gravity - Urine 1.015 (1.005-1.025); UMIC TRIGGER UACC YES; Urine Blood Moderate (2+) (Negative); Urine Ketones Negative (Negative); Urine Protein Negative (Neg-Trace)
[2023-02-17 16:53] LABS: Bacteria Urine None Seen (None Seen); Hyaline Casts Urine 0-2 /LPF (0-2); Prothrombin Time 11.6 SEC (11.1-13.3); Squamous Epithelial Cell Urine 0-2 /HPF (0-2); WBC Urine 0-5 /HPF (0-5)
[2023-02-17 17:01] LABS: Alanine Aminotransferase 17 U/L (0-31); Albumin Level 4.1 g/dL (3.5-5.0); Alkaline Phosphatase 33 U/L (39-117); Anion Gap 11 (12-20); Aspartate Amino Transferase 17 U/L (5-31); Bilirubin Direct 0.1 mg/dL (0.0-0.5); Bilirubin Total 0.3 mg/dL (0.0-1.0); Blood Urea Nitrogen 12 mg/dL (9-16); Calcium 9.3 mg/dL (8.4-10.2); Carbon Dioxide 25 mmol/L (22-29); Chloride 108 mmol/L (96-108); Creatinine Clr Calc Pharmacy 114.2; Estimated Glomerular Filt Rate > 60; Glucose Random 88 mg/dL (60-115); Potassium 3.6 mmol/L (3.3-5.1); Sodium 140 mmol/L (135-145); Total Protein 6.9 g/dL (6.5-8.0)
[2023-02-17 17:27] LABS: UPreg QC Valid YES; Urine Pregnancy NEGATIVE (NEGATIVE)
[2023-02-17 17:38] LABS: Troponin-I High Sensitivity < 2.7 ng/L (<3.5-17.0)
== END 2023-02-17 18:44 | disposition left against medical advice (07) ==
PROVIDERS: Physician Assistant; Emergency Provider Emergency Medicine; PCP Internal Medicine
DX: R42 Dizziness and giddiness (principal); K62.89 Other specified diseases of anus and rectum; F17.210 Nicotine dependence, cigarettes, uncomplicated; F12.90 Cannabis use, unspecified, uncomplicated; R06.02 Shortness of breath
CPT/HCPCS: 36415; 80048; 80076; 81001; 81025; 83735; 84484; 85025; 85610; 93005; 99283

== ENCOUNTER 2023-02-23 13:43 | Outpatient (AMB) | payer OTHER, SELFPAY ==
--- NOTE | 2023-02-23 13:54 | A.OFFVIS_ITS ---
Intake Vital Signs 02/23/23 14:00 Height 5 ft 5 in BP 134/73 Blood Pressure Location Rt brachial Position Sitting Pulse 61 Intake Visit Reasons: Seton, draining and bleeding Intake Note: This patient presents for an assessment for draining and bleeding, seton. Patient c/o; reports blood and pain, reports building pressure sensation, reports nausea, denies fever or feeling feverish. 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 Required: No Accompanied by: Self / Same As Patient Allergies adhesive tape [ADHESIVE TAPE] Allergy (Intermediate, Verified 02/23/23 14:00) RASH adhesive Allergy (Unknown, Uncoded 02/23/23 14:00) rash cortisone injection Allergy (Uncoded 02/23/23 14:00) Swelling Medication List - Last Reconciled 02/23/23 by Dago De Souza MD amoxicillin-pot clavulanate 875-125 mg 1 tab PO BID fluoxetine 1 cap PO DAILY ibuprofen 600 mg PO Q6H PRN levothyroxine 137 mcg PO MOTUWETHFRSA@0630 lidocaine 5% 1 appl topical TID PRN loratadine (Claritin) 10 mg PO DAILY menthol-zinc oxide 0.44-20.6 % (Calmoseptine) 1 appl topical QID PRN ondansetron HCl 4 mg PO Q8H PRN 5 days oxycodone-acetaminophen 5-325 mg (Percocet) 1 tab PO Q4-6H PRN HPI Seton, draining and bleeding HPI Details She is here for follow-up for her anal fistula with a seton in place. She was worried because she had noticed drainage of purulent material as well as some blood the past couple of days. She also felt that the area had been swolle n recently. She said she wanted this to be checked prior to the weekend. She denies any fever or chills. PFSH Medical History External hemorrhoids with complication Smoker Depression Hypothyroidism Surgical History Hx of surgical procedure History of anal fissures Status post de Quervain's release surgery History of surgery on right wrist Hx of tonsillectomy History of incision and drainage History of bilateral oophorectomy Family History Paternal Aunt Breast CA Paternal Aunt Breast CA Social History Household Members: Family and Children Housing: House Patient Tobacco Use Status: Current everyday Tobacco user Tobacco use type: Cigarette Cigarettes Per Day: 10.0 Second Hand Smoke Exposure: No Substance Use Type: Marijuana service: No Current occupational status: employed 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 Review of Systems Const Denies chills and Denies fever(s) Card Denies chest pain, Denies dyspnea and Denies dyspnea on exertion Resp Denies cough, Denies dyspnea and Denies dyspnea on exertion GI Denies hematochezia and Denies change in bowel habits Denies hematuria Musc Denies back pain and Denies limited range of motion Neuro Denies focal weakness and Denies convulsions Psych Denies depression and Denies mood swings Physical Exam Vital Signs: Last Vital Signs Pulse 61 02/23/23 14:00 BP 134/73 02/23/23 14:00 Const Other: Able to sit down comfortably General: comfortable and no acute distress Resp Effort & Inspection: normal respiratory effort Cardio Rate: regular rate GI Other: Rectal exam - seton in place, no significant induration, no fluctuance, no redness, no drainage at this time, no new sinuses, external hemorrhoids on the left seen on thrombosed Assessment & Plan Assessment & Plan (1) Anal fistula: Code(s): K60.3 - Anal fistula Plan: The seton is still in place. I did not see any new inflammatory changes. I assured her that as a matter fact, the area looks like it is healing well and that the fistula tract is much shorter. I do not see any need for an I and D at this time. I did assure her about my findings and I instructed her to do hot soaks. I will see her again in the office in about 2 weeks for another wound check. I plan on tightening the seton at that time. Coding Level of Care Code Est Pt Level 2 (34373) Diagnoses Anal fistula K60.3
[2023-02-23 14:00] VITALS: BP 134/73; PULSE 61
== END 2023-02-23 14:11 | disposition home or self-care (01) ==
PROVIDERS: PCP Internal Medicine; Visit Provider Surgery
DX: K60.3 Anal fistula (principal)
CPT/HCPCS: 99212

== ENCOUNTER → 2023-02-23 13:43 | Outpatient (BNVA) | payer OTHER, SELFPAY | PROVIDERS: PCP Internal Medicine; Visit Provider Surgery | DX: K60.3 Anal fistula (principal) | CPT/HCPCS: 99212 ==

== ENCOUNTER 2023-03-14 09:30 | Outpatient (AMB) | payer OTHER, SELFPAY ==
[2023-03-14 09:31] VITALS: BP 120/61; PULSE 72; BMI 33.1
--- NOTE | 2023-03-14 09:31 | MHC.OFFVIS ---
Intake Vital Signs 03/14/23 09:31 Height 5 ft 5 in Weight 199 lb BMI 33.1 BP 120/61 Blood Pressure Location Rt brachial Position Sitting Pulse 72 Intake Visit Reasons: 2 week follow-up seton Intake Note: This patient presents for a two week follow-up assessment for seton. Patient c/o; reports greenish discharge with blood from rectum everyday, reports painful bowel movements,? another abscess, ? recurrent hemorrhoids; throbbing pain. 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 Required: No Accompanied by: Self / Same As Patient Allergies adhesive tape [ADHESIVE TAPE] Allergy (Intermediate, Verified 03/14/23 09:39) RASH adhesive Allergy (Unknown, Uncoded 03/14/23 09:39) rash cortisone injection Allergy (Uncoded 03/14/23 09:39) Swelling Medication List - Last Reconciled 03/14/23 by Dago De Souza MD amoxicillin-pot clavulanate 875-125 mg 1 tab PO BID fluoxetine 1 cap PO DAILY ibuprofen 600 mg PO Q6H PRN levothyroxine 137 mcg PO MOTUWETHFRSA@0630 lidocaine 5% 1 appl topical TID PRN loratadine (Claritin) 10 mg PO DAILY menthol-zinc oxide 0.44-20.6 % (Calmoseptine) 1 appl topical QID PRN ondansetron HCl 4 mg PO Q8H PRN 5 days oxycodone-acetaminophen 5-325 mg (Percocet) 1 tab PO Q4-6H PRN HPI 2 week follow-up seton HPI Details 42 year old female here for follow-up for her anal fistula. She has had a seton in place and had been tightening this. However, she says that for the past few weeks, she has been noticing more pain around the fistula site. She feels that an area adjacent to this a little swollen as well. She describes persistent drainage. [facility] Medical History External hemorrhoids with complication Smoker Depression Hypothyroidism Surgical History Hx of surgical procedure History of anal fissures Status post de Quervain's release surgery History of surgery on right wrist Hx of tonsillectomy History of incision and drainage History of bilateral oophorectomy Family History Paternal Aunt Breast CA Paternal Aunt Breast CA Social History Household Members: Family and Children Housing: House Patient Tobacco Use Status: Current everyday Tobacco user Tobacco use type: Cigarette Cigarettes Per Day: 10.0 Second Hand Smoke Exposure: No Substance Use Type: Marijuana service: No Current occupational status: employed 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 Review of Systems Const Denies chills and Denies fever(s) Card Denies chest pain, Denies dyspnea and Denies dyspnea on exertion Resp Denies cough, Denies dyspnea and Denies dyspnea on exertion GI Denies hematochezia and Denies change in bowel habits Denies hematuria Musc Denies back pain and Denies limited range of motion Neuro Denies focal weakness and Denies convulsions Psych Denies depression and Denies mood swings Physical Exam Vital Signs: Last Vital Signs Pulse 72 03/14/23 09:31 BP 120/61 03/14/23 09:31 BMI result Body Mass Index 33.1 Const General: comfortable and no acute distress Orientation/consciousness: patient oriented x3 Neck Neck: Yes no lymphadenopathy Resp Auscultation: clear to auscultation bilaterally Cardio Rhythm: regular rhythm GI Other: Rectal exam - seton in place on the right side, fistula track short, vague induration just anterior to the fistula site, external hemorrhoids on the left, no fluctuance in the anal region Palpation (GI): Soft to palpation, nontender and no guarding Neuro General: patient oriented x3 Assessment & Plan Assessment & Plan (1) Anal fistula: Code(s): K60.3 - Anal fistula Plan: She has had a seton in place. However, she describes having more pain past 3 weeks or so. She says that she has had persistent drainage. There is a vague area of mild induration anterior to the fistula tract. I explained to her that in view of her different kind of pain past few weeks, it may be best to proceed with an exam under anesthesia. I will re-examine the anal canal and see if there is any side that may need to be drained. I will also examine the residual fistula tract. If there is a short tract, I may proceed with a fistulotomy. The moderate-sized external hemorrhoid on the left side does not bother her at this time so I will hold off on excising this. Coding Level of Care Code Est Pt Level 3 (28203) Diagnoses Anal fistula K60.3
== END 2023-03-14 09:48 | disposition home or self-care (01) ==
PROVIDERS: PCP Internal Medicine; Visit Provider Surgery
DX: K60.3 Anal fistula (principal)
CPT/HCPCS: 99213

== ENCOUNTER → 2023-03-14 09:30 | Outpatient (BNVA) | payer OTHER, SELFPAY | PROVIDERS: PCP Internal Medicine; Visit Provider Surgery | DX: K60.3 Anal fistula (principal) | CPT/HCPCS: 99212 ==

== ENCOUNTER 2023-03-23 09:23 | Day surgery (SDC) | payer OTHER, SELFPAY ==
[2023-03-21 14:36] VITALS: BMI 33.1
[2023-03-23] VITALS (17 sets, daily range): BP systolic 107–140; BP diastolic 63–97; PULSE 52–75; RESP 16–24; TEMP 36.2–36.7; O2SAT 95–98
--- NOTE | 2023-03-23 09:44 | HO.ANESPROP2 ---
[facility] Active Problems Active Problems: All Active Problems (Updated 02/27/23 @ 00:02 by Rigoberto Wheeler) External hemorrhoids with complication (Acute) Internal derangement of right knee (Acute) Pes anserine bursitis (Acute) Abscess, perirectal (Acute) Anal fistula (Acute) De Quervain's tenosynovitis, right (Acute) Carpal tunnel syndrome of right wrist (Acute) Past Medical History Medical History External hemorrhoids with complication Smoker Depression Hypothyroidism Family History Family History Paternal Aunt Breast CA Paternal Aunt Breast CA Family history of problems with anesthesia: No Surgical History Surgical History Hx of surgical procedure History of anal fissures Status post de Quervain's release surgery History of surgery on right wrist Hx of tonsillectomy History of incision and drainage History of bilateral oophorectomy History of Problems with Anesthesia: No Social History Social History Household Members: Family and Children Housing: House Patient Tobacco Use Status: Current everyday Tobacco user Tobacco use type: Cigarette Cigarettes Per Day: 10.0 Second Hand Smoke Exposure: No Substance Use Type: Marijuana Advance Directives: No Advance Directives Information Provided: Yes service: No Current occupational status: employed 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 Meds Allergies Allergy/AdvReac Type Severity Reaction Status Date / Time adhesive tape [ADHESIVE TAPE] Allergy Intermediate RASH Verified 03/14/23 09:39 adhesive Allergy Unknown rash Uncoded 03/14/23 09:39 cortisone injection Allergy Swelling Uncoded 03/14/23 09:39 Active Medications: Current Medications Lactated Ringer's (Lr) 1,000 mls @ 80 mls/hr IVCONT .[id number] SHAD Cefotetan Disodium 2 gm/ (Sodium Chloride) 50 mls @ 100 mls/hr IV PREOP ONE Stop: 03/23/23 09:59 Home Medications Medication Instructions Recorded Confirmed Last Taken Type fluoxetine 10 mg capsule 1 cap PO DAILY 10/27/21 03/14/23 Unknown History levothyroxine 137 mcg tablet 137 mcg PO MOTUWETHFRSA@0630 10/27/21 03/14/23 08/29/22 History loratadine 10 mg tablet (Claritin) 10 mg PO DAILY 10/28/21 03/14/23 Unknown History Exam Exam Date and Time: March 23, [id number] Height,Weight and Vital Signs: Height 5 ft 5 in Weight 90.265 kg Airway Mallampati Class: II TM Dist: >3cm Neck ROM: Full Assessment and Plan Assessment Anesthesia Assessment: Anesthesia Plan Discussed and Chart Reviewed Final Anesthetic Review Family History of Problems with Anesthesia: No History of Problems with Anesthesia: No NPO: Yes ASA Class: II Final Preanesthetic Review: No Changes in Pt Med Stat, Meds/Allgs Chart Reviewed, Consent Obtained/Reviewed and Anes Risks/Benef Reviewed Patient Risk: Low Procedure Risk: Low Anesthetic Plan Anesthetic Plan: GA Disposition: Standard PACU
--- NOTE | 2023-03-23 09:46 | MHC.SHP ---
Pre-Procedural Eval Section A Date of Service: 03/23/23 The patient is an INPATIENT: No Changes since office visit: Yes Cold of Flu in the past 2 weeks, Yes New Medical Problems, Yes Changes in Medication and Yes Patient answered all questions The History & Physical has been completed within 30 days and I have reviewed it.: Yes Section B Chief Complaint: Anal fistula Allergies: Allergies Allergy/AdvReac Type Severity Reaction Status Date / Time adhesive tape [ADHESIVE TAPE] Allergy Intermediate RASH Verified 03/14/23 09:39 adhesive Allergy Unknown rash Uncoded 03/14/23 09:39 cortisone injection Allergy Swelling Uncoded 03/14/23 09:39 Plan I have reviewed the history and physical and performed a pertinent physical examination on my patient. No changes have occurred unless specified. Time Spent With Patient Time: Total time managing care of this patient today ____ minutes.
--- NOTE | 2023-03-23 10:59 | W.PM.OPN ---
Operative Note Operative Note Date of Service: 03/23/23 Narrative: Preop diagnosis: Anal fistula, seton in place, with question of a new abscess Postop diagnosis: Anal fistula, seton in place, with area of induration adjacent to fistula site on the right, no abscess with seen Procedure: Exam under anesthesia, I&D of perianal area, with tightening of seton Surgeon: Dago De Souza MD The patient is a 42-year-old female, who has a seton in place for a fistula. She had complained of pain for about 3 weeks now on the right side of the perianal area adjacent to the seton. There was note of an indurated area anterior to the fistulous tract in the office. I therefore explained to her it would be best to proceed with under anesthesia because of this with her concomitant pain. She understood the procedure as well as the risks, benefits, and alternatives She was brought to the operating room and placed in prone milli-knife position under general anesthesia via endotracheal tube. The buttocks were retracted with wide tape laterally. The perianal area was prepped and draped in usual sterile fashion. A surgical time-out was done. The patient received Cefotan 2 g IV . Examination of the anal orifice revealed the seton to be in place loop through the residual fistula tract. There was note of a mild induration adjacent to this and anteriorly. I inserted the be was with a tractor. I examined the anal canal circumferentially. There was no other area of induration within the anal canal itself. There is no suggestion of any other internal sinus opening. I palpated for the entire anal canal and the was no induration or any swelling. There were no other lesions. The fistula tract was seen. The seton was seen through these loop around the entire tract. This appeared to be a much shorter tract than before. I made a short stab incision on the perianal area overlying the area of induration using blade number 11. I carried this down fine tip hemostat to see if we would see any abscess cavity. This area of induration was dry and there was no abscess fluid. There was no other area of induration. I tighten the seton using a silk 2 0 tie to make this snug around the remaining fistula tract. There was also note of an external hemorrhoid on the left side but did not appear to be inflamed or thrombosed . I infiltrated the perianal area with Marcaine 0.5% for postop analgesia. The procedure was completed. The patient tolerated the procedure well. There were no immediate complications. Initial and final counts of sponges and instruments were correct. Estimated blood loss was about 5 cc She was extubated without difficulty and transferred to the recovery room with stable vital signs.
== END 2023-03-23 13:50 | disposition home or self-care (01) ==
PROVIDERS: PCP Internal Medicine; Visit Provider Surgery
PROC: (CPT 46270; principal; 2023-03-23 11:10)
DX: K60.3 Anal fistula (principal); K62.89 Other specified diseases of anus and rectum; Z97.8 Presence of other specified devices; K64.4 Residual hemorrhoidal skin tags
CPT/HCPCS: 46270; J0330; J1100; J1170; J2250; J2405; J3010

== ENCOUNTER → 2023-03-23 09:23 | Outpatient (BNV) | payer OTHER, SELFPAY | PROVIDERS: PCP Internal Medicine; Visit Provider Surgery | DX: K60.3 Anal fistula (principal) | CPT/HCPCS: 46050 ==

== ENCOUNTER 2023-04-05 10:00 | Outpatient (AMB) | payer OTHER, SELFPAY ==
--- NOTE | 2023-04-05 10:07 | A.OFFVIS_ITS ---
Intake Vital Signs 04/05/23 10:11 BP 132/64 Blood Pressure Location Rt brachial Position Sitting Pulse 69 Intake Visit Reasons: S/P EUA, poss. I&D/fistulotomy Intake Note: This patient presents for a post-op assessment status post Exam under anesthesia, I&D of perianal area, with tightening of seton. Patient c/o; reports no changes. Customer Orders Clerk Required: No Accompanied by: Self / Same As Patient Allergies adhesive tape [ADHESIVE TAPE] Allergy (Intermediate, Verified 04/05/23 10:12) RASH adhesive Allergy (Unknown, Uncoded 04/05/23 10:12) rash cortisone injection Allergy (Uncoded 04/05/23 10:12) Swelling HPI S/P EUA, poss. I&D/fistulotomy HPI Details She is here for postop visit. I had done an exam under anesthesia, I&D and tightening of her seton in the operating room 03/23/2023. She tolerated procedure well. She says she still feels that she has this periodic drainage from the fistula tract. She feels that area adjacent to the seemed have some swelling on and off. [facility] Medical History External hemorrhoids with complication Smoker Depression Hypothyroidism Surgical History Hx of surgical procedure (~03/23/23) Hx of surgical procedure History of anal fissures Status post de Quervain's release surgery History of surgery on right wrist Hx of tonsillectomy History of incision and drainage History of bilateral oophorectomy Family History Paternal Aunt Breast CA Paternal Aunt Breast CA Social History Household Members: Family and Children Housing: House Patient Tobacco Use Status: Current everyday Tobacco user Tobacco use type: Cigarette Cigarettes Per Day: 10.0 Second Hand Smoke Exposure: No Substance Use Type: Marijuana service: No Current occupational status: employed 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 Review of Systems Const Denies chills and Denies fever(s) Card Denies chest pain, Denies dyspnea and Denies dyspnea on exertion Resp Denies cough, Denies dyspnea and Denies dyspnea on exertion GI Reports hematochezia and Denies change in bowel habits Denies hematuria Musc Denies back pain and Denies limited range of motion Neuro Denies focal weakness and Denies convulsions Psych Denies depression and Denies mood swings Physical Exam Vital Signs: Last Vital Signs Pulse 69 04/05/23 10:11 BP 132/64 04/05/23 10:11 Const Other: Able to sit down well General: comfortable and no acute distress Resp Effort & Inspection: normal respiratory effort GI Other: Rectal exam - seton in place with a short tract, some edema of the area anterior to this with no once, no new sinuses Assessment & Plan Assessment & Plan (1) Anal fistula: Code(s): K60.3 - Anal fistula Plan: I did not find any abscess when I did her exam under anesthesia last March 23. I did tighten her seton at that time. She continues to have this periodic drainage. I will keep the seton in place. I might have to order for repeat MRI down the line. I will see her again in the office in about 1 month again. Coding Level of Care Code Global (67602) Diagnoses Anal fistula K60.3
[2023-04-05 10:11] VITALS: BP 132/64; PULSE 69
== END 2023-04-05 10:19 | disposition home or self-care (01) ==
PROVIDERS: PCP Internal Medicine; Visit Provider Surgery
DX: K60.3 Anal fistula (principal)
CPT/HCPCS: 99024

== ENCOUNTER → 2023-04-05 10:00 | Outpatient (BNVA) | payer OTHER, SELFPAY | PROVIDERS: PCP Internal Medicine; Visit Provider Surgery ==

== ENCOUNTER 2023-04-30 10:41 | Outpatient (AMB) | payer OTHER, SELFPAY ==
--- NOTE | 2023-04-30 10:47 | A.OFFVIS_ITS ---
Intake Vital Signs 04/30/23 10:53 BP 127/71 Blood Pressure Location Rt brachial Position Sitting Pulse 88 Intake Visit Reasons: one month S/P EUA, poss. I&D/fistulotomy Intake Note: This patinet presents for a one month follow-up assessment for seton. Patient c/o; reports new abscess within last 24 hrs, reports pain. Protective Signal Superintendent Required: No Accompanied by: Self / Same As Patient Allergies adhesive tape [ADHESIVE TAPE] Allergy (Intermediate, Verified 04/05/23 10:12) RASH adhesive Allergy (Unknown, Uncoded 04/05/23 10:12) rash cortisone injection Allergy (Uncoded 04/05/23 10:12) Swelling Medication List - Last Reconciled 04/30/23 by Dago De Souza MD amoxicillin-pot clavulanate 875-125 mg 1 tab PO BID fluoxetine 1 cap PO DAILY ibuprofen 600 mg PO Q6H PRN ibuprofen 600 mg PO Q6H PRN levothyroxine 137 mcg PO MOTUWETHFRSA@0630 lidocaine 5% 1 appl topical TID PRN loratadine (Claritin) 10 mg PO DAILY menthol-zinc oxide 0.44-20.6 % (Calmoseptine) 1 appl topical QID PRN ondansetron HCl 4 mg PO Q8H PRN 5 days oxycodone-acetaminophen 5-325 mg (Percocet) 1 tab PO Q4-6H PRN oxycodone-acetaminophen 5-325 mg (Percocet) 1 tab PO Q4-6H PRN HPI one month S/P EUA, poss. I&D/fistulotomy HPI Details She is here for a follow-up for her anal fistula with a seton in place. She says that she had been doing much better with much less drainage and pain. However, last night, she had noticed swelling on the area next to her seton. She describes pain with this as well. She denies any new drainage. PFSH Medical History External hemorrhoids with complication Smoker Depression Hypothyroidism Surgical History Hx of surgical procedure (~03/23/23) Hx of surgical procedure History of anal fissures Status post de Quervain's release surgery History of surgery on right wrist Hx of tonsillectomy History of incision and drainage History of bilateral oophorectomy Family History Paternal Aunt Breast CA Paternal Aunt Breast CA Social History Household Members: Family and Children Housing: House Patient Tobacco Use Status: Current everyday Tobacco user Tobacco use type: Cigarette Cigarettes Per Day: 10.0 Second Hand Smoke Exposure: No Substance Use Type: Marijuana service: No Current occupational status: employed 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 Review of Systems Const Denies chills and Denies fever(s) Card Denies chest pain, Denies dyspnea and Denies dyspnea on exertion Resp Denies cough, Denies dyspnea and Denies dyspnea on exertion GI Denies hematochezia and Denies change in bowel habits Denies hematuria Musc Denies back pain and Denies limited range of motion Neuro Denies focal weakness and Denies convulsions Psych Denies depression and Denies mood swings Physical Exam Vital Signs: Last Vital Signs Pulse 88 04/30/23 10:53 BP 127/71 04/30/23 10:53 Const Other: Able to sit down comfortably General: comfortable and no acute distress Resp Effort & Inspection: normal respiratory effort Cardio Rate: regular rate GI Other: rectal exam shows some edema immediately adjacent and anterior to the seton, no fluctuance, no open wound, seton in place, no new induration Palpation (GI): Soft to palpation and not firm Assessment & Plan Assessment & Plan (1) Anal fistula: Code(s): K60.3 - Anal fistula Plan: seton in place. There does not seem to be any active drainage. However, she complained of swelling anterior to the seton. This is likely secondary to irritation from the seton itself with rubbing I did not tighten the seton today. I told her to continue doing warm soaks. I will see her again in the office in about 3 weeks. Coding Level of Care Code Est Pt Level 2 (46324) Diagnoses Anal fistula K60.3
[2023-04-30 10:53] VITALS: BP 127/71; PULSE 88
== END 2023-04-30 11:03 | disposition home or self-care (01) ==
PROVIDERS: PCP Internal Medicine; Visit Provider Surgery
DX: K60.3 Anal fistula (principal)
CPT/HCPCS: 99212

== ENCOUNTER → 2023-04-30 10:41 | Outpatient (BNVA) | payer OTHER, SELFPAY | PROVIDERS: PCP Internal Medicine; Visit Provider Surgery | DX: K60.3 Anal fistula (principal) | CPT/HCPCS: 99212 ==

== ENCOUNTER 2023-05-17 12:57 | Outpatient (AMB) | payer OTHER, SELFPAY ==
[2023-05-17 13:05] VITALS: BP 130/70; PULSE 80
--- NOTE | 2023-05-17 13:05 | MHC.OFFVIS ---
Intake Vital Signs 05/17/23 13:05 BP 130/70 Blood Pressure Location Rt brachial Position Sitting Pulse 80 Intake Visit Reasons: swelling, drainage and pain Intake Note: This patient presents for an assessment for swelling, drainage and pain, seton. Patient c/o; reports yellowish drainage, reports constipation, reports soreness. Communications Tech Required: No Accompanied by: Self / Same As Patient Allergies adhesive tape [ADHESIVE TAPE] Allergy (Intermediate, Verified 05/17/23 13:06) RASH adhesive Allergy (Unknown, Uncoded 05/17/23 13:06) rash cortisone injection Allergy (Uncoded 05/17/23 13:06) Swelling Medication List - Last Reconciled 05/17/23 by Dago De Souza MD amoxicillin-pot clavulanate 875-125 mg 1 tab PO BID fluoxetine 1 cap PO DAILY ibuprofen 600 mg PO Q6H PRN ibuprofen 600 mg PO Q6H PRN levothyroxine 137 mcg PO MOTUWETHFRSA@0630 lidocaine 5% 1 appl topical TID PRN loratadine (Claritin) 10 mg PO DAILY menthol-zinc oxide 0.44-20.6 % (Calmoseptine) 1 appl topical QID PRN ondansetron HCl 4 mg PO Q8H PRN 5 days oxycodone-acetaminophen 5-325 mg (Percocet) 1 tab PO Q4-6H PRN oxycodone-acetaminophen 5-325 mg (Percocet) 1 tab PO Q4-6H PRN HPI swelling, drainage and pain HPI Details She is here for a follow-up for her anal fistula. Her seton had come off about 2 weeks ago when she was going to [place]. She says that she still has scanty drainage although this is not the same as before. She describes a little bit of pain in the area although she is able to sit down comfortably. [facility] Medical History External hemorrhoids with complication Smoker Depression Hypothyroidism Surgical History Hx of surgical procedure (~03/23/23) Hx of surgical procedure History of anal fissures Status post de Quervain's release surgery History of surgery on right wrist Hx of tonsillectomy History of incision and drainage History of bilateral oophorectomy Family History Paternal Aunt Breast CA Paternal Aunt Breast CA Social History Household Members: Family and Children Housing: House Patient Tobacco Use Status: Current everyday Tobacco user Tobacco use type: Cigarette Cigarettes Per Day: 10.0 Second Hand Smoke Exposure: No Substance Use Type: Marijuana service: No Current occupational status: employed 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 Review of Systems Const Denies chills and Denies fever(s) Card Denies chest pain, Denies dyspnea and Denies dyspnea on exertion Resp Denies cough, Denies dyspnea and Denies dyspnea on exertion GI Denies hematochezia and Denies change in bowel habits Denies hematuria Musc Denies back pain and Denies limited range of motion Neuro Denies focal weakness and Denies convulsions Psych Denies depression and Denies mood swings Physical Exam Vital Signs: Last Vital Signs Pulse 80 05/17/23 13:05 BP 130/70 05/17/23 13:05 Const General: comfortable and no acute distress Resp Effort & Inspection: normal respiratory effort GI Other: Rectal exam - no new fluctuance, no new induration although there is a little bit of skin swelling the previous site of the seton, no new sinus, scar from the previous fistula is seen Assessment & Plan Assessment & Plan (1) Anal fistula: Code(s): K60.3 - Anal fistula Plan: Status post seton placement. The seton has come off completely. I do not see any new sinus or fistula. There is no significant induration although there is still a little bit of skin swelling from where the than was before. I have instructed her to continue to do hot Sitz baths for now. I will see her again in the office in about 3-4 weeks. Coding Level of Care Code Est Pt Level 2 (89944) Diagnoses Anal fistula K60.3
== END 2023-05-17 13:37 | disposition home or self-care (01) ==
PROVIDERS: PCP Internal Medicine; Visit Provider Surgery
DX: K60.3 Anal fistula (principal)
CPT/HCPCS: 99212

== ENCOUNTER → 2023-05-17 12:57 | Outpatient (BNVA) | payer OTHER, SELFPAY | PROVIDERS: PCP Internal Medicine; Visit Provider Surgery | DX: Z87.19 Personal history of other diseases of the digestive system (principal) | CPT/HCPCS: 99212 ==

== ENCOUNTER 2023-05-28 15:24 | Outpatient (AMB) | payer OTHER, SELFPAY ==
--- NOTE | 2023-05-28 15:35 | A.OFFVIS_ITS ---
Intake Intake Visit Reasons: drainage, pain ? recurrent perianal abscess Intake Note: This patient presents for an assessment for x2 possible new perianal abscess, question infection. Patient c/o; reports no changes. Laser Systems Engineer Required: No Accompanied by: Self / Same As Patient Allergies adhesive tape [ADHESIVE TAPE] Allergy (Intermediate, Verified 05/28/23 15:38) RASH adhesive Allergy (Unknown, Uncoded 05/28/23 15:38) rash cortisone injection Allergy (Uncoded 05/28/23 15:38) Swelling Medication List - Last Reconciled 05/28/23 by Dago De Souza MD amoxicillin-pot clavulanate 875-125 mg 1 tab PO BID fluoxetine 1 cap PO DAILY ibuprofen 600 mg PO Q6H PRN ibuprofen 600 mg PO Q6H PRN levothyroxine 137 mcg PO MOTUWETHFRSA@0630 lidocaine 5% 1 appl topical TID PRN loratadine (Claritin) 10 mg PO DAILY menthol-zinc oxide 0.44-20.6 % (Calmoseptine) 1 appl topical QID PRN ondansetron HCl 4 mg PO Q8H PRN 5 days oxycodone-acetaminophen 5-325 mg (Percocet) 1 tab PO Q4-6H PRN oxycodone-acetaminophen 5-325 mg (Percocet) 1 tab PO Q4-6H PRN HPI drainage, pain ? recurrent perianal abscess HPI Details She wanted the previous seton site checked as she describes pain in the area. She is worried that she has another abscess She says that there is some drainage from the same area as well. PFSH Medical History External hemorrhoids with complication Smoker Depression Hypothyroidism Surgical History Hx of surgical procedure (~03/23/23) Hx of surgical procedure History of anal fissures Status post de Quervain's release surgery History of surgery on right wrist Hx of tonsillectomy History of incision and drainage History of bilateral oophorectomy Family History Paternal Aunt Breast CA Paternal Aunt Breast CA Social History Household Members: Family and Children Housing: House Patient Tobacco Use Status: Current everyday Tobacco user Tobacco use type: Cigarette Cigarettes Per Day: 10.0 Second Hand Smoke Exposure: No Substance Use Type: Marijuana service: No Current occupational status: employed 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 Review of Systems Const Denies chills and Denies fever(s) Card Denies chest pain, Denies dyspnea and Denies dyspnea on exertion Resp Denies cough, Denies dyspnea and Denies dyspnea on exertion GI Denies hematochezia and Denies change in bowel habits Denies hematuria Musc Denies back pain and Denies limited range of motion Neuro Denies focal weakness and Denies convulsions Psych Denies depression and Denies mood swings Physical Exam Const General: comfortable and no acute distress Resp Effort & Inspection: normal respiratory effort GI Other: Rectal exam - buttocks retracted to expose the entire area anus; examination of the old seton site showed that part of the seton was actually still within the tract. I removed this completely using forceps. There was no induration. There is no discharge or fluctuance in the area. There is no evidence of any new sinus Assessment & Plan Assessment & Plan (1) Anal fistula: Code(s): K60.3 - Anal fistula Plan: Status post seton. She had stated this seton had come off last month. However, further examination today shows that part of the seton was still within the fistula tract so I pulled this out without difficulty. Otherwise, there was no new induration, redness, discharge or fluctuance. It appears that the presence of the seton may actually have been causing irritation in the area so hopefully this will improve from here on. I will see her again in the office next week. Coding Level of Care Code Est Pt Level 2 (07599) Diagnoses Anal fistula K60.3
== END 2023-05-28 15:39 | disposition home or self-care (01) ==
PROVIDERS: PCP Internal Medicine; Visit Provider Surgery
DX: K60.3 Anal fistula (principal)
CPT/HCPCS: 99212

== ENCOUNTER → 2023-05-28 15:24 | Outpatient (BNVA) | payer OTHER, SELFPAY | PROVIDERS: PCP Internal Medicine; Visit Provider Surgery | DX: K60.3 Anal fistula (principal) | CPT/HCPCS: 99212 ==

== ENCOUNTER 2023-06-07 14:19 | Outpatient (AMB) | payer OTHER, SELFPAY ==
--- NOTE | 2023-06-07 14:35 | A.OFFVIS_ITS ---
Intake Vital Signs 06/07/23 14:40 BP 131/69 Blood Pressure Location Rt brachial Position Sitting Pulse 71 Intake Visit Reasons: Anal fistula, 3 wk follow up Intake Note: This patient presents for a three week follow-up assessment for anal fistula. Patient c/o; reports drainage has stopped, reports throbbing pain. Alteration Workroom Supervisor Required: No Accompanied by: Self / Same As Patient Allergies adhesive tape [ADHESIVE TAPE] Allergy (Intermediate, Verified 06/07/23 14:41) RASH adhesive Allergy (Unknown, Uncoded 06/07/23 14:41) rash cortisone injection Allergy (Uncoded 06/07/23 14:41) Swelling Medication List - Last Reconciled 06/07/23 by Dago De Souza MD amoxicillin-pot clavulanate 875-125 mg 1 tab PO BID fluoxetine 1 cap PO DAILY ibuprofen 600 mg PO Q6H PRN ibuprofen 600 mg PO Q6H PRN levothyroxine 137 mcg PO MOTUWETHFRSA@0630 lidocaine 5% 1 appl topical TID PRN loratadine (Claritin) 10 mg PO DAILY menthol-zinc oxide 0.44-20.6 % (Calmoseptine) 1 appl topical QID PRN ondansetron HCl 4 mg PO Q8H PRN 5 days oxycodone-acetaminophen 5-325 mg (Percocet) 1 tab PO Q4-6H PRN oxycodone-acetaminophen 5-325 mg (Percocet) 1 tab PO Q4-6H PRN HPI Anal fistula, 3 wk follow up HPI Details She is here for follow-up for her history of anal fistula with swelling. I had last seen her in the office 2 weeks ago as she had some swelling on the previous fistula tract. She had a seton that was retained within the fistula tract which I had removed. She actually has much less pain now. She says her drainage is also stop. She does not feel any swelling although admits that she feels pressure when she is sitting on a hard object. PFSH Medical History External hemorrhoids with complication Smoker Depression Hypothyroidism Surgical History Hx of surgical procedure (~03/23/23) Hx of surgical procedure History of anal fissures Status post de Quervain's release surgery History of surgery on right wrist Hx of tonsillectomy History of incision and drainage History of bilateral oophorectomy Family History Paternal Aunt Breast CA Paternal Aunt Breast CA Social History Household Members: Family and Children Housing: House Patient Tobacco Use Status: Current everyday Tobacco user Tobacco use type: Cigarette Cigarettes Per Day: 10.0 Second Hand Smoke Exposure: No Substance Use Type: Marijuana service: No Current occupational status: employed 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 Review of Systems Const Denies chills and Denies fever(s) Card Denies chest pain, Denies dyspnea and Denies dyspnea on exertion Resp Denies cough, Denies dyspnea and Denies dyspnea on exertion GI Denies hematochezia and Denies change in bowel habits Denies hematuria Musc Denies back pain and Denies limited range of motion Neuro Denies focal weakness and Denies convulsions Psych Denies depression and Denies mood swings Physical Exam Vital Signs: Last Vital Signs Pulse 71 06/07/23 14:40 BP 131/69 06/07/23 14:40 Const General: comfortable and no acute distress Resp Effort & Inspection: normal respiratory effort Cardio Rate: regular rate GI Other: Rectal exam - no induration at this time, no swelling or fluctuance, no active discharge, no significant tenderness, old fistula tract seems to be fibrotic now Assessment & Plan Assessment & Plan (1) Anal fistula: Code(s): K60.3 - Anal fistula Plan: Status post seton placement. Her seton is completely removed. She does not have any new induration, drainage or fluctuance. The site appears healed although with some fibrotic changes I told her to continue to massage the area to promote drainage. She is to continue warm soaks. I will see her again for another wound check in about a month. Coding Level of Care Code Est Pt Level 2 (07984) Diagnoses Anal fistula K60.3
[2023-06-07 14:40] VITALS: BP 131/69; PULSE 71
== END 2023-06-07 14:49 | disposition home or self-care (01) ==
PROVIDERS: PCP Internal Medicine; Visit Provider Surgery
DX: K60.3 Anal fistula (principal)
CPT/HCPCS: 99212

== ENCOUNTER → 2023-06-07 14:19 | Outpatient (BNVA) | payer OTHER, SELFPAY | PROVIDERS: PCP Internal Medicine; Visit Provider Surgery | DX: K60.3 Anal fistula (principal); Z98.890 Other specified postprocedural states | CPT/HCPCS: 99212 ==

== ENCOUNTER 2023-07-04 09:14 | Outpatient (AMB) | payer OTHER, SELFPAY ==
--- NOTE | 2023-07-04 09:16 | A.OFFVIS_ITS ---
Intake Vital Signs 07/04/23 09:24 BP 122/64 Blood Pressure Location Rt brachial Position Sitting Pulse 77 Intake Visit Reasons: Anal fistula, one month follow up Intake Note: This patient presents for a one month follow-up for anal fistula. Patient c/o; reports bloody discharge. Employee Placement Specialist Required: No Accompanied by: Self / Same As Patient Allergies adhesive tape [ADHESIVE TAPE] Allergy (Intermediate, Verified 07/04/23 09:25) RASH adhesive Allergy (Unknown, Uncoded 07/04/23 09:25) rash cortisone injection Allergy (Uncoded 07/04/23 09:25) Swelling Medication List - Last Reconciled 07/04/23 by Dago De Souza MD amoxicillin-pot clavulanate 875-125 mg 1 tab PO BID fluoxetine 1 cap PO DAILY ibuprofen 600 mg PO Q6H PRN ibuprofen 600 mg PO Q6H PRN levothyroxine 137 mcg PO MOTUWETHFRSA@0630 lidocaine 5% 1 appl topical TID PRN loratadine (Claritin) 10 mg PO DAILY menthol-zinc oxide 0.44-20.6 % (Calmoseptine) 1 appl topical QID PRN ondansetron HCl 4 mg PO Q8H PRN 5 days oxycodone-acetaminophen 5-325 mg (Percocet) 1 tab PO Q4-6H PRN oxycodone-acetaminophen 5-325 mg (Percocet) 1 tab PO Q4-6H PRN HPI Anal fistula, one month follow up HPI Details She is here for follow-up after seton placement. The seton had been removed over a month ago She describes some occasional scanty drainage and sharp pain. However, she does state that this is not nearly as bad as it was before. [facility] Medical History External hemorrhoids with complication Smoker Depression Hypothyroidism Surgical History Hx of surgical procedure (~03/23/23) Hx of surgical procedure History of anal fissures Status post de Quervain's release surgery History of surgery on right wrist Hx of tonsillectomy History of incision and drainage History of bilateral oophorectomy Family History Paternal Aunt Breast CA Paternal Aunt Breast CA Social History Household Members: Family and Children Housing: House Patient Tobacco Use Status: Current everyday Tobacco user Tobacco use type: Cigarette Cigarettes Per Day: 10.0 Second Hand Smoke Exposure: No Substance Use Type: Marijuana service: No Current occupational status: employed 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 Review of Systems Const Denies chills and Denies fever(s) Card Denies chest pain, Denies dyspnea and Denies dyspnea on exertion Resp Denies cough, Denies dyspnea and Denies dyspnea on exertion GI Denies hematochezia and Denies change in bowel habits Denies hematuria Musc Denies back pain and Denies limited range of motion Neuro Denies focal weakness and Denies convulsions Psych Denies depression and Denies mood swings Physical Exam Vital Signs: Last Vital Signs Pulse 77 07/04/23 09:24 BP 122/64 07/04/23 09:24 Const General: comfortable and no acute distress Resp Effort & Inspection: normal respiratory effort GI Other: Rectal exam - no drainage, no induration, no tenderness, no redness, fistula tract seems to have healed Assessment & Plan Assessment & Plan (1) Anal fistula: Code(s): K60.3 - Anal fistula Plan: She previously had a seton and this had been removed. Currently, I do not feel any new induration, or any abscess or discharge. I explained to her that this is the best that the anal orifice has been since I have started seeing her. I did instruct her to continue doing massages to the area to make sure that there was no fluid that accumulates. I will see her again in the office in about 1 or 2 months to see how she is doing. Currently, it appears that the fistula tract has healed. Coding Level of Care Code Est Pt Level 2 (20680) Diagnoses Anal fistula K60.3
[2023-07-04 09:24] VITALS: BP 122/64; PULSE 77
== END 2023-07-04 09:34 | disposition home or self-care (01) ==
PROVIDERS: PCP Internal Medicine; Visit Provider Surgery
DX: K60.3 Anal fistula (principal)
CPT/HCPCS: 99212

== ENCOUNTER → 2023-07-04 09:14 | Outpatient (BNVA) | payer OTHER, SELFPAY | PROVIDERS: PCP Internal Medicine; Visit Provider Surgery | DX: K60.3 Anal fistula (principal) | CPT/HCPCS: 99212 ==

== ENCOUNTER 2023-07-09 14:24 | Outpatient (AMB) | payer OTHER, SELFPAY ==
--- NOTE | 2023-07-09 14:34 | MHC.OFFVIS ---
Intake Vital Signs 07/09/23 14:38 BP 121/70 Blood Pressure Location Rt brachial Position Sitting Pulse 74 Intake Visit Reasons: pt in pain-anal fissure Intake Note: This patient presents for an assessment for anal fissure. Patient c/o; reports throbbing pain, reports no draining or discharge, reports no bleeding, reports nausea. Transportation Department Head Required: No Accompanied by: Self / Same As Patient Allergies adhesive tape [ADHESIVE TAPE] Allergy (Intermediate, Verified 07/09/23 14:39) RASH adhesive Allergy (Unknown, Uncoded 07/09/23 14:39) rash cortisone injection Allergy (Uncoded 07/09/23 14:39) Swelling Medication List - Last Reconciled 07/09/23 by Dago De Souza MD amoxicillin-pot clavulanate 875-125 mg 1 tab PO BID fluoxetine 1 cap PO DAILY ibuprofen 600 mg PO Q6H PRN ibuprofen 600 mg PO Q6H PRN levothyroxine 137 mcg PO MOTUWETHFRSA@0630 lidocaine 5% 1 appl topical TID PRN loratadine (Claritin) 10 mg PO DAILY menthol-zinc oxide 0.44-20.6 % (Calmoseptine) 1 appl topical QID PRN ondansetron HCl 4 mg PO Q8H PRN 5 days oxycodone-acetaminophen 5-325 mg (Percocet) 1 tab PO Q4-6H PRN oxycodone-acetaminophen 5-325 mg (Percocet) 1 tab PO Q4-6H PRN HPI pt in pain-anal fissure HPI Details She says that she has been started to have this sharp pain on the right buttock area. She denies any drainage. She does not feel an actual swelling She says that the pain seems to start from the right perianal area with the buttock. She denies any fever. This is worse when she is sitting down. PFSH Medical History Buttock pain External hemorrhoids with complication Smoker Depression Hypothyroidism Surgical History Hx of surgical procedure (~03/23/23) Hx of surgical procedure History of anal fissures Status post de Quervain's release surgery History of surgery on right wrist Hx of tonsillectomy History of incision and drainage History of bilateral oophorectomy Family History Paternal Aunt Breast CA Paternal Aunt Breast CA Social History Household Members: Family and Children Housing: House Patient Tobacco Use Status: Current everyday Tobacco user Tobacco use type: Cigarette Cigarettes Per Day: 10.0 Second Hand Smoke Exposure: No Substance Use Type: Marijuana service: No Current occupational status: employed 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 Review of Systems Const Denies chills and Denies fever(s) Card Denies chest pain, Denies dyspnea and Denies dyspnea on exertion Resp Denies cough, Denies dyspnea and Denies dyspnea on exertion GI Denies hematochezia and Denies change in bowel habits Denies hematuria Musc Denies back pain and Denies limited range of motion Neuro Denies focal weakness and Denies convulsions Psych Denies depression and Denies mood swings Physical Exam Vital Signs: Last Vital Signs Pulse 74 07/09/23 14:38 BP 121/70 07/09/23 14:38 Const General: comfortable and no acute distress GI Other: Rectal exam - old site is dry, seems well healed, no actual induration, no redness, no discharge, no palpable mass or any fluctuance in the area including the right buttock Assessment & Plan Assessment & Plan (1) Buttock pain: Code(s): M79.18 - Myalgia, other site Plan: She describes sharp pain again on the right side of the anus all the way to the buttock. I do not feel any obvious induration or swelling fluctuance at this time I am going to order for a CT scan of the pelvis with IV contrast as workup for this sharp pain. In the meantime, she can continue with warm soaks as well as ibuprofen. She understands the plan. Orders: Orders CT pelvis w IV con Today M79.18 - Myalgia, other site Blood Urea Nitrogen Today M79.18 - Myalgia, other site Creatinine Today M79.18 - Myalgia, other site Coding Level of Care Code Est Pt Level 3 (92863) Diagnoses Buttock pain M79.18
[2023-07-09 14:38] VITALS: BP 121/70; PULSE 74
== END 2023-07-09 15:42 | disposition home or self-care (01) ==
PROVIDERS: PCP Internal Medicine; Visit Provider Surgery
DX: M79.18 Myalgia, other site (principal)
CPT/HCPCS: 99213

== ENCOUNTER 2023-07-09 14:24 | Outpatient (REF) | payer OTHER, SELFPAY ==
[2023-07-09 16:11] LABS: Blood Urea Nitrogen 12 mg/dL (9-16); Estimated Glomerular Filt Rate > 60
== END 2023-07-09 14:25 | disposition home or self-care (01) ==
LOC: HO.LAB 14:24
PROVIDERS: PCP Internal Medicine; Visit Provider Surgery
DX: M79.18 Myalgia, other site (principal)
CPT/HCPCS: 36415; 82565; 84520; 99212

== ENCOUNTER 2023-07-12 12:49 | Outpatient (REF) | payer OTHER, SELFPAY ==
--- NOTE | ~2023-07-12 | CT_ITS ---
EXAMINATION: CT PELVIS WITH CONTRAST CLINICAL INFORMATION: Myalgia. Body pain. COMPARISON: Most recent pelvic CT dated 12/11/2022 and MRI dated 07/11/2022. TECHNIQUE: Helical scanning was performed with submillimeter collimation through the pelvis with the use of oral contrast and during bolus intravenous injection of 85 mL of Omnipaque 350 intravenous contrast. Sagittal and coronal multiplanar 2-D reconstructions were obtained. This CT examination was performed using dose optimization techniques as appropriate, variously including the following: *Automated exposure control *Adjustment of mA and/or kV according to patient size (this includes techniques or standardized protocols for targeted exams where dose is matched to indication/reason for exam; i.e. extremities or head) *Use of iterative reconstruction technique DLP: 709 mGy-cm FINDINGS: PELVIS: Redemonstration of a right adnexal complex cyst measuring approximately 3.8 x 2.8 cm, similar when compared to the prior examination. Hypoenhancing foci within the uterine fundus which could represent a small amount of fluid within the endometrial cavity. Findings are increased when compared to the prior examination. No enhancing soft tissue mass. The remaining visualized intrapelvic structures are unremarkable. Pelvic phleboliths are redemonstrated. No new pelvic wall hernia. Resolution of the previously seen perirectal abscess. OSSEOUS STRUCTURES: No acute osseous abnormality. No fracture or dislocation. No concerning lytic or blastic osseous lesion. No evidence of avascular necrosis. The visualized muscles and tendons are intact. No evidence of acute injury. No enhancement or inflammatory change. CT/CT pelvis w IV con IMPRESSION: 1. No acute osseous or myotendinous injury. 2. Complex right adnexal cyst which is positioned represent an endometrioma, similar when compared to the prior examination. 3. Trace fluid within the distal aspect of the endometrial cavity, new when compared to the prior examination. 4. Resolution of the previously seen perirectal abscess.
[2023-07-12] MEDS: iohexoL 350 MG/ML 100 ML INFUS..BTL IV (13:59)
== END 2023-07-12 12:50 | disposition home or self-care (01) ==
LOC: HO.CT 12:49
PROVIDERS: PCP Internal Medicine; Visit Provider Surgery
DX: M79.18 Myalgia, other site (principal)
CPT/HCPCS: 72193; Q9967

== ENCOUNTER 2023-07-20 14:46 | Outpatient (AMB) | payer OTHER, SELFPAY ==
--- NOTE | 2023-07-20 14:48 | MHC.OFFVIS ---
Intake Vital Signs 07/20/23 14:52 BP 135/73 Blood Pressure Location Rt brachial Position Sitting Pulse 88 Intake Visit Reasons: anal fistula, pain/swelling Intake Note: This patient presents for an assessment for anal fistula, pain and swelling. Patient c/o; reports no fever or chills, reports no draining, reports pain and swelling. Special Investigation Unit Investigator Required: No Accompanied by: Self / Same As Patient Allergies adhesive tape [ADHESIVE TAPE] Allergy (Intermediate, Verified 07/20/23 14:53) RASH adhesive Allergy (Unknown, Uncoded 07/20/23 14:53) rash cortisone injection Allergy (Uncoded 07/20/23 14:53) Swelling Medication List - Last Reconciled 07/20/23 by Dago De Souza MD amoxicillin-pot clavulanate 875-125 mg 1 tab PO BID fluoxetine 1 cap PO DAILY ibuprofen 600 mg PO Q6H PRN ibuprofen 600 mg PO Q6H PRN levothyroxine 137 mcg PO MOTUWETHFRSA@0630 lidocaine 5% 1 appl topical TID PRN loratadine (Claritin) 10 mg PO DAILY menthol-zinc oxide 0.44-20.6 % (Calmoseptine) 1 appl topical QID PRN ondansetron HCl 4 mg PO Q8H PRN 5 days oxycodone-acetaminophen 5-325 mg (Percocet) 1 tab PO Q4-6H PRN oxycodone-acetaminophen 5-325 mg (Percocet) 1 tab PO Q4-6H PRN HPI anal fistula, pain/swelling HPI Details She called the office because of what she felt was pain on the left side of her anus. She says that this was away from where she had the fistula before. She denies any new drainage. She was worried about an ?abscess? as the weekend is coming up. [facility] Medical History Buttock pain External hemorrhoids with complication Smoker Depression Hypothyroidism Surgical History Hx of surgical procedure (~03/23/23) Hx of surgical procedure History of anal fissures Status post de Quervain's release surgery History of surgery on right wrist Hx of tonsillectomy History of incision and drainage History of bilateral oophorectomy Family History Paternal Aunt Breast CA Paternal Aunt Breast CA Social History Household Members: Family and Children Housing: House Patient Tobacco Use Status: Current everyday Tobacco user Tobacco use type: Cigarette Cigarettes Per Day: 10.0 Second Hand Smoke Exposure: No Substance Use Type: Marijuana service: No Current occupational status: employed 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 Review of Systems Const Denies chills and Denies fever(s) Card Denies chest pain, Denies dyspnea and Denies dyspnea on exertion Resp Denies cough, Denies dyspnea and Denies dyspnea on exertion GI Denies hematochezia and Denies change in bowel habits Denies hematuria Musc Denies back pain and Denies limited range of motion Neuro Denies focal weakness and Denies convulsions Psych Denies depression and Denies mood swings Physical Exam Vital Signs: Last Vital Signs Pulse 88 07/20/23 14:52 BP 135/73 07/20/23 14:52 Const General: comfortable and no acute distress Resp Effort & Inspection: normal respiratory effort Cardio Rate: regular rate GI Other: Rectal exam - large external hemorrhoid on the left side, nonthrombosed but mildly swollen and tender, no new fistula, no no induration, no cellulitis, no discharge from the old fistula site on the right Assessment & Plan Assessment & Plan (1) External hemorrhoids with complication: Code(s): K64.4 - Residual hemorrhoidal skin tags Plan: She has an external hemorrhoid on the left side with some pain and tenderness. There is no thrombosis at this time. This is mildly swollen. I told her to continue doing hot Sitz baths. She can use lidocaine cream which she still has at home. I will prescribe her Percocet for pain for this weekend I reviewed with her the option of proceeding with hemorrhoidectomy down the line. I discussed the technique of this procedure as well as the risks, benefits, and alternatives. She has not ready to decide at this time Medications: Refilled oxycodone-acetaminophen 5-325 mg (Percocet) Partial Fill upon patient request. 1 tab PO Q4-6H PRN 10 tabs 0RF pain Coding Level of Care Code Est Pt Level 3 (60194) Diagnoses External hemorrhoids with complication K64.4
[2023-07-20 14:52] VITALS: BP 135/73; PULSE 88
== END 2023-07-20 14:56 | disposition home or self-care (01) ==
PROVIDERS: PCP Internal Medicine; Visit Provider Surgery
DX: K64.4 Residual hemorrhoidal skin tags (principal)
CPT/HCPCS: 99213

== ENCOUNTER → 2023-07-20 14:46 | Outpatient (BNVA) | payer OTHER, SELFPAY | PROVIDERS: PCP Internal Medicine; Visit Provider Surgery | DX: K64.4 Residual hemorrhoidal skin tags (principal) | CPT/HCPCS: 99212 ==

== ENCOUNTER 2023-08-16 10:22 | Outpatient (AMB) | payer OTHER, SELFPAY ==
--- NOTE | 2023-08-16 10:25 | MHC.OFFVIS ---
Intake Vital Signs 08/16/23 10:31 BP 135/58 L Blood Pressure Location Rt brachial Position Sitting Pulse 70 Intake Visit Reasons: Anal fistula, 1-1/2 month follow up Intake Note: This patient presents for a one month follow-up for anal fistula. Pt c/o; reports notices symptoms get worse when her menstrual cycle is going to start, report pain, swelling, discomfort. Survey Crew Chief Required: No Accompanied by: Self / Same As Patient Allergies adhesive tape [ADHESIVE TAPE] Allergy (Intermediate, Verified 08/16/23 10:31) RASH adhesive Allergy (Unknown, Uncoded 08/16/23 10:31) rash cortisone injection Allergy (Uncoded 08/16/23 10:31) Swelling HPI Anal fistula, 1-1/2 month follow up HPI Details She is here for follow-up for history of anal fistula. I last saw her in the office last 07/20/2023 for anal pain. There was no induration or any fluctuance or redness at that time. She has had no problems so far. She admits to feeling some occasional sharp pains on the area. She does have endometriosis and says that she has pain with this in the pelvis before her periods. She denies any new drainage. [facility] Medical History Buttock pain External hemorrhoids with complication Smoker Depression Hypothyroidism Surgical History Hx of surgical procedure (~03/23/23) Hx of surgical procedure History of anal fissures Status post de Quervain's release surgery History of surgery on right wrist Hx of tonsillectomy History of incision and drainage History of bilateral oophorectomy Family History Paternal Aunt Breast CA Paternal Aunt Breast CA Social History Household Members: Family and Children Housing: House Patient Tobacco Use Status: Current everyday Tobacco user Tobacco use type: Cigarette Cigarettes Per Day: 10.0 Second Hand Smoke Exposure: No Substance Use Type: Marijuana service: No Current occupational status: employed 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 Review of Systems Const Denies chills and Denies fever(s) Card Denies chest pain, Denies dyspnea and Denies dyspnea on exertion Resp Denies cough, Denies dyspnea and Denies dyspnea on exertion GI Denies hematochezia and Denies change in bowel habits Denies hematuria Musc Denies back pain and Denies limited range of motion Neuro Denies focal weakness and Denies convulsions Psych Denies depression and Denies mood swings Physical Exam Const General: comfortable and no acute distress Resp Effort & Inspection: normal respiratory effort Cardio Rate: regular rate GI Other: Rectal exam - old fistula site is now well healed, no new induration, no tenderness, no fluctuance, no redness, no drainage; large external hemorrhoid on the left nontender Palpation (GI): Soft to palpation Assessment & Plan Assessment & Plan (1) Anal fistula: Code(s): K60.3 - Anal fistula Plan: The old fistula tract is now well healed after treatment with a cutting seton. She does have a large external hemorrhoid on the left side as well. I told her that if this continues to bother in the future, there is the option of hemorrhoidectomy for this. She can therefore come back on a p.r.n. basis. Coding Level of Care Code Est Pt Level 2 (35190) Diagnoses Anal fistula K60.3
[2023-08-16 10:31] VITALS: BP 135/58; PULSE 70
== END 2023-08-16 10:35 | disposition home or self-care (01) ==
PROVIDERS: PCP Internal Medicine; Visit Provider Surgery
DX: K60.3 Anal fistula (principal)
CPT/HCPCS: 99212

== ENCOUNTER → 2023-08-16 10:22 | Outpatient (BNVA) | payer OTHER, SELFPAY | PROVIDERS: PCP Internal Medicine; Visit Provider Surgery | DX: K60.3 Anal fistula (principal) | CPT/HCPCS: 99212 ==

== ENCOUNTER 2023-08-27 08:53 | Outpatient (AMB) | payer OTHER, SELFPAY ==
--- NOTE | 2023-08-27 09:05 | MHC.OFFVIS ---
Intake Vital Signs 08/27/23 09:11 BP 135/69 Blood Pressure Location Rt brachial Position Sitting Pulse 74 Intake Visit Reasons: recurrent pilonidal abscess Intake Note: This patient presents for a recurrent abscess. Patient c/o; reports excruciating pain, reports gets worse when laying down. Patch Machine Operator Required: No Accompanied by: Self / Same As Patient Allergies adhesive tape [ADHESIVE TAPE] Allergy (Intermediate, Verified 08/27/23 09:16) RASH adhesive Allergy (Unknown, Uncoded 08/27/23 09:16) rash cortisone injection Allergy (Uncoded 08/27/23 09:16) Swelling Medication List - Last Reconciled 08/27/23 by Dago De Souza MD amoxicillin-pot clavulanate 875-125 mg 1 tab PO BID fluoxetine 1 cap PO DAILY ibuprofen 600 mg PO Q6H PRN ibuprofen 600 mg PO Q8H PRN ibuprofen 600 mg PO Q6H PRN levothyroxine 137 mcg PO MOTUWETHFRSA@0630 lidocaine 5% 1 appl topical TID PRN loratadine (Claritin) 10 mg PO DAILY menthol-zinc oxide 0.44-20.6 % (Calmoseptine) 1 appl topical QID PRN ondansetron HCl 4 mg PO Q8H PRN 5 days oxycodone-acetaminophen 5-325 mg (Percocet) 1 tab PO Q4-6H PRN oxycodone-acetaminophen 5-325 mg (Percocet) 1 tab PO Q4-6H PRN HPI recurrent pilonidal abscess HPI Details She is here for follow-up for her pain on the right buttock area near the anus. She says that seemed to have been severe over the weekend. She is concerned about another abscess. She thought that she felt a ?bump on the area?. She denies any fever or chills. She denies any new drainage. [facility] Medical History Buttock pain External hemorrhoids with complication Smoker Depression Hypothyroidism Surgical History Hx of surgical procedure (~03/23/23) Hx of surgical procedure History of anal fissures Status post de Quervain's release surgery History of surgery on right wrist Hx of tonsillectomy History of incision and drainage History of bilateral oophorectomy Family History Paternal Aunt Breast CA Paternal Aunt Breast CA Social History Household Members: Family and Children Housing: House Patient Tobacco Use Status: Current everyday Tobacco user Tobacco use type: Cigarette Cigarettes Per Day: 10.0 Second Hand Smoke Exposure: No Substance Use Type: Marijuana service: No Current occupational status: employed 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 Review of Systems Const Denies chills and Denies fever(s) Card Denies chest pain, Denies dyspnea and Denies dyspnea on exertion Resp Denies cough, Denies dyspnea and Denies dyspnea on exertion GI Denies hematochezia and Denies change in bowel habits Denies hematuria Musc Denies back pain and Denies limited range of motion Neuro Denies focal weakness and Denies convulsions Psych Denies depression and Denies mood swings Physical Exam Vital Signs: Last Vital Signs Pulse 74 08/27/23 09:11 BP 135/69 08/27/23 09:11 Const General: no acute distress Resp Effort & Inspection: normal respiratory effort Cardio Rate: regular rate GI Other: Rectal exam - no palpable mass, no induration, no redness anywhere near the perianal area including the right buttock where she says she thought she felt a bump. She says she can not feel it at this time. Palpation (GI): Soft to palpation Assessment & Plan Assessment & Plan (1) Buttock pain: Code(s): M79.18 - Myalgia, other site Plan: She describes this right buttock pain that she thought was severe over the weekend. She was very concerned about another abscess or fistula. Current exam does not reveal any induration, localized tenderness, mass, or redness. There has no new sinus. The previous fistula tract is dry and there is no note of recurrence. She does have an hemorrhoid on the left posterior area. Since we can not find any suggestion of an abscess, I am going to send her for follow-up CT scan. She is concerned because of her previous fistula We will facilitate her CT scan for her in view of her pain. Orders: Orders CT pelvis w IV con Today M79.18 - Myalgia, other site Creatinine Today M79.18 - Myalgia, other site Blood Urea Nitrogen Today M79.18 - Myalgia, other site Medications: New ibuprofen 600 mg PO Q8H PRN 20 tabs 0RF pain Coding Level of Care Code Est Pt Level 3 (83589) Diagnoses Buttock pain M79.18
[2023-08-27 09:11] VITALS: BP 135/69; PULSE 74
== END 2023-08-27 09:43 | disposition home or self-care (01) ==
PROVIDERS: PCP Internal Medicine; Visit Provider Surgery
DX: M79.18 Myalgia, other site (principal)
CPT/HCPCS: 99213

== ENCOUNTER 2023-08-27 08:53 | Outpatient (REF) | payer OTHER, SELFPAY ==
[2023-08-27 11:31] LABS: Blood Urea Nitrogen 12 mg/dL (9-16); Estimated Glomerular Filt Rate > 60
== END 2023-08-27 08:54 | disposition home or self-care (01) ==
LOC: HO.LAB 08:53
PROVIDERS: PCP Internal Medicine; Visit Provider Surgery
DX: M79.18 Myalgia, other site (principal)
CPT/HCPCS: 36415; 82565; 84520; 99212

== ENCOUNTER 2023-08-29 13:13 | Outpatient (REF) | payer OTHER, SELFPAY ==
--- NOTE | ~2023-08-29 | CT_ITS ---
EXAMINATION: CT PELVIS WITH CONTRAST CLINICAL INFORMATION: Mild degenerative. COMPARISON: None available. TECHNIQUE: Helical scanning was performed with submillimeter collimation through the pelvis with the use of oral contrast and during bolus intravenous injection of 85 mL of Omnipaque 350 intravenous contrast. Sagittal and coronal multiplanar 2-D reconstructions were obtained. This CT examination was performed using dose optimization techniques as appropriate, variously including the following: *Automated exposure control *Adjustment of mA and/or kV according to patient size (this includes techniques or standardized protocols for targeted exams where dose is matched to indication/reason for exam; i.e. extremities or head) *Use of iterative reconstruction technique DLP: 599 mGy-cm FINDINGS: PELVIS: There is scattered scattered stool and gas in colon without distention. The small bowel loops are unremarkable. Appendix is normal caliber. No inflammatory process, free air or free fluid. There is a left ovary and 1.9 cm cyst. There is a irregular shaped large or multiple smaller cysts in the right ovary with the largest length of 3.3 cm. 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 The fluid measures 21 Hounsfield units. There is probably minimal fluid in the cervical canal as well. Bone windows reveal no gross bony abnormality. SI joints are symmetrical. Bilateral hip joints are symmetrical and normal. CT/CT pelvis w IV con IMPRESSION: Bilateral ovarian cysts. 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 There is minimal fluid in the cervix as well. Small phleboliths are seen in the pelvis
[2023-08-29] MEDS: iohexoL 350 MG/ML 100 ML INFUS..BTL 85 ML IV (13:43)
== END 2023-08-29 13:14 | disposition home or self-care (01) ==
LOC: HO.CT 13:13
PROVIDERS: PCP Internal Medicine; Visit Provider Surgery
DX: M79.18 Myalgia, other site (principal)
CPT/HCPCS: 72193; Q9967

== ENCOUNTER 2023-12-06 11:16 | Outpatient (AMB) | payer OTHER, SELFPAY ==
--- NOTE | 2023-12-06 11:19 | MHC.OFFVIS ---
Vital Signs 12/06/23 11:27 Weight 201 lb BP 125/67 Blood Pressure Location Rt brachial Position Sitting Pulse 64 Intake Visit Reasons: left thigh lipoma Intake Note: This patient presents for an assessment for left thigh lipoma. Patient c/o; reports pain. Urban Gardening Specialist Required: No Accompanied by: Self / Same As Patient Allergies adhesive tape [ADHESIVE TAPE] Allergy (Intermediate, Verified 12/06/23 11:19) RASH adhesive Allergy (Unknown, Uncoded 12/06/23 11:19) rash cortisone injection Allergy (Uncoded 12/06/23 11:19) Swelling Medication List - Last Reconciled 12/06/23 by Dago De Souza MD amoxicillin-pot clavulanate 875-125 mg 1 tab PO BID fluoxetine 1 cap PO DAILY ibuprofen 600 mg PO Q6H PRN ibuprofen 600 mg PO Q8H PRN ibuprofen 600 mg PO Q6H PRN levothyroxine 137 mcg PO MOTUWETHFRSA@0630 lidocaine 5% 1 appl topical TID PRN loratadine (Claritin) 10 mg PO DAILY menthol-zinc oxide 0.44-20.6 % (Calmoseptine) 1 appl topical QID PRN ondansetron HCl 4 mg PO Q8H PRN 5 days oxycodone-acetaminophen 5-325 mg (Percocet) 1 tab PO Q4-6H PRN oxycodone-acetaminophen 5-325 mg (Percocet) 1 tab PO Q4-6H PRN tramadol 50 mg PO TID PRN HPI HPI left thigh lipoma: Details: She is here to have her thigh lipoma check. She says that about a few days ago, this seemed to become swollen and bigger with irritation She was therefore told by her donation specialist to see a surgeon for this She says that these lipomas seemed to be much smaller now and she denies any pain. She denies any skin changes. REPLACED BY [facility] Medical History (Updated 12/06/23 @ 11:49 by Dago De Souza MD) Lipoma Buttock pain External hemorrhoids with complication Smoker Depression Hypothyroidism Surgical History Hx of surgical procedure (~03/23/23) Hx of surgical procedure History of anal fissures Status post de Quervain's release surgery History of surgery on right wrist Hx of tonsillectomy History of incision and drainage History of bilateral oophorectomy Family History Paternal Aunt Breast CA Paternal Aunt Breast CA Social History Household Members: Family and Children Housing: House Patient Tobacco Use Status: Current everyday Tobacco user Tobacco use type: Cigarette Cigarettes Per Day: 10.0 Second Hand Smoke Exposure: No Substance Use Type: Marijuana service: No Current occupational status: employed 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 Review of Systems Const Denies chills and Denies fever(s) Card Denies chest pain, Denies dyspnea and Denies dyspnea on exertion Resp Denies cough, Denies dyspnea and Denies dyspnea on exertion GI Denies hematochezia and Denies change in bowel habits Denies hematuria Musc Denies back pain and Denies limited range of motion Neuro Denies focal weakness and Denies convulsions Psych Denies depression and Denies mood swings Physical Exam Vital Signs: Last Vital Signs Pulse 64 12/06/23 11:27 BP 125/67 12/06/23 11:27 Const General: comfortable and no acute distress Resp Effort & Inspection: normal respiratory effort GI Palpation (GI): Soft to palpation Extrem Other: Left medial thigh is note of a small lipomatous mass, about 1 cm, non inflamed nontender Assessment & Plan Assessment & Plan (1) Lipoma: Code(s): D17.9 - Benign lipomatous neoplasm, unspecified Category: Medical Plan She has this small lipomatous mass on the left medial thigh. She wanted this checked as this seemed to be swollen 2 weeks ago. She denies any pain or tenderness at this time. There is no evidence of any infection or skin changes I did explain to her the option of excision under local anesthesia. She says she wants to hold off on this for now. She says she will come back to the office on a p.r.n. basis. Coding Level of Care Code Est Pt Level 3 (14305) Diagnoses Lipoma D17.9
[2023-12-06 11:27] VITALS: BP 125/67; PULSE 64
== END 2023-12-06 11:47 | disposition home or self-care (01) ==
PROVIDERS: PCP Internal Medicine; Visit Provider Surgery
DX: D17.9 Benign lipomatous neoplasm, unspecified (principal)
CPT/HCPCS: 99213

== ENCOUNTER → 2023-12-06 11:16 | Outpatient (BNVA) | payer OTHER, SELFPAY | PROVIDERS: PCP Internal Medicine; Visit Provider Surgery | DX: D17.9 Benign lipomatous neoplasm, unspecified (principal) | CPT/HCPCS: 99212 ==

== ENCOUNTER 2024-01-21 15:26 | Outpatient (AMB) | payer OTHER, SELFPAY ==
--- NOTE | 2024-01-21 15:28 | A.OFFVIS_ITS ---
Vital Signs 01/21/24 15:35 Weight 200 lb BP 126/62 Blood Pressure Location Rt brachial Position Sitting Pulse 73 Intake Visit Reasons: discharge Intake Note: This patient presents for rectal discharge and pain. Pt c/o; reports pain, ? infection, rectal discharge. Cdl B Driver Required: No Accompanied by: Child Allergies adhesive tape [ADHESIVE TAPE] Allergy (Intermediate, Verified 01/21/24 15:36) RASH adhesive Allergy (Unknown, Uncoded 01/21/24 15:36) rash cortisone injection Allergy (Uncoded 01/21/24 15:36) Swelling Medication List - Last Reconciled 01/21/24 by Dago De Souza MD amoxicillin-pot clavulanate 875-125 mg 1 tab PO BID fluoxetine 1 cap PO DAILY ibuprofen 600 mg PO Q6H PRN ibuprofen 600 mg PO Q8H PRN ibuprofen 600 mg PO Q6H PRN levothyroxine 137 mcg PO MOTUWETHFRSA@0630 lidocaine 5% 1 appl topical TID PRN loratadine (Claritin) 10 mg PO DAILY menthol-zinc oxide 0.44-20.6 % (Calmoseptine) 1 appl topical QID PRN ondansetron HCl 4 mg PO Q8H PRN 5 days oxycodone-acetaminophen 5-325 mg (Percocet) 1 tab PO Q4-6H PRN oxycodone-acetaminophen 5-325 mg (Percocet) 1 tab PO Q4-6H PRN tramadol 50 mg PO TID PRN HPI HPI discharge: Details: She is well known to me for history of anal fistula and treated with a seton in the past. She says that she had noticed a little bit of drainage from the old fistula site 3 days ago. She says that this had resolved. She was worried about this so she called for follow-up today. She also has known endometriosis and is scheduled to have a hysterectomy late next month. She says that she seems to have pain in the area of her perineum and perianal area as well with her periods. [facility] Medical History Lipoma Buttock pain External hemorrhoids with complication Smoker Depression Hypothyroidism Surgical History Hx of surgical procedure (~03/23/23) Hx of surgical procedure History of anal fissures Status post de Quervain's release surgery History of surgery on right wrist Hx of tonsillectomy History of incision and drainage History of bilateral oophorectomy Family History Paternal Aunt Breast CA Paternal Aunt Breast CA Social History Household Members: Family and Children Housing: House Patient Tobacco Use Status: Current everyday Tobacco user Tobacco use type: Cigarette Cigarettes Per Day: 10.0 Second Hand Smoke Exposure: No Substance Use Type: Marijuana service: No Current occupational status: employed 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 Review of Systems Const Denies chills and Denies fever(s) Card Denies chest pain, Denies dyspnea and Denies dyspnea on exertion Resp Denies cough, Denies dyspnea and Denies dyspnea on exertion GI Denies hematochezia and Denies change in bowel habits Denies hematuria Musc Denies back pain and Denies limited range of motion Neuro Denies focal weakness and Denies convulsions Psych Denies depression and Denies mood swings Physical Exam Const General: comfortable and no acute distress Resp Effort & Inspection: normal respiratory effort Cardio Rate: regular rate GI Other: Rectal exam - no area of induration or sinus, no suggestion of a recurrent fistula ; she does have chronically sclerosed external hemorrhoids on the left, no tenderness, no discharge Palpation (GI): Soft to palpation Assessment & Plan Assessment & Plan (1) Anal fistula: Code(s): K60.3 - Anal fistula Category: Medical Plan: She has a history of anal fistula treated with a seton. The seton had been removed last May,. She was worried about some drainage from the area he days ago. Current exam does not reveal any induration. I did not see any sinus or any suggestion of a recurrent fistula She does describe some pain in the area as well related to her periods. She has known endometriosis. She is scheduled to have a hysterectomy done because of this next month I will see her in the office again after her hysterectomy to see how she is doing. She is comfortable with the plan. Coding Level of Care Code Est Pt Level 3 (96858) Diagnoses Anal fistula K60.3
[2024-01-21 15:35] VITALS: BP 126/62; PULSE 73
== END 2024-01-21 15:49 | disposition home or self-care (01) ==
PROVIDERS: PCP Internal Medicine; Visit Provider Surgery
DX: K60.3 Anal fistula (principal)
CPT/HCPCS: 99213

== ENCOUNTER → 2024-01-21 15:26 | Outpatient (BNVA) | payer OTHER, SELFPAY | PROVIDERS: PCP Internal Medicine; Visit Provider Surgery | DX: K60.3 Anal fistula (principal) | CPT/HCPCS: 99212 ==

== ENCOUNTER 2024-05-19 09:28 | Outpatient (AMB) | payer OTHER, SELFPAY ==
--- NOTE | 2024-05-19 09:31 | MHC.OFFVIS ---
Vital Signs 05/19/24 09:34 Height 5 ft 5.5 in Weight 198 lb 6.656 oz BMI 32.5 BP 98/60 Blood Pressure Location Lt brachial Position Sitting Pulse 63 Intake Visit Reasons: Crohn's, GERD Intake Note: Francine presents in the office as a new patient for Crohns, GERD. CC: She has not officially been diagnosed but she has had a lot of abssesses - she has had digestive issues her entire life. Colonoscopy at 13 when she lived in [place]. Apartment Manager Required: No Allergies adhesive tape [ADHESIVE TAPE] Allergy (Intermediate, Verified 01/21/24 15:36) RASH adhesive Allergy (Unknown, Uncoded 01/21/24 15:36) rash cortisone injection Allergy (Uncoded 01/21/24 15:36) Swelling HPI Comments Details: 43 y.o F with PMH of endometriosis s/p hysterectomy Apr 2024, who is here for GI issues as below. Reports hx of clarisa-rectal abscess October 2021 and anal fistula - seton removed 2022 and a question has been raised for underlying crohns. Reports lonstanding hx of central abd pain and LLQ assoc with loose stools 2-3 times a day for as long as she can remember. No blood in stool. No nighttime sx. Urgency + but no incontinence. Past hx of anal intercourse. Pt also reports intolerance to gluten and dairy. Has been checked for celiac in the past. No fam hx of IBD or colon cancer. PFSH Medical History Lipoma Buttock pain External hemorrhoids with complication Smoker Depression Hypothyroidism Surgical History Hx of colonoscopy Hx of total hysterectomy Hx of surgical procedure (~03/23/23) Hx of surgical procedure History of anal fissures Status post de Quervain's release surgery History of surgery on right wrist Hx of tonsillectomy History of incision and drainage History of bilateral oophorectomy Family History Paternal Aunt Breast CA Paternal Aunt Breast CA Social History Household Members: Family and Children Housing: House Patient Tobacco Use Status: Current everyday Tobacco user Tobacco use type: Cigarette Cigarettes Per Day: 10.0 Second Hand Smoke Exposure: No Substance Use Type: Marijuana service: No Current occupational status: employed 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 Review of Systems Const All systems reviewed & are unremarkable except as noted in HPI and below Physical Exam Vital Signs: Last Vital Signs Pulse 63 05/19/24 09:34 BP 98/60 05/19/24 09:34 BMI result Body Mass Index 32.5 No apparent distress Nonicteric Abdomen soft, nondistended, healing scars from trocars Alert and oriented x3, normal gait Assessment & Plan Assessment & Plan (1) Central abdominal pain: Code(s): R10.9 - Unspecified abdominal pain Category: Medical (2) Chronic diarrhea: Code(s): K52.9 - Noninfective gastroenteritis and colitis, unspecified Category: Medical (3) Abscess, perirectal: Code(s): K61.1 - Rectal abscess Category: Medical (4) Anal fistula: Code(s): K60.3 - Anal fistula Category: Medical Plan Ddx include IBD, celiac, SIBO, malabsorption, food intolerance, symptomatic gallstones. Plan: - Labs ordered - US abd - Hyoscyamine PRN for sympatomatic management - If above w/up neg, low threshold to empirically try sucraid vs send to bottle and glass inspector for allergy testing Will contact pt for actionable findings on work up above, otherwise follow up in 3 months Orders: Orders Complete Blood Count no Diff Today K52.9 - Noninfective gastroenteritis and colitis, unspecified Calprotectin, Fecal Today K52.9 - Noninfective gastroenteritis and colitis, unspecified C Reactive Protein Today K52.9 - Noninfective gastroenteritis and colitis, unspecified Transglutaminase IgA Today K52.9 - Noninfective gastroenteritis and colitis, unspecified Immunoglobulin A Today K52.9 - Noninfective gastroenteritis and colitis, unspecified IRON PROFILE Today K52.9 - Noninfective gastroenteritis and colitis, unspecified Ferritin Today K52.9 - Noninfective gastroenteritis and colitis, unspecified Vitamin B12 and Folate Today K52.9 - Noninfective gastroenteritis and colitis, unspecified TSH reflex Free T4 Today K52.9 - Noninfective gastroenteritis and colitis, unspecified Vitamin D 25-OH Total Today K52.9 - Noninfective gastroenteritis and colitis, unspecified US abdomen complete Today R10.9 - Unspecified abdominal pain Medications: New hyoscyamine sulfate 0.125 mg PO BID-QID 60 days PRN 60 tabs 0RF abd pain Coding Level of Care Code New Pt Level 4 (99791) Diagnoses Central abdominal pain R10.9 Chronic diarrhea K52.9 Abscess, perirectal K61.1 Anal fistula K60.3
[2024-05-19 09:34] VITALS: BP 98/60; PULSE 63; BMI 32.5
== END 2024-05-19 10:18 | disposition home or self-care (01) ==
PROVIDERS: PCP Internal Medicine; Visit Provider Internal Medicine
DX: K52.9 Noninfective gastroenteritis and colitis, unspecified (principal); K61.1 Rectal abscess
CPT/HCPCS: 99204

== ENCOUNTER → 2024-05-19 09:28 | Outpatient (BNVA) | payer OTHER, SELFPAY | PROVIDERS: PCP Internal Medicine; Visit Provider Internal Medicine | DX: R10.9 Unspecified abdominal pain (principal); K52.9 Noninfective gastroenteritis and colitis, unspecified; K61.1 Rectal abscess | CPT/HCPCS: 99202 ==

== ENCOUNTER 2024-05-29 11:09 | Outpatient (REF) | payer OTHER, SELFPAY ==
--- OUTSIDE RECORDS SUMMARY | 2024-05-29 11:14 | XMS_ITS | Continuity of Care Document ---
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 Name Role Phone Cait BerriosisidoroMelania gatica DO Primary Care Karishma simpson Encounter [facility] Date(s): 04/29/24 - 04/30/[address] [address]- Discharge Disposition: A-D/C Home Attending Physician: Arnold Gamez MD Admitting Physician: Arnold Gamez MD Referring Physician: Arnold Gamez MD Encounter Type: Disch Daystay Allergies, Adverse Reactions, Alerts Substance Criticality Severity Reaction Reaction Severity Status Adhesive Bandage RASH Act tessa Cats hives Active Other Environmental Allergy seasonal allergies-dust, trees, grass= coughing, sneezing, runny eyes Active Immunizations Given and Recorded Vaccine Date Status Refusal Reason influenza virus vaccine, inactivated 07/26/23 Melo rded influenza virus vaccine, inactivated 04/21/22 Melo rded influenza virus vaccine, inactivated 07/01/18 Melo rded influenza virus vaccine, inactivated 03/15/15 Melo rded influenza virus vaccine, inactivated 03/10/10 Melo rded tetanus/diphtheria/pertussis, acel(Tdap) 07/26/23 Recorded SARS-CoV-2 (COVID-19) mRNA BNT-162b2 vac 11/28/20 Recorded SARS-CoV-2 (COVID-19) mRNA BNT-162b2 vac 10/17/20 Recorded tetanus-diphtheria toxoids (Td) 03/10/14 Recorded Medications estradiol 2 mg oral tablet 1 tablet = 2 mg, By Mouth, Daily, # 90 tablet, 2 Refills, Maintenance, 04/30/24 6:49:00 AM EST, Tablet, [id number], Partial fill upon patient request if the prescription is for a schedule II opioid drug., 165.1, cm, 04/30/24 4:07:00 EST, Height, 89.4, kg, 04/29/24 12:19:00 EST, Dry Weight Start Date: 04/30/24 Stop Date: 01/25/25 Status: Ordered Quantity: 90.0 Unit: tablet Repeat number: 3 Flonase 0.05 mg/inh nasal spray 2, sprays, Nasal, Daily, # 16 Gm, 1 Refills Start Date: 02/26/08 Status: Ordered Quantity: 16.0 Unit: g Repeat number: 2 ibuprofen 200 mg oral tablet 600 mg, 3, tablet, By Mouth, 4 times a day, PRN, for 7 days, # 84 tablet, Refills 0, Tot. Refills 0, Acute 05/06/24 3:59:00 PM EST, for fever, 04/29/24 3:59:00 PM EST, Route to Pharmacy Electronically, [facility] #[id number], Partial fill upon patient request if the prescription is for a schedule II opioid drug., 165.1, cm, 04/29/24 12:19:00 EST, Height, 89.4, kg, 04/29/24 12:19:00 EST, Dry Weight Start Date: 04/29/24 Stop Date: 05/06/24 Status: Ordered Quantity: 84.0 Unit: tablet Repeat number: 1 levothyroxine 137 mcg (0.137 mg) oral capsule 1 capsule = 137 mcg, By Mouth, Daily in AM, 0 Refills, Maintenance, 03/30/20 2:42:00 PM EDT Start Date: 03/30/20 Status: Ordered Repeat number: 1 MiraLax oral powder for reconstitution = 17 Gm, By Mouth, Daily, for 10 days, dissolve in water before taking, # 527 Gm, 0 Refills, Acute 05/09/24 3:59:00 PM EST, 04/29/24 3:59:00 PM EST, REC Powder, [facility] #[id number], Partial fill upon patient request if the prescription is for a schedule II opioid drug., 17 Gm By Mouth Daily,x10 days, Instr:dissolve in water before taking, 165.1, cm, 04/29/24 12:19:00 EST, Height, 89.4, kg, 04/29/2412:19:00 EST, Dry Weight Start Date: 04/29/24 Stop Date: 05/09/24 Status: Ordered Quantity: 527.0 Unit: g Repeat number: 1 oxyCODONE 5 mg oral tablet 5 mg, 1, tablet, By Mouth, Every 6 hours, PRN, for 5 days, # 10 tablet, Refills 0, Tot. Refills 0, Acute 05/04/24 3:59:00 PM EST, as needed for pain, 04/29/24 3:59:00 PM EST, Route to Pharmacy Electronically, [facility]/pharm[facility] #[id number], Partial fill upon patient request if the prescription is for a schedule II opioid drug., 165.1, cm, 04/29/24 12:19:00 EST, Height, 89.4, kg, 04/29/24 12:19:00 EST, Dry Weight Start Date: 04/29/24 Stop Date: 05/04/24 Status: Ordered Quantity: 10.0 Unit: tablet Repeat number: 1 OxyCODONE IR Tablet 5 mg, Tablet, By Mouth, Every 4 hours, PRN for Pain , Severe, Routine, 04/29/24 4:27:00 PM EST Start Date: 04/29/24 Stop Date: 05/01/24 Status: Discontinued Repeat number: 1 senna - oral tablet 2 tablet, By Mouth, Daily at bedtime, PRN for constipation, for 7 days, # 80 tablet, 0 Refills, Acute 05/06/24 3:59:00 PM EST, 04/29/24 3:59:00 PM EST, Tablet, [facility] #[id number], Partial fill upon patient request if the prescription is for a schedule II opioid drug., 165.1, cm, 04/29/24 12:19:00 ES T, Height, 89.4, kg, 04/29/24 12:19:00 EST, Dry Weight Start Date: 04/29/24 Stop Date: 05/06/24 Status: Ordered Quantity: 80.0 Unit: tablet Repeat number: 1 simethicone 80 mg oral tablet, chewable 80 mg, 1, tablet, By Mouth, 3 times a day after meals and bedtime, for 7 days, # 90 tablet, Refills0, Tot. Refills 0, Acute 05/06/24 3:59:00 PM EST, 04/29/24 3:59:00 PM EST, Route to Pharmacy Electronically, [facility]/pharm[facility] #[id number], Partial fill upon patient request if the prescription is for a schedule II opioid drug., 165.1, cm, 04/29/24 12:19:00 EST, Height, 89.4, kg, 04/29/24 12:19:00 EST, Dry Weight Start Date: 04/29/24 Stop Date: 05/06/24 Status: Ordered Quantity: 90.0 Unit: tablet Repeat number: 1 ZyrTEC 10 mg oral tablet 1 tablet = 10 mg, By Mouth, Daily at bedtime, 0 Refills, Maintenance, 03/30/20 2:43:00 PM EDT Start Date: 03/30/20 Status: Ordered Repeat number: 1 Problem List Condition Confirmation Course Effective Dates Status Health St atus Informant Enlarged tonsils Confirmed Active Obese class I Confirmed Active Smoking Confirmed Active Results Radiology Reports * Exam Date Time Procedure Performing Provider Status 04/29/24 3:50 PM Abdomen AP Vaganek , Blade; Auth (V erified) Notes: (Abdomen AP) Reason For Exam: Counts: Sponges/Sharps/Instruments Protocol;Other: RESULT: XR Abdomen AP XR Abdomen AP 1 view INDICATION/CLINICAL QUESTION: Reason: Counts: Sponges Sharps Instruments Protocol; Clinical Question(s): Other:; Incorrect count COMPARISON: None FINDINGS: Normal bowel gas pattern. No evidence of obstruction. No evidence of pneumoperitoneum. No organomegaly, masses or calcifications. No acute bone findings. No evidence of radiopaque needles, radiopaque instruments, radiopaque gauze or abdominal As seen throughout the visualized portion of the abdomen and pelvis. A wet reading was called to the operating room to extension [id number] on 04/29/2024 at 1555 hours. IMPRESSION: No radiopaque needles, radiopaque instruments, radiopaque gauze or abdominal pain since our seen inthe abdomen and pelvis. Negative wet reading was called to the operating room to extension [id number] on 04/29/2024 at 1556 hours. WSN: [id number] Ordering Physician: Arnold Gamez MD Dictated By: Fernando Saavedra MD, V Dictated Date/Time: 04/29/24 3:56 pm Reviewed By: Fernando Saavedra MD, V Signed By: Fernando Saavedra MD, V Signed Date/Time: 04/29/24 3:56 pm Transcribed By: KUSUM Transcribed Date/Time: 04/29/24 3:53 pm Vital Signs Most recent to oldest [Reference Range]: 1 2 3 Height 165.10 cm (04/30/24 8:08 AM) 165.10 cm (04/30/24 3:57 AM) 165.10 cm (04/29/24 11:07 PM) Weight 89.4 kg (04/29/24 12:19 PM) 89.55 kg (04/25/24 3:59 PM) Oxygen Saturation [94-100 %] 97 % (04/30/24 8:08 AM) 96 % (04/30/24 3:57 AM) 94 % (04/29/24 11:07 PM) Pulse Rate [55-90 bpm] 68 bpm (04/30/24 8:08 AM) 69 bpm (04/30/24 3:57 AM) 71 bpm (04/29/24 11:07 PM) Body Mass Index [18.5-24.99 kg/m2] 32.8 kg/m2 *>HHI* (04/29/24 12:19 PM) 32.85 kg/m2 *>HHI* (04/25/24 3:59 PM) Blood Pressure [90-138/55-84 mm Hg] 114/80mm Hg (04/30/24 8:08 AM) 115/61mm Hg (04/30/24 3:57 AM) 110/59mm Hg (04/29/24 11:07 PM) Respiratory Rate [16-30 br/min] 20 br/min (04/30/24 9:26 AM) 18 br/min (04/30/24 8:08 AM) 18 br/min (04/30/24 4:15 AM) Temperature [96.8-100.4 DegF] 97.8 DegF (04/30/24 8:08 AM) 98.1 DegF (04/30/24 3:57 AM) 98.0 DegF (04/29/24 11:07 PM) Liters per Minute 6 L/min (04/29/24 4:00 PM) Mode of Delivery (Oxygen) Room air (04/30/24 8:08 AM) Room air (04/30/24 3:57 AM) Room air (04/29/24 11:07 PM) Blood pressure sites Arm, left (04/30/24 3:57 AM) Arm, left (04/29/24 11:07 PM) Arm, left (04/29/24 12:19 PM) Temperature Route Oral (04/30/24 8:08 AM) Oral (04/30/24 3:57 AM) Oral (04/29/24 11:07 PM) Dry Weight 89.4 kg (04/29/24 12:19 PM) 89.55 kg (04/25/24 3:59 PM) Weight Obtained Via Standing scale (04/29/24 12:19 PM) Patient/family stated (04/25/24 3:59 PM) Dry Weight Obtained Via Standing scale (04/29/24 12:19 PM) Patient/family stated (04/25/24 3:59 PM) Social History Social History Type Response Smoking Status Never smoker entered on: 05/21/17 Sex Sex Representation Female (finding) History and physical note * Event Display: History and Physical Hospital Authored Date: * Event Display: History and Physical Hospital Authored Date: Hospital Progress note * Mercedes Hagen MD: PERFORM Event Display: Progress Note Hospital Authored Date: Patient: ??FRANCINE JARAMILLO ? Age:??43 Years?Sex:??Female?:??1980?? Subjective Francine is doing well at this time. Pain is a 5/10, reports the medications are helping. Ate some toast and did not experience any nausea or vomiting. Has been ambulating and voiding. Having some right shoulder pain but improved with meds. Minimal vaginal bleeding.?? Review of Systems No fever or chills. No chest pain. No SOB. Physical Exam Vitals & Measurements T:??98.0?F?? HR:??71??(Peripheral)?? RR:??20?? BP:??110/59?? SpO2:??94%?? HT:??165.10??cm?? WT:??89.4??kg?? BMI:??32.8?? Constitutional:??No acute distress, resting comfortably. Respiratory:??Normal work of breathing. Lungs clear to auscultation bilaterally. Cardiovascular:??Regular rate and rhythm, no murmurs.? Abdomen/GI:??Soft, non-distended. Mildly tender. No guarding, no rebound tenderness.??Laparoscopic incisions closed with Prolene, no surrounding erythema or induration,??umbilical site??covered with small pressure??dressing, which is clean and dry. Gynecologic:??Scant blood on pad. Extremities:??No calf tenderness or pitting edema. SCDs on and??activated. Assessment/Plan Assessment:??43yo on POD0 s/p uncomplicated LAVH-BSO. Doing well at this time, no acute concerns. Vitals wnl and exam is reassuring. Anticipate discharge in the morning ?? Postoperative state (Z98.890):? Diet: regular Pain: tylenol, ibuprofen, oxycodone Bowel: Simethicone, miralax,??senna s/p barajas ?? Surgical menopause (E89.40):? Estradiol 0.1mg q72 hrs prescribed ?? Intake and Output Intake and Output Results?? This visit (24 hour periods starting at 07:00 EST)? 04/29/24 *?? 04/28/24?? 04/27/24?? Total Summary?Intake mL?? 100?? --?? --?Output mL?? --?? --?? --?Fluid Balance ?? 100?? --?? --?? Intake (1)?Acetaminophen mL?? 100?? --?? --?Total?? 100?? --?? --?? Output (0)? Counts (0)? * This column has not completed the indicated time period.?? * Zayda Israel RN: PERFORM, MODIFY, SIGN, VERIFY Event Display: Progress Note Hospital Authored Date: Patient: FRANCINE JARAMILLO Age: 43 years Sex: Female : 1980 Associated Diagnoses: None Author: Zayda Israel RN Findings Narrative/Incidental Alert and oriented x4. Main complaint of 10/10 abdominal pain. Abdomen: soft, very tender and postive BSX4. No abdomianl distension. Vaginal pad with scant amount of stain blood, no blood clot noted.No complaint of nausea and dizziness. Medicated with scheduled Tylenol 975mg, ibuprohen 600mg without relief. PRN xoycodone 5mg given, Will reassess pain. Barajas cath draining clear yellow urine without sediment. 2129: Ambulated on the hallway holding the IV pole with RN guided on her side, gait steady. Complained of mild weakness, and slight light headedness. Pt was taken to the bathroom and barajas cath removed. Barajas output was 400cc clear yellow urine. Tolerated removal well. Has an underwear with pads. Complaining of right shoulder pain and 6/10 abdominal pain. Has no pain med due now. Covering pager paged for pain medication. Compression boot applied. Tolerating oral fluid well. Incentive spirometerbrought to bedside and it use explained. called carlson within reach, encouraged to call nursing stafffor all ambulation during the shift for supervision. WIll continue to monitor for acute changes. . Note * Dorothea Salgado RN: PERFORM Event Display: Discharge/Transfer Note Hospital Authored Date: Nursing Discharge Note Entered On: 04/30/2024 10:12 EST Performed On: 04/30/2024 10:12 EST by Dorothea Salgado RN Nursing Discharge Note 2 Discharge Time : 04/30/2024 10:12 EST Discharge Level of Care at Discharge : Home/Residential/Foster Care Patient Left Unit Via : Ambulatory Patient Accompanied Off Unit with : Significant other DC Instructions Provided & Signed by Pt : Yes Patient Understands D/C Instructions : Yes Patient Instructions Discharge Signed : Yes Did Pt have Specialty Bed or Wound Vac : No Dorothea Salgado RN - 04/30/2024 10:12 EST * Toby Murillo MD: PERFORM Event Display: Discharge/Transfer Note Hospital Authored Date: [id number] Patient: ??FRANCINE JARAMILLO ? Age:??43 Years?Sex:??Female?:??1980?? Admit Date Admission Date: 04/29/2024 Discharge Date 04/30/24 Discharge Diagnoses Postoperative state, 04/29/2024 Surgical menopause, 04/29/2024 [facility] Course Francine??is a 43??year old who underwent a scheduled??LAVH/BSO which was uncomplicated. She remained overnight for monitoring and was discharged home in good condition on POD1 ?? On day of discharge, patient reports she has voided s/p barajas, tolerated PO and ambulated. Her pain is well controlled with routine postop medications. She has not yet passed flatus.?? Objective/Physical Exam on Day of Discharge Vitals & Measurements T:??98.1?F?? HR:??69??(Peripheral)?? RR:??18?? BP:??115/61?? SpO2:??96%?? HT:??165.10??cm?? WT:??89.4??kg?? BMI:??32.8?? Constitutional:??No acute distress, resting comfortably. Respiratory:??Normal work of breathing.?? Abdomen/GI:??Soft, non-distended, no guarding, no rebound tenderness.??Port site??incisions closed with prolene suture, appear??clean,??dry and intact. Umbilical port covered with gauze without??strikethrough Gynecologic:??Minimal bleeding. Extremities:??No calf tenderness or edema. Skin:??No rash or jaundice. Neurological/Psychiatric:??Mood and affect congruent and stable.? Assessment/Plan Assessment:??Francine is a 43??year old who is POD1 from uncomplicated LAVH/BSO. She is meeting appropriate but early postoperative milestones and is appropriate for discharge home where she is aware to monitor for signs and symptoms of infection or bleeding. Postop visit scheduled with Dr. Gamez's office ?? D/w attending Dr. Gamez ?? Discharge Planning:? Surgical menopause (E89.40):??pt prescribed estradiol patches but prefers PO estradiol, will send ?? Postoperative state (Z98.890):??pain: motrin/tylenol/PRN oxycodone bowels: miralax, senna regular diet OK to continue home meds? Procedures Performed This Visit Hysterectomy Vaginal Bilateral Salpingo-Oophorectomy Laparoscopic Assist, Bilateral Discharge Medications ???Cetirizine (ZyrTEC 10 mg oral tablet)???Estradiol (estradiol 2 mg oral tablet)???Fluticasone Nasal (Flonase 0.05 mg/inh nasal spray)???Ibuprofen (ibuprofen 200 mg oral tablet)???Levothyroxine (levothyroxine 137 mcg (0.137 mg) oral capsule)???Oxycodone (oxyCODONE 5 mg oral tablet)???Polyethylene Glycol 3350 (MiraLax oral powder for reconstitution)???Senna (senna - oral tablet)???Simethicone (simethicone 80 mg oral tablet, chewable) Immunizations during Hospitalization Vaccine Date Status influenza virus vaccine, inactivated 07/26/2023 Recorded tetanus/diphtheria/pertussis, acel(Tdap) 07/26/2023 Recorded influenza virus vaccine, inactivated 04/21/2022 Recorded SARS-CoV-2 (COVID-19) mRNA BNT-162b2 vac 11/28/2020 Recorded SARS-CoV-2 (COVID-19) mRNA BNT-162b2 vac 10/17/2020 Recorded influenza virus vaccine, inactivated 07/01/2018 Recorded influenza virus vaccine, inactivated 03/15/2015 Recorded tetanus-diphtheria toxoids (Td) 03/10/2014 Recorded influenza virus vaccine, inactivated 03/10/2010 Recorded Patient Instructions Call the office with any concerns including:?? Vaginal bleeding more than spotting Fever of 100.4 or greater Foul-smelling vaginal discharge Redness/swelling/drainage at incision Difficulty or burning with urination?? Nausea and vomiting with inability to tolerate food,?? Pain not controlled by your prescribed medications Shortness of breath or chest pain. Swelling of the extremities. Dizziness or heart palpitations ?? Estrogen patch should be changed every 72 hours * Franco WATERMAN, Arnold S: PERFORM Event Display: Discharge/Transfer Note Hospital Authored Date: attending pt seen and chart reviewed, above note appreciated agree with assessment and plan * Dasia RN, Hui: MODIFY, PERFORM Event Display: Patient Education/Instruction Authored Date: Inpatient Adult Discharge Instructions. [address] [address] Name: FRANCINE JARAMILLO : 1980?? Visit: 04/29/2024 10:55?? Current Date: 04/30/2024 06:59 ?? Account: [id number]?? Inpatient Adult Discharge Instructions We would like to thank you for allowing us to assist you with your healthcare needs. The following includes patient education materials and information regarding your injury/illness. Our entire staffstrives to provide an excellent experience for our patients and their families. PLEASE ENSURE YOU FOLLOW-UP PER THE INSTRUCTIONS BELOW! ?? YOUR OPINION IS IMPORTANT TO US! Please complete the survey you may receive by mail or email. Your feedback will be used to make improvements to the healthcare experiences of our patients and their families. Surveys are administered by [employer] ?? If further treatment with your primary care physician or another doctor is recommended, it is important for you to keep the appointment. Call your primary care physician or return to the Emergency Department immediately if your condition worsens, fails to improve, or new symptoms develop. If you need to find a doctor, you can call [facility] [employer] Link for a referral at [phone] or toll free at [phone]) or log in to [email or web address].. ?? [facility], in keeping with [facility] guidance, no longer requires face masks for staff, patientsor visitors in most situations. Similiar to time spent indoors at other locations, there is the chance that you were exposed to repiratory viruses during your time with us (such as flu or COVID-19). If you develop symptoms concerning for a viral respiratory infection, please seek testing (and treatment if indicated) from your medical provider or home test kit. ?? You can view and manage your care through the patient portal or by using a health care bret of your choosing. [employer] is a website that allows you to securely view your medical information including your hospital discharge summary, office visit summaries, medications and follow-up visits. You can also request appointments, renew medications, and request access to your medical information using a health care bret of your choosing, or just ask a question. You can enroll at [email or web address] or register during your next office visit. You have been discharged from [facility], Patient Care Unit: D3B??. If you have any questions regarding these instructions, including results of studies pending, afteryou leave, please call us and we will be happy to assist you 08/01. [facility] Your Care Team Attending Physician Arnold Gamez MD?? Consulting Providers Arnold Gamez MD?? Discharging Providers Arnold Gamez MD Your Diagnosis Postoperative state Surgical menopause Tests Performed Below is a partial list of the tests performed during your hospitalization. You may have had other tests and procedures not included in this list. Please discuss all test results with your provider. CBC w/ Differential Type and Screen XR Abdomen AP CBC w/ Differential?? Pathology Tissue Request ()?? Type and Screen?? XR Abdomen AP?? Primary Care Provider Melania Winkler DO? Advance Directive Health Care Proxy on File No Discharge Vitals Temperature: 98.1 DegF Height: 165.1 cm Pulse Rate: 69 bpm Weight: 89.4 kg Respiratory Rate: 18 br/min Body Mass Index:??32.8 kg/m2??Critical Systolic Blood Pressure: 115 mm Hg Body surface area: 2.02 Diastolic Blood Pressure: 61 mm Hg ?? Oxygen Saturation: 96 % ?? Studies Pending All studies ordered during this hospital stay have been completed unless listed below. Please discuss all pending results with your provider listed above in these instructions. ?? Pathology Tissue Request ()?? What to do next Instructions From Your Doctor Call the office with any concerns including:?? Vaginal bleeding more than spotting Fever of 100.4 or greater Foul-smelling vaginal discharge Redness/swelling/drainage at incision Difficulty or burning with urination?? Nausea and vomiting with inability to tolerate food,?? Pain not controlled by your prescribed medications Shortness of breath or chest pain. Swelling of the extremities. Dizziness or heart palpitations ?? Estrogen patch should be changed every 72 hours ?? Orders? 04/30/24 6:39:00 EST?? Discharge Medications FRANCINE JARAMILLO :1980 Visit Date:04/29/2024 Medications: Please continue your medications until treatment is completed or stopped by your provider. Medications not listed below should be discontinued. Discuss any questions related to medications with your provider. What How Much When Instructions Next Dose New Estradiol (estradiol 2 mg oral tablet) 1 tab(s) Oral Daily Duration: 90 Days Refills: 2 Pickup at [facility] #[id number] 05/01 9AM New Polyethylene Glycol 3350 (MiraLax oral powder for reconstitution) 17 gram Oral Daily Duration: 10 Days dissolve in water before taking ?? Pickup at [facility] #2339 05/01 9AM New Senna (senna - oral tablet) 2 tab(s) Oral Daily at Bedtime as needed for for constipation Duration: 7 Days Pickup at [facility] #2339 04/30 9PM New Simethicone (simethicone 80 mg oral tablet, chewable) 1 tab(s) Oral 3 times a day after meals and bedtime Duration: 7 Days Pickup at [facility] #2339 04/30 Changed Ibuprofen (ibuprofen 200 mg oral tablet) 3 tab(s) Oral 4 times a day as needed for for fever Duration: 7 Days Pickup at [facility] #2339 Changed Oxycodone (oxyCODONE 5 mg oral tablet) 1 tab(s) Oral Every 6 hours as needed for as needed for pain Duration: 5 Days Pickup at [facility] #2339 10AM Unchanged Cetirizine (ZyrTEC 10 mg oral tablet) 1 tab(s) Oral Daily at Bedtime 04/30 9PM Unchanged Fluticasone Nasal (Flonase 0.05 mg/ inh nasal spray) 2 spray(s) Nasal Daily 05/01 9AM Unchanged Levothyroxine (levothyroxine 137 mcg (0.137 mg) oral capsule) 1 capsule Oral Daily in the morning 05/01 9AM Pharmacy Information [facility]/pharmacy #[id number]: [address], [place] [phone] Prescription Given During Visit Estradiol (estradiol 2 mg oral tablet) - 1 tablet = 2 mg, By Mouth, Daily, # 90 tablet, 2 Refills, [facility] #2339, [address] [place] [address] [phone]?? Ibuprofen (ibuprofen 200 mg oral tablet) - 3 tablet = 600 mg, By Mouth, 4 times a day, # 84 tablet,0 Refills, [facility] #2339, [address] [place] [address] [phone]?? Oxycodone (oxyCODONE 5 mg oral tablet) - 1 tablet = 5 mg, By Mouth, Every 6 hours, # 10 tablet, 0 Refills, [facility] #2339, [address] [place] [address] [phone]?? Polyethylene Glycol 3350 (MiraLax oral powder for reconstitution) - 17 Gm, By Mouth, Daily, # 527 Gm, 0 Refills, dissolve in water before taking, [facility] #2339, [address], [place] [phone]?? Senna (senna - oral tablet) - 2 tablet, By Mouth, Daily at bedtime, # 80 tablet, 0 Refills, [facility] #2339, [address] [place] [address] [phone]?? Simethicone (simethicone 80 mg oral tablet, chewable) - 1 tablet = 80 mg, By Mouth, 3 times a day after meals and bedtime, # 90 tablet, 0 Refills, [facility]/pharm[facility] #2339, [address] [place] [phone]?? Laboratory Results Below is a partial list of the most recent Laboratory test results done prior to this discharge. You may have had other tests and procedures not included in this list. Please discuss all test resultswith your provider. CBC w/ Differential (04/29/2024) ???WBC - 6.9 k/mm3???RBC - 4.85 m/mm3???Hgb - 14.5 Gm/dL???Hct - 42.4 %???MCV - 87.4 femtoliters???MCH - 29.9 pg???MCHC - 34.2 Gm/dL???Platelet Count - 210 k/mm3???RDW-SD - 39.6 femtoliters???MPV - 11.2 femtoliters???Nucleated RBC (Automated) - 0.0 #/100 WBC'S???Abs. NRBC - 0.0 k/mm3???Abs. Neut - 4.0 k/mm3???Abs. Lymph - 2.2 k/mm3???Abs. Alpine - 0.5 k/mm3???Abs. Eo - 0.1 k/mm3???Abs. Baso - 0.0 k/mm3???Neut % - 58.7 %???Lymph % - 31.5 %???Alpine % - 7.7 %???Eos % - 1.7 %???Baso % - 0.3 %???Imm Gran - 0.1 %???Abs. Imm Gran - 0.0 k/mm3 Type and Screen (04/29/2024) ???Blood Type - B Positive???Antibody Screen - Negative You will be contacted within 72 hours with your results. Allergies (NKA means No Known Allergies) Adhesive Bandage??(RASH) Cats??(hives) Other Environmental Allergy??(seasonal allergies-dust, trees, grass= coughing, sneezing, runny eyes) Problems Active Problems??(3) Enlarged tonsils?? Obese class I?? Smoking?? Education Materials Below is the list of Educational Leaflet Providered with your Discharge Instructions. Valuables and Belongings I fully understand and agree that [facility] accepts no responsibility for all my personal property including clothing, toilet articles, radios, jewelry, dentures, hearing aids, rings, money, or any other property that is in my possession or is brought to me after admission. I understand certain valuables may be placed in a hospital safe for a short period of time. I understand that the hospital is not liable for loss or damage due to accident, fire, or other natural occurrence while said property is in the safe. I accept full responsibility for any personal property that I keep with me, and will not hold the hospital responsible in case of loss or disappearance. I acknowledge that i have been encouraged to send valuables and belongings home. ?? Review of Valuable and Belonging List: With patient Date for Pt to Sign Valuables/Belongings: 04/29/24 17:45:00 ?? Other Discharge Information ? Pulmonary Rehab Status?? Pulmonary Rehab Discharge Status?? Respiratory Rate: 18 br/min ? Common Emergency Awareness Tips IS IT A STROKE? Act FAST and Check for these signs: FACE Does the face look uneven? ARM Does one arm drift down? SPEECH Does their speech sound strange? TIME Call at any sign of stroke ?? Heart Attack Signs Chest discomfort: Most heart attacks involve discomfort in the center of the chest and lasts more than a few minutes, or goes away and comes back. It can feel like uncomfortable pressure, squeezing, fullness or pain. Discomfort in upper body: Symptoms can include pain or discomfort in one or both arms, back, neck, jaw or stomach. Shortness of breath: With or without discomfort. Other signs: Breaking out in a cold sweat, nausea, or lightheaded. Remember, MINUTES DO MATTER. If you experience any of these heart attack warning signs, call to get immediate medical attention! ?? Smoking can increase your chances of developing chronic health problems and can cause harmful effects to other family members in your house. If you smoke, you are strongly encouraged to quit. Please call [facility] [employer] Link at [phone] or [phone] ([phone]) or log in to [email or web address] for referrals to smoking cessation programs. ?? 938 Suicide & Crisis Lifeline is available 08/01 if you or someone you know needs to find a reason to keep living. By calling 414 you'll be connected to a skilled, trained counselor at a crisis center in your area. INPATIENT DISCHARGE INSTRUCTIONS SIGNATURE PAGE ELLA FRANCINE Location:[facility] Registration Date and Time:04/29/2024 10:55 EST Primary Care Physician: Melania Winkler DO, Attending Physician: Arnold Gamez MD, I FRANCINE JARAMILLO, have received the above patient education materials/instructions and have verbalized understanding. If ambulance or transport services are being used I further acknowledge being given a choice of service. ?? If you need to contact me, please call me at this number: . Patient/Marketing Pr Intern Name: Patient/Marketing Pr Intern Signature: Relationship to Patient: Witness Name/Signature: Date: Patient Care team information Care Team Personnel Name: Dorothea Salgado RN Position: S RN Member Role: Primary Care Nurse Name: Candy Machado RN Position: [facility] OB RN Member Role: Primary Care Nurse Name: Melania Winkler DO Position: S Physician - Primary Care Member Role: PCP Address: [address] [place] [address] Telecom: Name: Pat Mercado RN Position: S RN Member Role: Primary Care Nurse Care Team Related Persons Name: MÓNICA ABRAMS Insurance Providers Guarantor name: NA Health Plan Information #: 1 Payer: [employer] Member Number: [id number] Policy Number: NISHANT Group Number: [facility] Information #: 2 Payer: [employer] SENSE ACO Member Number: [id number] Policy Number: NISHANT Group Number: NISHANT
--- OUTSIDE RECORDS SUMMARY | 2024-05-29 11:14 | XMS_ITS ---
Continuity of Care Document (CCD) Created on: May 29, 2024 Francine Rice External Reference #: [id number] : [id number] Sex: Female Author Organization [facility] [address] [facility] [address] [place] [address] Phone [phone] Care Team Providers Care Body Mechanic Name Role Phone Josette Catherine M.D. Care Team Information Impact Retail Service Merchandiser + [phone] Problems Active Problems Provider Date Hypothyroidism Jose Jonas M.D. Onset: 0 12/28/2022 Social History Type Date Description Comments Sex Unknown ETOH Use Rarely consumes alcohol Tobacco Use Start: Unknown End: Unknown Patient is a former smoker Smoking Status Reviewed: 12/28/22 Patient is a former smoker Allergies and adverse reactions Description No Known Drug Allergies Medications Active Medications SIG Qnty Indications Ordering Provider Date Levothyroxine [id number] Tablets 1 tab by mouth daily 90tabs Jose Jonas M.D. 12/28/2022 Fluoxetine FIG20vx Capsules 1 by mouth every day JuanitacapArnold Laird M.D. Vital Signs Date Vital Result Comment 12/28/2022 10:30am BP Systolic 120 mmHg BP Diastolic 80 mmHg Heart Rate 72 /min Height 65.5 inches 5'5.50 Weight 192.50 lb BMI (Body Mass Index) 31.5 kg/m2 Medical Devices Description No Information Available Encounters Type Date Location Provider Dx Diagnosis Office Visit 12/28/2022 10:15a Main Office Jose Jonas M.D. E03.9 Hypothyroidism, unspecified Assessments Date Code Description Provider 12/28/2022 E03.9 Hypothyroidism Jose cates M.D. Plan of Treatment 12/28/2022 - Jose Jonas M.D.* E03.9 Hypothyroidism * Functional Status Description No Information Available Mental Status Description No Information Available Referrals Description No Information Available
[2024-05-29 12:04] LABS: Hematocrit 43.2 % (37.0-47.0); Hemoglobin 14.5 g/dl (12.0-16.0); Mean Corpuscular HGB Conc 33.6 g/dl (31.0-35.0); Mean Corpuscular Hemoglobin 29.9 pg (27.0-33.0); Mean Corpuscular Volume 89.1 fL (80.0-98.0); Mean Platelet Volume 11.2 fL (9.4-12.3); Platelet Count 240 X10*3/uL (160-400); Red Blood Count 4.85 X10*6/uL (4.20-5.50); White Blood Count 6.5 X10*3/uL (4.8-10.8)
[2024-05-29 12:32] LABS: Iron 86 mcg/dL (30-160); Percent Iron Saturation 27 % (15-50); Total Iron Binding Capacity 315 mcg/dL (228-428); Unsaturated Iron Binding 229 ug/dL
[2024-05-29 12:51] LABS: Ferritin 58 ng/mL (10-250); TSH reflex Free T4 0.14 uIU/mL (0.32-4.0); Vitamin D 25-OH Total 32.1 ng/mL (>30)
[2024-05-29 13:04] LABS: Folate 10.3 ng/mL (> or = 4.0); Vitamin B12 258 pg/mL (200-900)
[2024-05-29 13:29] LABS: Free T4 (Free Thyroxine) 1.55 ng/dL (0.71-1.85)
[2024-05-30 09:49] LABS: Immunoglobulin A 211 mg/dL (47-310)
[2024-05-30 20:53] LABS: Transglutaminase IgA <1.0 U/mL
[2024-06-06 00:53] LABS: Calprotectin, Fecal 39 mcg/g
== END 2024-05-29 11:10 | disposition home or self-care (01) ==
LOC: HO.LAB 11:09
PROVIDERS: PCP Family Medicine; Visit Provider Internal Medicine
DX: K52.9 Noninfective gastroenteritis and colitis, unspecified (principal)
CPT/HCPCS: 36415; 82306; 82607; 82728; 82746; 82784; 83540; 83993; 84439; 84443; 85027; 86140; 86364

== ENCOUNTER 2024-06-25 10:24 | Outpatient (AMB) | payer OTHER, SELFPAY ==
[2024-06-25 10:25] VITALS: BP 122/73; PULSE 91; BMI 33.4
--- NOTE | 2024-06-25 10:25 | MHC.OFFVIS ---
Vital Signs 06/25/24 10:25 Height 5 ft 5 in Weight 201 lb BMI 33.4 BP 122/73 Blood Pressure Location Rt brachial Position Sitting Pulse 91 Intake Visit Reasons: abscess on buttock Intake Note: This patient presents for perirectal abscess. Pt c/o; Onset 1 week, reports no drainage or discharge, reports she has been doing hot soaks, reports throbbing pain. Forensic Psychiatrist Required: No Accompanied by: Self / Same As Patient Allergies adhesive tape [ADHESIVE TAPE] Allergy (Intermediate, Verified 06/25/24 10:33) RASH adhesive Allergy (Unknown, Uncoded 06/25/24 10:33) rash cortisone injection Allergy (Uncoded 06/25/24 10:33) Swelling Medication List - Last Reconciled 06/25/24 by Dago De Souza MD cetirizine 10 mg PO DAILY fluoxetine 1 cap PO DAILY fluticasone propionate 50 mcg/actuation 1 spray intranasal BID hydrocortisone 1% appl topical hyoscyamine sulfate 0.125 mg PO BID-QID PRN 60 days ibuprofen 600 mg PO Q6H PRN levothyroxine 137 mcg PO MOTUWETHFRSA@0630 lidocaine 5% 1 appl topical TID PRN menthol-zinc oxide 0.44-20.6 % (Calmoseptine) 1 appl topical QID PRN omeprazole 20 mg PO DAILY ondansetron HCl 4 mg PO Q8H PRN 5 days HPI HPI abscess on buttock: Details: She called the office because of recurrent swelling and drainage on the right perianal area. 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 She says that she would feel sharp pain periodically and would notice cyclical drainage. She says that this is similar to when she 1st had a fistula a few years ago. [facility] Medical History (Updated 06/25/24 @ 10:45 by Dago De Souza MD) Anal pain Lipoma Buttock pain External hemorrhoids with complication Smoker Depression Hypothyroidism Surgical History Hx of colonoscopy Hx of total hysterectomy Hx of surgical procedure (~03/23/23) Hx of surgical procedure History of anal fissures Status post de Quervain's release surgery History of surgery on right wrist Hx of tonsillectomy History of incision and drainage History of bilateral oophorectomy Family History Paternal Aunt Breast CA Paternal Aunt Breast CA Social History Household Members: Family and Children Housing: House Patient Tobacco Use Status: Current everyday Tobacco user Tobacco use type: Cigarette Cigarettes Per Day: 10.0 Second Hand Smoke Exposure: No Substance Use Type: Marijuana service: No Current occupational status: employed 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 Review of Systems Const Denies chills and Denies fever(s) Card Denies chest pain, Denies dyspnea and Denies dyspnea on exertion Resp Denies cough, Denies dyspnea and Denies dyspnea on exertion GI Denies hematochezia and Denies change in bowel habits Denies hematuria Musc Denies back pain and Denies limited range of motion Neuro Denies focal weakness and Denies convulsions Psych Denies depression and Denies mood swings Physical Exam Vital Signs: Last Vital Signs Pulse 91 06/25/24 10:25 BP 122/73 06/25/24 10:25 BMI result Body Mass Index 33.4 Const General: comfortable and no acute distress Resp Effort & Inspection: normal respiratory effort Cardio Rate: regular rate GI Other: Rectal exam - scar on the right perianal area from her previous fistula with no obvious sinus, no drainage, no induration, no palpable mass, no redness External hemorrhoid on the left noted, polypoid in draped Palpation (GI): Soft to palpation, not firm and nontender Office Procedures Anoscopy She was in milli-knife position. The anoscope was gently inserted. A full examination of the anal canal was done. There was no suggestion of any internal fistulous tract. There was no induration on the anal canal. There was no sinus . There was no bleeding. [id number] Assessment & Plan Assessment & Plan (1) Anal pain: Code(s): K62.89 - Other specified diseases of anus and rectum Category: Medical Plan: She continues to have pain on the right perianal area and describes cyclical swelling and drainage. I do not see any obvious fistula tract. She does have a history of an anal fistula with a seton in place for a long time I am going to order for an MRI again to see if she there were any occult fistula tracts. I have also mentioned to her that we can consider bringing her back to the OR for an exam under anesthesia and says that she wants the external hemorrhoid in the left side removed Coding Level of Care Code Est Pt Level 3 (20120) Diagnoses Anal pain K62.89 CPT Codes Details - CPT: 65581-Dxpuiwqk ([id number])
== END 2024-06-25 11:06 | disposition home or self-care (01) ==
PROVIDERS: PCP Family Medicine; Visit Provider Surgery
DX: K62.89 Other specified diseases of anus and rectum (principal)
CPT/HCPCS: 46600; 99213

== ENCOUNTER → 2024-06-25 10:24 | Outpatient (BNVA) | payer OTHER, SELFPAY | PROVIDERS: PCP Family Medicine; Visit Provider Surgery | DX: K62.89 Other specified diseases of anus and rectum (principal) | CPT/HCPCS: 46600; 99212 ==

== ENCOUNTER → 2024-06-26 19:39 | Outpatient (BNV) | payer OTHER, SELFPAY | PROVIDERS: PCP Family Medicine; Visit Provider Radiology Diagnostic Radiology | DX: K62.89 Other specified diseases of anus and rectum (principal) | CPT/HCPCS: 72197 ==

== ENCOUNTER 2024-06-26 19:45 | Outpatient (REF) | payer OTHER, SELFPAY ==
--- NOTE | ~2024-06-26 | MR_ITS ---
EXAMINATION: MR PELVIS WITHOUT THEN WITH IV CONTRAST HISTORY: K62.89 - Other specified diseases of anus and rectum. TECHNIQUE: Sagittal and coronal T2, and axial T1 and fat-suppressed T2-weighted MR images of the pelvis were obtained. Subsequently, axial and sagittal fat-suppressed T1-weighted images were obtained after the intravenous administration of 10 mL Gadavist. COMPARISON: Comparison is made with the prior examination dated 07/11/2022. Correlation is also made with a CT of the pelvis dated 08/29/2023. FINDINGS: No perianal fistula or fluid collection is identified. There is no significant rectal wall thickening. There is no ascites in the pelvis. There is no lymphadenopathy. The urinary bladder is collapsed. The patient is status post hysterectomy. MR/MR pelvis wo/w con IMPRESSION: No evidence of an anal fistula. Electronically signed by: Arnold Quezada MD 06/30/2024 01:41 PM [facility]
--- OUTSIDE RECORDS SUMMARY | 2024-06-26 19:48 | XMS_ITS | Continuity of Care Document ---
Author Organization [facility] [address] [facility] [address] [place] [address] Phone [phone] Care Team Providers Care Therapeutic Consultant Name Role Phone Josette Catherine M.D. Care Team Information Engine Repair Supervisor + [phone] Problems Active Problems Provider Date Hypothyroidism Jose [...] SIG Qnty Indications Ordering Provider Date Levothyroxine [id number] Tablets 1 tab by mouth daily 90tabs Jose Jonas M.D. 12/28/2022 Fluoxetine EXY92br Capsules 1 by mouth every day JuanitacapArnold [...]
--- OUTSIDE RECORDS SUMMARY | 2024-06-26 19:48 | XMS_ITS | Continuity of Care Document ---
Author Organization [facility] ter Address [address] [place] [address]- Care Team Providers Care Gas Torch Solderer Name Role Phone Cait juanymode Melania Primary Care Karishma simpson Encounter [facility] Date(s): 06/10/24 - 06/10/[address] [address]- Discharge Disposition: A-D/C Walkout Attending Physician: Not on Staff, Attending MD Admitting Physician: Not on Staff, Admitting MD Referring Physician: Not on Staff, Referring MD Encounter Type: Disch ES Allergies, Adverse Reactions, Alerts Substance Criticality Severity [...] Maintenance, 04/30/24 6:49:00 AM EST, Tablet, [id number], Partial fill upon patient request if the [...] Quantity: 16.0 Unit: g Repeat number: 2 levothyroxine 137 mcg (0.137 mg) oral capsule 1 capsule = 137 mcg, By Mouth, Daily in AM, 0 Refills, Maintenance, 03/30/20 2:42:00 PM EDT Start Date: 03/30/20 Status: Ordered Repeat number: 1 ZyrTEC 10 mg oral tablet 1 tablet = 10 mg, By Mouth, Daily at bedtime, 0 Refills, Maintenance, 03/30/20 2:43:00 PM EDT Start Date: 03/30/20 Status: Ordered Repeat number: 1 Problem List Condition Confirmation Course Effective Dates Status Health St atus Informant Enlarged tonsils Confirmed Active Obese class I Confirmed Active Smoking Confirmed Active Vital Signs Most recent to oldest [Reference Range]: 1 Height 165 cm (06/10/24 12:21 AM) Weight 88 kg (06/10/24 12:21 AM) Oxygen Saturation [94-100 %] 100 % (06/10/24 12:21 AM) Pulse Rate [55-90 bpm] 54 bpm *L* (06/10/24 12:21 AM) Body Mass Index [18.5-24.99 kg/m2] 32.32 kg/m2 *>HHI* (06/10/24 12:21 AM) Blood Pressure [90-138/55-84 mm Hg] 119/ 70mm Hg (06/10/24 12:21 AM) Respiratory Rate [16-30 br/min] 20 br/mi n (06/10/24 12:21 AM) Temperature [96.8-100.4 DegF] 98.4 DegF (06/10/24 12:21 AM) Mode of Delivery (Oxygen) Room air (06/10/24 12:21 AM) Temperature Route Oral (06/10/24 12:21 AM) Weight Obtained Via Patient/family state d (06/10/24 12:21 AM) Social History Social History Type Response Smoking Status Never smoker entered on: 05/21/17 Sex Sex Representation Female (finding) Patient Care team information Care Team Personnel Name: Dorothea Salgado RN Position: S RN Member Role: Primary Care Nurse Name: Candy Machado RN Position: [facility] OB RN Member Role: Primary Care Nurse Name: Melania Winkler DO Position: [facility] Physician - Primary Care Member Role: PCP Address: [address] [place] [address] Telecom: Name: Pat Mercado RN Position: [facility] RN Member Role: Primary Care Nurse Care Team Related Persons Name: MÓNICA ABRAMS Insurance Providers Guarantor name: NISHANT Health Plan Information #: 1 Payer: [employer] Member Number: [id number] Policy Number: NA Group Number: NA Health Plan Information #: 2 Payer: [employer] Member Number: [id number] Policy Number: NA Group Number: NA
[2024-06-26] MEDS: gadobutroL 10 ML VIAL IVPUSH (20:24)
== END 2024-06-26 19:46 | disposition home or self-care (01) ==
LOC: HO.MRI 19:45
PROVIDERS: PCP Family Medicine; Visit Provider Surgery
DX: K62.89 Other specified diseases of anus and rectum (principal)
CPT/HCPCS: 72197; A9585

== ENCOUNTER 2024-07-07 14:45 | Outpatient (AMB) | payer OTHER, SELFPAY ==
[2024-07-07 14:49] VITALS: BMI 33.4
--- NOTE | 2024-07-07 14:49 | MHC.OFFVIS ---
Vital Signs 07/07/24 14:49 Height 5 ft 5 in Weight 200 lb 15.997 oz BMI 33.4 Intake Visit Reasons: s/p MRI 06/26/24 Intake Note: This patient presents for MRI follow-up. Pt c/o; no concerns. Chip Loft Worker Required: No Accompanied by: Self / Same As Patient Allergies adhesive tape [ADHESIVE TAPE] Allergy (Intermediate, Verified 07/07/24 14:50) RASH adhesive Allergy (Unknown, Uncoded 07/07/24 14:50) rash cortisone injection Allergy (Uncoded 07/07/24 14:50) Swelling Medication List - Last Reconciled 07/07/24 by Dago De Souza MD cetirizine 10 mg PO DAILY fluoxetine 1 cap PO DAILY fluticasone propionate 50 mcg/actuation 1 spray intranasal BID hydrocortisone 1% appl topical hyoscyamine sulfate 0.125 mg PO BID-QID PRN 60 days ibuprofen 600 mg PO Q6H PRN levothyroxine 137 mcg PO MOTUWETHFRSA@0630 lidocaine 5% 1 appl topical TID PRN menthol-zinc oxide 0.44-20.6 % (Calmoseptine) 1 appl topical QID PRN omeprazole 20 mg PO DAILY ondansetron HCl 4 mg PO Q8H PRN 5 days HPI HPI s/p MRI 06/26/24: Details: She is here for follow-up to discuss her MRI of the pelvis. I had sent her for an MRI because of her frequent throbbing pain in the old fistula site in the anus. Examination in the office did not suggest any recurrent fistula. [facility] Medical History Anal pain Lipoma Buttock pain External hemorrhoids with complication Smoker Depression Hypothyroidism Surgical History Hx of colonoscopy Hx of total hysterectomy Hx of surgical procedure (~03/23/23) Hx of surgical procedure History of anal fissures Status post de Quervain's release surgery History of surgery on right wrist Hx of tonsillectomy History of incision and drainage History of bilateral oophorectomy Family History Paternal Aunt Breast CA Paternal Aunt Breast CA Social History Household Members: Family and Children Housing: House Patient Tobacco Use Status: Current everyday Tobacco user Tobacco use type: Cigarette Cigarettes Per Day: 10.0 Second Hand Smoke Exposure: No Substance Use Type: Marijuana service: No Current occupational status: employed 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 Review of Systems Const Denies chills and Denies fever(s) Card Denies chest pain, Denies dyspnea and Denies dyspnea on exertion Resp Denies cough, Denies dyspnea and Denies dyspnea on exertion GI Denies hematochezia and Denies change in bowel habits Denies hematuria Musc Denies back pain and Denies limited range of motion Neuro Denies focal weakness and Denies convulsions Psych Denies depression and Denies mood swings Physical Exam Vital Signs: BMI result Body Mass Index 33.4 Const Other: Sitting down comfortably General: comfortable and no acute distress Resp Effort & Inspection: normal respiratory effort Cardio Rate: regular rate GI Other: Rectal exam shows no induration in the perianal area, no recurrent fistula tract or sinus, no cellulitis, no discharge Palpation (GI): Soft to palpation Assessment & Plan Assessment & Plan (1) Anal pain: Code(s): K62.89 - Other specified diseases of anus and rectum Category: Medical Plan: She has had this recurrent throbbing pain on the right perianal area from her old fistula site. I have reviewed her MRI and this does not suggest any new fistula or any abscess. Examination does not suggest any recurrent sinus or any fistulous disease. I assured her about my findings as above. I told her that she is welcome to come back to the office if she has further concerns down the line. Coding Level of Care Code Est Pt Level 3 (64516) Diagnoses Anal pain K62.89
== END 2024-07-07 14:59 | disposition home or self-care (01) ==
PROVIDERS: PCP Family Medicine; Visit Provider Surgery
DX: K62.89 Other specified diseases of anus and rectum (principal)
CPT/HCPCS: 99213

== ENCOUNTER → 2024-07-07 14:45 | Outpatient (BNVA) | payer OTHER, SELFPAY | PROVIDERS: PCP Family Medicine; Visit Provider Surgery | DX: K62.89 Other specified diseases of anus and rectum (principal) | CPT/HCPCS: 99212 ==

== ENCOUNTER 2024-11-17 21:09 | Emergency (ER) | payer OTHER, SELFPAY ==
--- NOTE | ~2024-11-17 | CT_ITS ---
CLINICAL HISTORY: pancoast mass???l side CT chest without contrast Comparison: None Findings: The heart is normal size. Residual thymic tissue in the anterior mediastinum is unremarkable. No consolidation, effusion, or pneumothorax. No pulmonary masses. No abnormal apical pleural thickening. The upper abdomen is unremarkable. No acute fractures. IMPRESSION: No evidence of pancoast tumor. This document has been electronically signed by: Dalia Orta MD on 11/18/2024 03:27:17
[2024-11-17 21:25] VITALS: BP 122/77; PULSE 70; RESP 18; TEMP 36.6; O2SAT 99; BMI 32.8
[2024-11-18] MEDS: Ketorolac Tromethamine 60 MG/2 ML VIAL IM (02:45)
--- NOTE | 2024-11-18 03:29 | ED.GENADULT ---
HPI - General Adult General Chief complaint: Extremity Problem Stated complaint: armpit and hand pain..gave platelets today Time Seen by Provider: 11/18/24 01:32 Source: patient Mode of arrival: ambulatory Limitations: no limitations History of Present Illness ED Provider: HPI narrative: patient apparently donated platelets earlier today as usual within an hour of the donation patient noticed numbness burning sensation in the left deltoid and left side of the chest and left hand no neck pain no headache no history of similar complaints in the past no shortness a breath no cough no weakness of the muscle Related Data Home Medications ?Medication ?Instructions ?Recorded ?Confirmed fluoxetine 10 mg capsule 1 cap PO DAILY 10/27/21 07/07/24 levothyroxine 137 mcg tablet 137 mcg PO MOTUWETHFRSA@0630 10/27/21 07/07/24 cetirizine 10 mg tablet 10 mg PO DAILY 05/19/24 07/07/24 fluticasone propionate 50 1 spray intranasal BID 05/19/24 07/07/24 mcg/actuation nasal spray,suspension hydrocortisone 1 % topical cream appl topical 05/19/24 07/07/24 omeprazole 20 mg capsule,delayed 20 mg PO DAILY 05/19/24 07/07/24 release Previous Rx's ?Medication ?Instructions ?Recorded ondansetron HCl 4 mg tablet 4 mg PO Q8H PRN nausea and 09/01/22 vomiting 5 days #15 tabs menthol 0.44 %-zinc oxide 20.6 % 1 appl topical QID PRN perianal 10/05/22 topical ointment (Calmoseptine) burning #113 grams lidocaine 5 % topical ointment 1 appl topical TID PRN Hemorrhoid 11/15/22 pain #30 grams ibuprofen 600 mg tablet 600 mg PO Q6H PRN pain #30 tabs 07/09/23 hyoscyamine sulfate 0.125 mg tablet 0.125 mg PO BID-QID for abdominal 07/17/24 pain #60 tabs Allergies Allergy/AdvReac Type Severity Reaction Status Date / Time adhesive tape [ADHESIVE TAPE] Allergy Intermediate RASH Verified 11/17/24 21:27 adhesive Allergy Unknown rash Uncoded 11/17/24 21:27 cortisone injection Allergy Swelling Uncoded 11/17/24 21:27 Review of Systems Review of Systems: Yes all other systems are reviewed and are negative PMFSH Past Medical History Medical History Anal pain Lipoma Buttock pain External hemorrhoids with complication Smoker Depression Hypothyroidism Surgical History Hx of colonoscopy Hx of total hysterectomy Hx of surgical procedure (~03/23/23) Hx of surgical procedure History of anal fissures Status post de Quervain's release surgery History of surgery on right wrist Hx of tonsillectomy History of incision and drainage History of bilateral oophorectomy Family History Family History Paternal Aunt Breast CA Paternal Aunt Breast CA Social History Social History Household Members: Family and Children Housing: House Patient Tobacco Use Status: Current everyday Tobacco user Tobacco use type: Cigarette Cigarettes Per Day: 10.0 Second Hand Smoke Exposure: No Substance Use Type: Marijuana service: No Current occupational status: employed 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 Oriented X3. No acute distress. Eyes: PERRLA, No Nystagmus ENT: Pharynx normal. Oral Mucosa moist Neck: Normal inspection. Neck supple. no midline tenderness CVS: Normal heart rate and rhythm. Pulses normal. Respiratory: No respiratory distress. Equal air entry bilateral, no wheezing/rales/rhonchi Abdomen: Soft and nontender. Bowel sounds are present, no mass palpable, no CVA tenderness Skin: Skin warm and dry. Normal skin color. Normal skin turgor. Extremities: No lower extremity edema. No calf tenderness Neuro: Oriented X 3. No motor deficit. subjective decreased sensation left lateral aspect of the hand , No sensory deficit.No cerebellar signs , cranial nerves II-XII intact Medications Administered Discontinued Medications Generic Name Dose Route Start Last Admin Trade Name Freq PRN Reason Stop Dose Admin Ketorolac Tromethamine 60 mg 11/18/24 02:40 11/18/24 02:45 Ketorolac Tromethamine 60 Mg/2 Ml Vial IM 11/18/24 02:41 60 mg ONCE ONE Administration Medical Decision Making Medical Decision Making [facility] Narrative: patient nonspecific burning sensation and paresthesia in the left hand without any neck pain or injury also noticed burning pain on the left side of the chest in axillary area no rash noticed etiology not clear will do CT scan of the chest to rule out Pancoast tm Differential Diagnosis Differential Diagnoses: The differential diagnosis associated with the presentation includes Neurapraxia/Pancoast tumor/paresthesia Lab Data [facility] Lab Attestation statement: I reviewed the patient's lab results. 11/18/24 03:54 11/18/24 03:54 Labs: Lab Results 11/18/24 Range/Units 03:54 WBC 7.2 (4.8-10.8) X10*3/uL RBC 4.49 (4.20-5.50) X10*6/uL Hgb 13.6 (12.0-16.0) g/dl Hct 39.1 (37.0-47.0) % MCV 87.1 (80.0-98.0) fL MCH 30.3 (27.0-33.0) pg MCHC 34.8 (31.0-35.0) g/dl RDW 12.7 (11.0-16.0) % Plt Count 105 L D (160-400) X10*3/uL MPV 11.3 (9.4-12.3) fL Immature Gran % (Auto) 0.3 (0.0-0.4) % Neut % (Auto) 51.6 (45-73) % Lymph % (Auto) 36.6 (20-40) % [place] % (Auto) 8.6 (2-11) % Eos % (Auto) 2.6 (0-4) % Baso % (Auto) 0.3 (0-2) % Lymph # (Auto) 2.6 (1.2-4.9) X10*3/uL [place] # (Auto) 0.6 (0.1-1.2) X10*3/uL Eos # (Auto) 0.2 (0.0-0.4) X10*3/uL Baso # (Auto) 0.0 (0.0-0.2) X10*3/uL Abs Immat Gran (auto) 0.02 (0.00-0.03) X10*3/uL Absolute Neuts (auto) 3.7 (2.0-8.3) x10*3/uL Absolute Nucleated RBC 0.000 (0.0-0.012) X10*3/uL Nucleated RBC % (auto) 0.0 (0.0-0.2) /100WBC Sodium 142 (135-145) mmol/L Potassium 3.4 (3.3-5.1) mmol/L Chloride 109 H (96-108) mmol/L Carbon Dioxide 24 (22-29) mmol/L Anion Gap 12 (12-20) BUN 10 (9-16) mg/dL Creatinine 0.60 (0.5-1.4) mg/dL Estim Creat Clear Calc 137.3 Estimated GFR > 60 Random Glucose 95 (60-115) mg/dL Calcium 8.6 D (8.4-10.2) mg/dL Magnesium 1.8 (1.6-2.6) mg/dL Total Bilirubin 0.3 (0.0-1.0) mg/dL AST 19 (5-31) U/L ALT 20 (0-31) U/L Alkaline Phosphatase 34 L (39-117) U/L Total Protein 6.1 L (6.5-8.0) g/dL Albumin 3.6 (3.5-5.0) g/dL Independent Interpretation I performed an independent interpretation of an: CT Scan Interpretation: Negative chest CT Discharge Plan Discharge Clinical Impression: Paresthesia and pain of left extremity Patient Disposition: Home, Self-Care Instructions: Paresthesia (ED) Additional Instructions: Cause of paresthesia not clear Follow up with neurologist/PCP for further evaluation if the symptoms continues Look for the skin rash if any as it could be early signs of shingles Prescriptions: No Action ondansetron HCl 4 mg tablet 4 mg PO Q8H PRN (Reason: nausea and vomiting) 5 Days Qty: 15 0RF hyoscyamine sulfate 0.125 mg tablet 0.125 mg PO BID-QID Qty: 60 0RF levothyroxine 137 mcg tablet 137 mcg PO MOTUWETHFRSA@0630 fluoxetine 10 mg capsule 1 cap PO DAILY cetirizine 10 mg tablet 10 mg PO DAILY omeprazole 20 mg capsule,delayed release(DR/EC) 20 mg PO DAILY hydrocortisone 1 % cream topical fluticasone propionate 50 mcg/actuation spray,suspension 1 spray intranasal BID menthol-zinc oxide [Calmoseptine] 0.44-20.6 % ointment 1 appl topical QID PRN (Reason: perianal burning) Qty: 113 0RF lidocaine 5 % ointment 1 appl topical TID PRN (Reason: Hemorrhoid pain) Qty: 30 0RF ibuprofen 600 mg tablet 600 mg PO Q6H PRN (Reason: pain) Qty: 30 0RF Stand Alone Forms: Work/School Release Interventions: ED Discharge Assessment Last Done: 11/18/24 05:17 Discharge Date/Time: 11/18/24 05:38 Print Language: Ethiopian
[2024-11-18 03:58] LABS: MANUAL DIFF FLAG NO
[2024-11-18 04:01] LABS: Basophils Percent Auto 0.3 % (0-2); Eosinophils Absolute Auto 0.2 X10*3/uL (0.0-0.4); Eosinophils Percent Auto 2.6 % (0-4); Hematocrit 39.1 % (37.0-47.0); Hemoglobin 13.6 g/dl (12.0-16.0); Imm Gran Abs Auto 0.02 X10*3/uL (0.00-0.03); Imm Gran Pct Auto 0.3 % (0.0-0.4); Lymphocytes Absolute Auto 2.6 X10*3/uL (1.2-4.9); Lymphocytes Percent Auto 36.6 % (20-40); Mean Corpuscular HGB Conc 34.8 g/dl (31.0-35.0); Mean Corpuscular Hemoglobin 30.3 pg (27.0-33.0); Mean Corpuscular Volume 87.1 fL (80.0-98.0); Mean Platelet Volume 11.3 fL (9.4-12.3); Monocytes Absolute Auto 0.6 X10*3/uL (0.1-1.2); Monocytes Percent Auto 8.6 % (2-11); Neutrophils Absolute Auto 3.7 x10*3/uL (2.0-8.3); Neutrophils Percent Auto 51.6 % (45-73); Platelet Count 105 X10*3/uL (160-400); Red Blood Count 4.49 X10*6/uL (4.20-5.50); Red Cell Distribution Width 12.7 % (11.0-16.0); White Blood Count 7.2 X10*3/uL (4.8-10.8)
[2024-11-18 04:14] LABS: Alanine Aminotransferase 20 U/L (0-31); Albumin Level 3.6 g/dL (3.5-5.0); Alkaline Phosphatase 34 U/L (39-117); Anion Gap 12 (12-20); Aspartate Amino Transferase 19 U/L (5-31); Bilirubin Total 0.3 mg/dL (0.0-1.0); Blood Urea Nitrogen 10 mg/dL (9-16); Calcium 8.6 mg/dL (8.4-10.2); Carbon Dioxide 24 mmol/L (22-29); Chloride 109 mmol/L (96-108); Creatinine Clr Calc Pharmacy 137.3; Estimated Glomerular Filt Rate > 60; Glucose Random 95 mg/dL (60-115); Magnesium 1.8 mg/dL (1.6-2.6); Potassium 3.4 mmol/L (3.3-5.1); Sodium 142 mmol/L (135-145); Total Protein 6.1 g/dL (6.5-8.0)
[2024-11-18 05:17] VITALS: BP 102/67; PULSE 65; RESP 16; TEMP 36.5; O2SAT 97
== END 2024-11-18 05:38 | disposition home or self-care (01) ==
PROVIDERS: Emergency Provider Internal Medicine; PCP Family Medicine
DX: R20.2 Paresthesia of skin (principal); E03.9 Hypothyroidism, unspecified; Z79.899 Other long term (current) drug therapy
CPT/HCPCS: 36415; 71250; 80053; 83735; 85025; 96372; 99284; J1885

== ENCOUNTER → 2024-11-18 02:02 | Outpatient (BNV) | payer OTHER, SELFPAY | PROVIDERS: Emergency Provider Internal Medicine; PCP Family Medicine; Visit Provider Radiology Diagnostic Radiology | DX: C34.10 Malignant neoplasm of upper lobe, unspecified bronchus or lung (principal) | CPT/HCPCS: 71250 ==